=== PATIENT | female | born 1945 | race Caucasian/White ===

== ENCOUNTER → 2016-07-06 | Outpatient (CLI) | payer BC ==
[~2016-07-06] MED LIST: ASPI-435 PO; ATOR10TA82 PO; CALC600T37 PO; LEVO25TA5 PO; NRV/5 PO; TRAV0.00 OP
--- NOTE | 2016-07-06 16:44 | MAMMOGRAPHY REPORT ---
BILATERAL DIGITAL SCREENING MAMMOGRAM TOMOSYNTHESIS WITH CAD: 07/06/2016 CLINICAL HISTORY: Routine screening. Patient has no complaints. TECHNIQUE: Breast tomosynthesis in addition to standard 2D mammography was performed. Current study was also evaluated with a Computer Aided Detection (CAD) system. COMPARISON: Comparison is made to exams dated: 07/16/2015 mammogram, 07/16/2015 ultrasound, 07/06/2015 mammogram, 07/04/2014 mammogram, 07/03/2013 mammogram, and 07/02/2012 mammogram - [facility]. BREAST COMPOSITION: There are scattered areas of fibroglandular density in both breasts. FINDINGS: No suspicious masses, calcifications, or areas of architectural distortion are noted in e ither breast. There has been no significant interval change compared to prior exams. IMPRESSION: ACR BI-RADS CATEGORY 1: NEGATIVE There is no mammographic evidence of malignancy. A 1 year screening mammogram is recommended. The p atient will receive written notification of the results. Approximately 10% of breast cancers are not detected with mammography. A negative mammographic repor t should not delay biopsy if a clinically suggestive mass is present. Jonelle Hernandez M.D. ah/:07/06/2016 15:52:31 Relationship Counselor: Monica HENAO(R)(M), [facility] letter sent: Normal 1/2 BI-RADS Code: ACR BI-RADS Category 1: Negative
== END | disposition home or self-care (01) ==
LOC: C.MAMM 11:11
PROVIDERS: ATTEND Family Medicine
DX: Z12.31 Encounter for screening mammogram for malignant neoplasm of breast (principal)

== ENCOUNTER → 2017-01-24 | Day surgery (SDC) | payer BC ==
[2016-12-29 08:17] VITALS: Ht 162.6 cm; Wt 93.2 kg
[~2017-01-24] VITALS: Ht 162.6 cm; Wt 93.2 kg
[~2017-01-24] MED LIST changes: +500ML BSS 0.3ML EPI 1:1000PF IRRIG ONE; +ACETAMINOPHEN 325 MG TAB PO PRN; +AMVISC PLUS 0.8ML SYRINGE INT OCU ONE; +ATROPINE SULFATE 0.1 MG/ML 5ML SYR IV PRN; +BSS FLUSH ONE; +EpHEDrine SULFATE INJ 50 MG/ML AMP IV PRN; +EpINEphrine INJ 1MG/ML AMP 1 MG/ML AMP ONE; +LACTATED RINGER'S 1000ML 500 ML IV SCH; +LIDOCAINE 3.5% OPH GEL PER APPLICATION CHARGE ONE; +LIDOCAINE HCL 1% MPF 2 ML VIAL ONE; +MIDAZOLAM HCL 1 MG/ML 2ML VIAL ONE; +OCUCOAT 1 ML SOLN IO ONE; +POVIDONE-IODINE OP SOLN 30 ML BTL ONE; +PROPARACAINE 0.5% OP SOLN PER DROP CHARGE OPR SCH; +TOBRAMYCIN/DEXAMETHASONE OPH OINT PER APPLN CHARGE ONE
[2017-01-24] MEDS: PHENYLEPHRINE HCL 2.5% OP SOLN PER DROP CHARGE OPR SCH ×2 (06:44→06:49)
[2017-01-24] MEDS: TROPICAMIDE 1% OP SOLN PER DROP CHARGE OPR SCH ×2 (06:45→06:50)
[2017-01-24] MEDS: CYCLOPENTOLATE HCL 1% OP SOLN PER DROP CHARGE OPR SCH ×2 (06:46→06:51)
[2017-01-24] MEDS: KETOROLAC 0.5% OP SOLN PER DROP CHARGE OPR SCH ×2 (06:47→06:52)
[2017-01-24] MEDS: GATIFLOXACIN OP SOLN PER DROP CHARGE OPR SCH ×2 (06:48→06:53)
--- NOTE | 2017-01-24 07:38 | History & Physical Bridge - SC ---
H&P Re-Evaluation Bridge Note: I have examined the patient, reviewed the History & Physical and in the interval since the performance of the History & Physical I have noted the following changes of clinical significance: No changes noted
--- NOTE | 2017-01-24 07:59 | Discharge Instructions-SurgCtr ---
Discharge Instructions Date of Service Jan 24, 2017. Visit Reason for Visit: Cataract Right Eye Discharge Discharge Diagnosis / Problem: cataract Discharge Goals Goal(s): Improve function Medications Stopped Medications Name(s): Only took two medications this morning. Activity Recommendations Activity Limitations: per Instructions/Follow-up section Anesthesia . Post Anesthesia Instructions: If you have had General Anesthesia or IV Sedation: * Do not drive today. * Resume driving when surgeon permits. * Do not make important decisions or sign legal documents today. * Call surgeon for: 1. Temperature elevations greater than 101 degrees F. 2. Uncontrollable pain. 3. Excessive bleeding. 4. Persistent nausea and vomiting. 5. Medication intolerance (nausea, vomiting or rash). * For nausea and vomiting use only clear liquids such as: tea, soda, bouillon until nausea subsides, then gradually increase diet as tolerated. * If you have any concerns or questions, call your surgeon's office. If physician is unavailable and it is an emergency, call 911 or go to the nearest emergency room. . Diet Recommendations Home Diet: resume previous diet Procedures Procedures Performed: Right Eye Cataract Phacoemulsification With Intraocular Lens Implant Pending Studies Studies pending at discharge: no Medical Emergencies . Who to Call and When: Medical Emergencies: If at any time you feel your situation is an emergency, please call 911 immediately. . Non-Emergent Contact Non-Emergency issues call your: Social Research Assistant . . "Provider Documentation" section prepared by Estuardo Doe. .
[2017-01-24 08:00] VITALS: TEMP 36.8
--- NOTE | 2017-01-24 08:00 | [facility] Operative Report ---
Operative Report Date of Service Jan 24, 2017. Operative Report 1. PREOPERATIVE DIAGNOSIS: Cataract of the right eye. 2. POSTOPERATIVE DIAGNOSIS: Same. 3. PROCEDURE: Phacoemulsification with intraocular lens implantation of the right eye. SURGEON: Dr. Estuardo Doe. ANESTHESIA: Topical Lidocaine gel, 1% Non- Preserved intracameral Lidocaine, and monitored intravenous sedation. INDICATIONS FOR THE PROCEDURE: The patient is a 71 - year-old female with a history of cataract of the right eye causing significant visual impairment. The details of the proposed procedure were explained to the patient who asked appropriate questions and following discussion of all risks, benefits and alternatives agreed to have the procedure done. 4. OPERATION AND FINDINGS: DESCRIPTION OF PROCEDURE: After informed consent was obtained, the patient was brought to the Operating Room at the [facility]. The patient was placed in a supine position and then the right eye was prepped and draped in the usual sterile fashion for intraocular surgery. A drop of topical Lidocaine gel was placed in the operative eye. A wire lid speculum was then placed in the fornices. A corneal paracentesis was then created temporally. The Non-Preserved Lidocaine was then instilled into the anterior chamber. The anterior chamber was then pressurized with viscoelastic. A 2.0 mm clear corneal incision was then created temporally. A cystotome was inserted into the anterior chamber and used to create a tear in the anterior lens capsule. This capsular tear was then used to create a small flap and the flap was dragged in a counterclockwise direction in order to create a continuous curvilinear capsulorrhexis. Hydrodissection was accomplished with balanced salt solution. Phacoemulsification of the lens nucleus was then performed in a standard [id number] technique. The phaco time was 18 seconds with an average power of 9 %. The remaining cortical material was removed using irrigation aspiration. The capsular bag was then filled with viscoelastic. A [employer]ch [employer] Lomb MI60L +11.0 diopters lens was then loaded into the injector and injected into the capsular bag. The remaining viscoelastic was removed with the irrigation aspiration handpiece. The wound was hydrated and then checked and found to be watertight. The intraocular pressure was checked and found to be adequate. The wire lid speculum was removed and the patient's face was cleaned and dried. TobraDex ointment was placed in the inferior fornix. The patient was discharged to the Recovery Room having tolerated the procedure well. There were no complications. The patient will be seen tomorrow in the office for follow-up. I attest to the content of the Intraoperative Record and any orders documented therein. Any exceptions are noted below.
[2017-01-24 08:20] VITALS: BP 150/89; PULSE 76; O2SAT 96
--- NOTE | 2017-01-24 08:28 | Anesthesiology Progress Note ---
Anesthesia Post Op Note Date & Time Jan 24, 2017 at 08:27 Vital Signs Pain Intensity: 0 Vital Signs Past 12 Hours Date Time Temp Pulse Resp B/P (MAP) Pulse Ox O2 Delivery O2 Flow Rate FiO2 01/24/17 08:00 36.8 77 16 165/96 (119) 95 Room Air 01/24/17 06:33 36.6 75 16 144/85 (104) 97 Room Air Notes Mental Status: alert / awake / arousable, participated in evaluation Nausea / Vomiting: adequately controlled Pain: adequately controlled Airway Patency, RR, SpO2: stable & adequate BP & HR: stable & adequate Hydration State: stable & adequate Anesthetic Complications: no major complications apparent
== END | disposition home or self-care (01) ==
LOC: X.SURG 06:20
PROVIDERS: ATTEND Ophthalmology
DX: H26.9 Unspecified cataract (principal); I10 Essential (primary) hypertension; E78.5 Hyperlipidemia, unspecified; E03.9 Hypothyroidism, unspecified; Z79.82 Long term (current) use of aspirin; Z79.899 Other long term (current) drug therapy

== ENCOUNTER → 2017-02-21 | Day surgery (SDC) | payer BC ==
[2017-01-31 10:43] VITALS: Ht 162.6 cm; Wt 93.2 kg
[~2017-02-21] VITALS: Ht 162.6 cm; Wt 93.2 kg
[~2017-02-21] MED LIST changes: +FENTANYL CITRATE INJ 50 MCG/1 ML 2 ML VIAL ONE; -OCUCOAT 1 ML SOLN IO ONE; +ONDANSETRON INJ 2 MG/ML 2 ML VIAL IV PRN; +PROPARACAINE 0.5% OP SOLN PER DROP CHARGE OPL SCH; -PROPARACAINE 0.5% OP SOLN PER DROP CHARGE OPR SCH
[2017-02-21] MEDS: PHENYLEPHRINE HCL 2.5% OP SOLN PER DROP CHARGE OPL SCH ×2 (10:21→10:26)
[2017-02-21] MEDS: TROPICAMIDE 1% OP SOLN PER DROP CHARGE OPL SCH ×2 (10:22→10:27)
[2017-02-21] MEDS: CYCLOPENTOLATE HCL 1% OP SOLN PER DROP CHARGE OPL SCH ×2 (10:23→10:28)
[2017-02-21] MEDS: KETOROLAC 0.5% OP SOLN PER DROP CHARGE OPL SCH ×2 (10:24→10:29)
[2017-02-21] MEDS: GATIFLOXACIN OP SOLN PER DROP CHARGE OPL SCH ×2 (10:25→10:35)
--- NOTE | 2017-02-21 11:52 | Discharge Instructions-SurgCtr ---
Discharge Instructions Date of Service Feb 21, 2017. Visit Reason for Visit: Cataract Left Eye Discharge Discharge Diagnosis / Problem: cataract Discharge Goals Goal(s): Improve function Activity Recommendations Activity Limitations: per Instructions/Follow-up section Anesthesia . Post Anesthesia Instructions: If you have had General Anesthesia or IV Sedation: * Do not drive today. * Resume driving when surgeon permits. * Do not make important decisions or sign legal documents today. * Call surgeon for: 1. Temperature elevations greater than 101 degrees F. 2. Uncontrollable pain. 3. Excessive bleeding. 4. Persistent nausea and vomiting. 5. Medication intolerance (nausea, vomiting or rash). * For nausea and vomiting use only clear liquids such as: tea, soda, bouillon until nausea subsides, then gradually increase diet as tolerated. * If you have any concerns or questions, call your surgeon's office. If physician is unavailable and it is an emergency, call 911 or go to the nearest emergency room. . Diet Recommendations Home Diet: resume previous diet Procedures Procedures Performed: Left Cataract Phacoemulsification With Intraocular Lens Implant Pending Studies Studies pending at discharge: no Medical Emergencies . Who to Call and When: Medical Emergencies: If at any time you feel your situation is an emergency, please call 911 immediately. . Non-Emergent Contact Non-Emergency issues call your: Mobile Tester . . "Provider Documentation" section prepared by Estuardo Doe. .
--- NOTE | 2017-02-21 11:52 | [facility] Operative Report ---
Operative Report Date of Service Feb 21, 2017. Operative Report 1. PREOPERATIVE DIAGNOSIS: Cataract of the left eye. 2. POSTOPERATIVE DIAGNOSIS: Same. 3. PROCEDURE: Phacoemulsification with intraocular lens implantation of the left eye. SURGEON: Dr. Estuardo Doe. ANESTHESIA: Topical Lidocaine gel, 1% Non- Preserved intracameral Lidocaine, and monitored intravenous sedation. INDICATIONS FOR THE PROCEDURE: The patient is a 71 - year-old female with a history of cataract of the left eye causing significant visual impairment. The details of the proposed procedure were explained to the patient who asked appropriate questions and following discussion of all risks, benefits and alternatives agreed to have the procedure done. 4. OPERATION AND FINDINGS: DESCRIPTION OF PROCEDURE: After informed consent was obtained, the patient was brought to the Operating Room at the [facility]. The patient was placed in a supine position and then the left eye was prepped and draped in the usual sterile fashion for intraocular surgery. A drop of topical Lidocaine gel was placed in the operative eye. A wire lid speculum was then placed in the fornices. A corneal paracentesis was then created temporally. The Non-Preserved Lidocaine was then instilled into the anterior chamber. The anterior chamber was then pressurized with viscoelastic. A 2.0 mm clear corneal incision was then created temporally. A cystotome was inserted into the anterior chamber and used to create a tear in the anterior lens capsule. This capsular tear was then used to create a small flap and the flap was dragged in a counterclockwise direction in order to create a continuous curvilinear capsulorrhexis. Hydrodissection was accomplished with balanced salt solution. Phacoemulsification of the lens nucleus was then performed in a standard [id number]-[id number]-[id number] technique. The phaco time was 19 seconds with an average power of 12 %. The remaining cortical material was removed using irrigation aspiration. The capsular bag was then filled with viscoelastic. A Bausch & Lomb MI60L +14.5 diopters lens was then loaded into the injector and injected into the capsular bag. The remaining viscoelastic was removed with the irrigation aspiration handpiece. The wound was hydrated and then checked and found to be watertight. The intraocular pressure was checked and found to be adequate. The wire lid speculum was removed and the patient's face was cleaned and dried. TobraDex ointment was placed in the inferior fornix. The patient was discharged to the Recovery Room having tolerated the procedure well. There were no complications. The patient will be seen tomorrow in the office for follow-up. I attest to the content of the Intraoperative Record and any orders documented therein. Any exceptions are noted below.
[2017-02-21 11:54] VITALS: TEMP 36.5
[2017-02-21 12:11] VITALS: BP 131/82; PULSE 71; O2SAT 95
--- NOTE | 2017-02-21 12:17 | Anesthesiology Progress Note ---
Anesthesia Post Op Note Date & Time Feb 21, 2017 at 12:17 Vital Signs Pain Intensity: 0 Vital Signs Past 12 Hours Date Time Temp Pulse Resp B/P (MAP) Pulse Ox O2 Delivery O2 Flow Rate FiO2 02/21/17 12:11 71 20 131/82 (98) 95 Room Air 02/21/17 11:54 36.5 70 18 127/80 (96) 95 Room Air 02/21/17 10:18 36.6 68 16 166/87 (113) 94 Room Air Notes Mental Status: alert / awake / arousable, participated in evaluation Nausea / Vomiting: adequately controlled Pain: adequately controlled Airway Patency, RR, SpO2: stable & adequate BP & HR: stable & adequate Hydration State: stable & adequate Anesthetic Complications: no major complications apparent
== END | disposition home or self-care (01) ==
LOC: X.SURG 09:47
PROVIDERS: ATTEND Ophthalmology
DX: H26.9 Unspecified cataract (principal); E03.9 Hypothyroidism, unspecified; I10 Essential (primary) hypertension; E78.00 Pure hypercholesterolemia, unspecified; Z98.51 Tubal ligation status; Z98.41 Cataract extraction status, right eye; Z79.82 Long term (current) use of aspirin; Z88.0 Allergy status to penicillin

== ENCOUNTER → 2017-07-07 | Outpatient (CLI) | payer BC ==
[~2017-07-07] MED LIST changes: -500ML BSS 0.3ML EPI 1:1000PF IRRIG ONE; -ACETAMINOPHEN 325 MG TAB PO PRN; -AMVISC PLUS 0.8ML SYRINGE INT OCU ONE; -ATROPINE SULFATE 0.1 MG/ML 5ML SYR IV PRN; -BSS FLUSH ONE; -EpHEDrine SULFATE INJ 50 MG/ML AMP IV PRN; -EpINEphrine INJ 1MG/ML AMP 1 MG/ML AMP ONE; -FENTANYL CITRATE INJ 50 MCG/1 ML 2 ML VIAL ONE; -LACTATED RINGER'S 1000ML 500 ML IV SCH; -LIDOCAINE 3.5% OPH GEL PER APPLICATION CHARGE ONE; -LIDOCAINE HCL 1% MPF 2 ML VIAL ONE; -MIDAZOLAM HCL 1 MG/ML 2ML VIAL ONE; -ONDANSETRON INJ 2 MG/ML 2 ML VIAL IV PRN; -POVIDONE-IODINE OP SOLN 30 ML BTL ONE; -PROPARACAINE 0.5% OP SOLN PER DROP CHARGE OPL SCH; -TOBRAMYCIN/DEXAMETHASONE OPH OINT PER APPLN CHARGE ONE
--- NOTE | 2017-07-07 15:14 | MAMMOGRAPHY REPORT ---
BILATERAL DIGITAL SCREENING MAMMOGRAM TOMOSYNTHESIS WITH CAD: 07/07/2017 CLINICAL HISTORY: Routine screening. Patient has no complaints. TECHNIQUE: Breast tomosynthesis in addition to standard 2D mammography was performed. Current study was also evaluated with a Computer Aided Detection (CAD) system. COMPARISON: Comparison is made to exams dated: 07/06/2016 mammogram, 07/16/2015 mammogram, 07/16/2015 u ltrasound, 07/06/2015 mammogram, 07/04/2014 mammogram, and 07/03/2013 mammogram - [facility]. BREAST COMPOSITION: There are scattered areas of fibroglandular density in both breasts. FINDINGS: No suspicious masses, calcifications, or areas of architectural distortion are noted in ei ther breast. There has been no significant interval change compared to prior exams. IMPRESSION: ACR BI-RADS CATEGORY 1: NEGATIVE There is no mammographic evidence of malignancy. A 1 year screening mammogram is recommended. The pa tient will receive written notification of the results. Approximately 10% of breast cancers are not detected with mammography. A negative mammographic report should not delay biopsy if a clinically suggestive mass is present. Jonelle Hernandez M.D. /:07/07/2017 13:35:59 Gun Stocker: Claudia HENAO(Samantha)([place]), [facility] letter sent: Normal 1/2 BI-RADS Code: ACR BI-RADS Category 1: Negative
== END | disposition home or self-care (01) ==
LOC: C.MAMM 11:07
PROVIDERS: ATTEND Family Medicine
DX: Z12.31 Encounter for screening mammogram for malignant neoplasm of breast (principal)

== ENCOUNTER 2020-10-26 08:48 | Inpatient (IN) ==
[2020-10-26] MEDS ORDERED: ACETAMINOPHEN 325 MG TAB PO STA (09:18)
[2020-10-26] MEDS ORDERED: SODIUM CHLORIDE 0.9% 1000ML 1,000 ML IV SCH (09:30)
[2020-10-26 09:43] LABS: Basophils # (auto) 0.02 K/uL (0-0.2); Basophils % (auto) 0.2 %; Eosinophils # (auto) 0.06 K/uL (0-0.5); Eosinophils % (auto) 0.5 %; Hematocrit (blood only) 42.8 % (37-47); Hemoglobin 13.8 g/dL (12.0-16.0); Immature Granulocytes # (auto) 0.04 K/uL (0.00-0.02); Immature Granulocytes % (auto) 0.3 %; Lymphocytes # (auto) 0.36 K/uL (1.2-3.4); Lymphocytes % (auto) 2.7 %; Mean Corpuscular Hemoglobin 27.8 pg (25-34); Mean Corpuscular Hgb Conc 32.2 g/dL (32-36); Mean Corpuscular Volume 86.1 fL (80-100); Mean Platelet Volume 9.2 fL (7.4-10.4); Monocytes # (auto) 0.42 K/uL (0.11-0.59); Monocytes % (auto) 3.2 %; Neutrophils # (auto) 12.33 K/uL (1.4-6.5); Neutrophils % (auto) 93.1 %; Platelet Count 187 K/uL (130-400); RDW Coefficient of Variation 13.5 % (11.5-14.5); RDW Standard Deviation 42.5 fL (36.4-46.3); Red Blood Count 4.97 M/uL (4.2-5.4); White Blood Count 13.23 K/uL (4.8-10.8)
--- NOTE | 2020-10-26 09:57 | XRay Report ---
SINGLE VIEW CHEST CLINICAL HISTORY: Sepsis. FINDINGS: An AP, portable, upright chest radiograph is compared to study dated 12/28/2017 and correlat ed with chest CT dated 04/01/2020. The cardiomediastinal silhouette is unremarkable. Suture material p rojects over the right apex. Interstitial and groundglass opacities are again seen in the mid to lowe r lungs bilaterally. This is similar appearance to 12/28/2017 examination as well as the 04/01/2020 CT. No large pleural effusion or pneumothorax is seen. The skeletal structures are osteopenic. The bony thorax is grossly intact. Calcific tendinopathy is noted in the right shoulder. IMPRESSION: Interstitial airspace opacities in the mid to lower lungs are similar in appearance to pr ior examinations, and likely represent chronic lung disease. There is no definite evidence of superim posed airspace consolidation. Clinical correlation will be required. ACT 112: Negative or not required by law. Electronically signed by: Hayden Swan M.D. 10/26/2020 9:56 AM
[2020-10-26 10:02] LABS: Alanine Aminotransferase 262 U/L (12-78); Albumin Level 3.7 gm/dl (3.4-5.0); Aspartate Aminotransferase 457 U/L (15-37); BUN Creatinine Ratio 16.2 (10-20); Blood Urea Nitrogen 13 mg/dl (7-18); Calcium 8.9 mg/dl (8.5-10.1); Carbon Dioxide 24 mmol/L (21-32); Chloride 106 mmol/L (98-107); Creatinine Clr Calc Pharmacy 62.9 ml/min; Est GFR (African American) 81.1 ml/min; Glucose 162 mg/dl (70-99); Magnesium 1.8 mg/dl (1.8-2.4); Potassium 3.7 mmol/L (3.5-5.1); Sodium 136 mmol/L (136-145)
[2020-10-26] MEDS ORDERED: ERTAPENEM SODIUM 10 ML IV STA (10:11)
[2020-10-26 10:13] LABS: Albumin Globulin Ratio 0.9 (0.9-2); Alkaline Phosphatase 154 U/L (45-117); Bilirubin,Total 2.1 mg/dl (0.2-1); Total Protein 7.7 gm/dl (6.4-8.2); Troponin I < 0.015 ng/ml (0-0.045)
--- NOTE | 2020-10-26 10:24 | Emergency Department Note ---
History of Present Illness General Chief complaint: Abdominal Pain Stated complaint: AB PAIN Time Seen by Provider: 10/26/20 09:04 Source: patient and EMS Mode of arrival: ambulatory Limitations: no limitations History of Present Illness Provider complaint: Abdominal pain Maximum Pain Intensity: 3 75 yo F Hx ILD on 2LNC at night, JAZLYN, HTN, HLD, hypothyroidism presents to the ER for chills, abdominal/back pain, vomiting intermittent since Monday evening. Does not endorse SOB, chest pain, diarrhea, bloody stools, sore throat, nasal congestion, loss of taste or smell. Does not endorse sick contacts. Endorses a history of "gallbladder issues" in the past. This AM when her back pain started back up she came to the ER. Of note she wears 2LNC at night for her ILD, but does not typically wear O2 during the daytime. No prolonged periods of sitting or lying down. Home Medications Medication Instructions Recorded Confirmed Type amlodipine 5 mg tablet 5 mg PO QAM 12/19/17 10/26/20 History atorvastatin 10 mg tablet (Lipitor) 10 mg PO QPM 12/19/17 10/26/20 History calcium carbonate 600 mg calcium 600 mg PO BID 12/19/17 10/26/20 History (1,500 mg) tablet (Calcium) levothyroxine 25 mcg capsule 25 mcg PO QAM 12/19/17 10/26/20 History travoprost 0.004 % eye drops 1 drp OPHTHALMIC (EYE) HS 12/19/17 10/26/20 History (Travatan Z) citalopram 10 mg tablet (Celexa) 10 mg PO DAILY #30 tab 12/17/18 10/26/20 Rx Flutter Valve #1 ea 04/03/20 10/26/20 Rx mycophenolate mofetil 500 mg tablet 500 mg PO BID tab 04/03/20 10/26/20 History melatonin 3 mg capsule 3 mg PO DAILY PRN cap 05/14/20 10/26/20 History aspirin 81 mg tablet,delayed 81 mg PO QAM 10/26/20 10/26/20 History release (Aspirin Low Dose) Allergies Allergy/AdvReac Type Severity Reaction Status Date / Time Penicillins Allergy Intermediate FACIAL Verified 10/26/20 08:56 SWELLING povidone-iodine AdvReac Mild SWELLING Verified 10/26/20 08:56 BURNING EYE WITH INJECTION AROUND EYE Past Med/Surg History Medical History Antisynthetase syndrome Difficulty falling asleep at night until cadmium plater hours GERD (gastroesophageal reflux disease) Glaucoma Hyperlipidemia Hypertension Hypothyroidism Interstitial lung disease Left lower lobe pulmonary nodule Nocturnal hypoxia Obstructive sleep apnea syndrome Obstructive sleep apnea syndrome On home oxygen therapy 2L/MIN NC HS SOB (shortness of breath) on exertion Surgical History History of bilateral tubal ligation History of breast biopsy RIGHT-BENIGN History of cataract surgery R/L Social History Smoking Status: Never smoker Second Hand Exposure: No; Do You Dip or Chew Tobacco: No; Tobacco Cessation Education Requested by Patient: No Hx Alcohol Use: No Hx Substance Use: No Preferred Language: Yakut Communication Ability: Effective Visual Impairment: No Limitations Sampler Ovens Required: No Beliefs That Will Affect Care: None Current Living Situation: Spouse Other Information That Helps Us Care for You: No Feels Safe at Home: Yes Safety Concerns: Feels Safe At This Time Assistive Devices: None Review of Systems All systems reviewed & are unremarkable except as noted in HPI & below Constitutional: + chills and + malaise; no fever Ear, Nose, Mouth, Throat: no nasal congestion and no sore throat Respiratory: no cough and no dyspnea Cardiovascular: no chest pain, no palpitations and no edema Gastrointestinal: + abdominal pain (epigastric referred to back), + nausea and + vomiting; no constipation and no diarrhea/loose stools Genitourinary (Female): no dysuria and no hematuria Physical Exam Vital Signs Vital Signs - 24 hr 10/26/20 08:55 10/26/20 08:57 10/26/20 09:32 Temperature 38.3 C H Temperature Source Oral Pulse Rate 114 H 118 H 120 H Pulse Rate [Finger] Pulse Rate from SpO2 Sensor 114 H 118 H Pulse Rhythm Regular Pulse Strength Normal Respiratory Rate 32 H 22 37 H Respiratory Effort / Characteristics Non-Labored Spontaneous Respiratory Depth Normal Respiratory Pattern Regular Blood Pressure 216/95 H 216/95 H 174/72 H Blood Pressure [Left Arm] Blood Pressure Mean 135 135 106 Blood Pressure Mean [Left Arm] Blood Pressure Position Sitting Pulse Oximetry 98 87 L 98 Oxygen Delivery Method Nasal Cannula Room Air Nasal Cannula Oxygen Flow Rate 2 2 Sepsis Recent Fever Within 48 Hours Yes Sepsis New/Unexplained Change in Mental Status No Sepsis Action Taken by Nursing Physician Notified 10/26/20 10:00 10/26/20 11:00 10/26/20 11:30 Temperature Temperature Source Pulse Rate 115 H 101 H 98 H Pulse Rate [Finger] Pulse Rate from SpO2 Sensor 114 H 101 H 95 H Pulse Rhythm Pulse Strength Respiratory Rate 33 H 17 29 H Respiratory Effort / Characteristics Respiratory Depth Respiratory Pattern Blood Pressure 152/83 H 156/71 H 172/80 H Blood Pressure [Left Arm] Blood Pressure Mean 106 99 110 Blood Pressure Mean [Left Arm] Blood Pressure Position Pulse Oximetry 92 97 98 Oxygen Delivery Method Nasal Cannula Nasal Cannula Nasal Cannula Oxygen Flow Rate 2 2 2 Sepsis Recent Fever Within 48 Hours Sepsis New/Unexplained Change in Mental Status Sepsis Action Taken by Nursing 10/26/20 11:43 10/26/20 12:00 10/26/20 12:01 Temperature 37.3 C Temperature Source Oral Pulse Rate 98 H Pulse Rate [Finger] 92 H Pulse Rate from SpO2 Sensor 96 H Pulse Rhythm Pulse Strength Respiratory Rate 22 22 Respiratory Effort / Characteristics Respiratory Depth Respiratory Pattern Blood Pressure 137/96 Blood Pressure [Left Arm] 172/80 H Blood Pressure Mean 109 Blood Pressure Mean [Left Arm] 110 Blood Pressure Position Pulse Oximetry 98 97 Oxygen Delivery Method Room Air Nasal Cannula Oxygen Flow Rate 2 Sepsis Recent Fever Within 48 Hours Sepsis New/Unexplained Change in Mental Status Sepsis Action Taken by Nursing 10/26/20 12:30 Temperature Temperature Source Pulse Rate 89 Pulse Rate [Finger] Pulse Rate from SpO2 Sensor 88 Pulse Rhythm Pulse Strength Respiratory Rate 18 Respiratory Effort / Characteristics Respiratory Depth Respiratory Pattern Blood Pressure 169/81 H Blood Pressure [Left Arm] Blood Pressure Mean 110 Blood Pressure Mean [Left Arm] Blood Pressure Position Pulse Oximetry 95 Oxygen Delivery Method Oxygen Flow Rate Sepsis Recent Fever Within 48 Hours Sepsis New/Unexplained Change in Mental Status Sepsis Action Taken by Nursing see below Constitutional WD/WN, vitals as above Eyes PERRL, conjunctivae normal, anicteric sclerae ENMT external ear and nose normal, oropharynx normal Neck normal visual inspection Respiratory normal respiratory effort, lungs clear to auscultation Cardiovascular Rate/Rhythm: regular rhythm and + tachycardic Heart Sounds: + murmur (systolic over RUSB) Vessels: no JVD Extremities: no edema Gastrointestinal (Abdomen) normal bowel sounds, soft, nontender, no hepatosplenomegaly Musculoskeletal no cyanosis or clubbing, extremities motor strength 5/5 Skin no rashes, warm and dry Psychiatric A+Ox3, euthymic affect Course Administered Medications Amlodipine Besylate (Amlodipine Besylate 5 Mg Tab) 5 mg PO QAM [facility] Stop: 11/26/20 08:59 Last Admin: 10/29/20 09:02 Dose: 5 mg Documented by: [id number] Admin: 10/28/20 12:54 Dose: 5 mg Documented by: [id number] Admin: 10/27/20 09:00 Dose: 5 mg Documented by: [id number] Aspirin (Aspirin 81 Mg Ectab) [facility] [place]: 11/26/20 08:59 Last Admin: 10/29/20 08:30 Dose: 81 mg Documented by: [id number] Admin: 10/28/20 13:27 Dose: Not Given Documented by: [id number] Admin: 10/27/20 09:07 Dose: Not Given Documented by: [id number] Atorvastatin Calcium (Atorvastatin 10 Mg Tab) 10 mg PO QPM [facility] Stop: 11/25/20 20:59 Last Admin: 10/28/20 21:49 Dose: 10 mg Documented by: [id number] Admin: 10/27/20 20:37 Dose: 10 mg Documented by: [id number] Admin: 10/26/20 21:19 Dose: 10 mg Documented by: [id number] Calcium Carbonate (Calcium Carbonate 1250mg Tab) 1,250 mg PO BIDM [facility] Stop: 11/25/20 16:59 Last Admin: 10/29/20 09:02 Dose: 1,250 mg Documented by: [id number] Admin: 10/28/20 17:47 Dose: 1,250 mg Documented by: [id number] Admin: 10/28/20 12:53 Dose: 1,250 mg Documented by: [id number] Admin: 10/27/20 17:04 Dose: 1,250 mg Documented by: [id number] Admin: 10/27/20 09:05 Dose: Not Given Documented by: [id number] Admin: 10/26/20 17:26 Dose: Not Given Documented by: [id number] Citalopram Hydrobromide (Citalopram 20 Mg Tab) 10 mg PO DAILY [facility] Stop: 11/26/20 08:59 Last Admin: 10/29/20 09:02 Dose: 10 mg Documented by: [id number] Admin: 10/28/20 12:54 Dose: 10 mg Documented by: [id number] Admin: 10/27/20 09:07 Dose: Not Given Documented by: [id number] Enoxaparin Sodium (Enoxaparin Inj 40 Mg/0.4 Ml Syr) 40 mg SQ QAM [facility] Stop: 11/28/20 08:59 Last Admin: 10/29/20 09:02 Dose: 40 mg Documented by: [id number] Ertapenem 1,000 mg/ Sodium (Chloride) 60 mls @ 100 mls/hr IV Q24H [facility] Stop: 11/05/20 09:59 Last Infusion: 10/29/20 10:14 Dose: 0 mls/hr Documented by: [id number] Admin: 10/29/20 09:38 Dose: 100 mls/hr Documented by: [id number] Infusion: 10/28/20 14:06 Dose: 0 mls/hr Documented by: [id number] Admin: 10/28/20 12:59 Dose: 100 mls/hr Documented by: [id number] Infusion: 10/27/20 13:01 Dose: 0 mls/hr Documented by: [id number] Admin: 10/27/20 09:58 Dose: 100 mls/hr Documented by: [id number] Lactated Ringer's (Lr) 1,000 mls @ 80 mls/hr IV .[id number] [facility] Stop: 11/27/20 13:11 Last Admin: 10/29/20 03:35 Dose: 80 mls/hr Documented by: [id number] Infusion: 10/29/20 02:49 Dose: 80 mls/hr Documented by: [id number] Admin: 10/28/20 14:19 Dose: 80 mls/hr Documented by: [id number] Levothyroxine Sodium (Levothyroxine Sodium 25 Mcg Tablet) 25 mcg PO DAILYBB [facility] Stop: 11/26/20 06:29 Last Admin: 10/29/20 06:29 Dose: 25 mcg Documented by: [id number] Admin: 10/28/20 05:39 Dose: Not Given Documented by: [id number] Admin: 10/27/20 06:19 Dose: 25 mcg Documented by: [id number] Melatonin (Melatonin 3 Mg Tab) 3 mg PO HSZ PRN PRN Reason: Sleep Stop: 11/25/20 14:57 Last Admin: 10/28/20 21:49 Dose: 3 mg Documented by: [id number] Admin: 10/27/20 20:41 Dose: 3 mg Documented by: [id number] Admin: 10/27/20 00:28 Dose: 3 mg Documented by: [id number] Mycophenolate Mofetil (Mycophenolate Mofetil 250 Mg Cap) 500 mg PO BID [facility] Stop: 11/27/20 20:59 Last Admin: 10/29/20 08:30 Dose: 500 mg Documented by: [id number] Admin: 10/28/20 22:48 Dose: 500 mg Documented by: [id number] Travoprost (Travoprost Z 0.004% Oph Soln 2.5 Ml Btl) 1 drops OP HS [facility] Stop: 11/25/20 20:59 Last Admin: 10/28/20 21:43 Dose: 1 drops Documented by: [id number] Admin: 10/27/20 20:37 Dose: 1 drops Documented by: [id number] Admin: 10/26/20 21:18 Dose: 1 drops Documented by: [id number] Discontinued Medications Acetaminophen (Acetaminophen 325 Mg Tab) 650 mg PO NOW STA Stop: 10/26/20 09:19 Last Admin: 10/26/20 10:07 Dose: 650 mg Documented by: [id number] Bacitracin (Bacitracin Oint 15 Gm Tube) Confirm Administered Dose 45 appln .ROU TE .STK-MED ONE Stop: 10/28/20 08:57 Last Admin: 10/28/20 10:54 Dose: 1 appln Documented by: [id number] Bupivacaine HCl (Bupivacaine 0.5 % 5 Mg/1 Ml Mpf 30ml Vial) Confirm Administered Dose 30 ml .ROUTE .STK-MED ONE Stop: 10/28/20 08:57 Last Admin: 10/28/20 10:55 Dose: 20 ml Documented by: [id number] Ciprofloxacin (Ciprofloxacin 400mg / 200ml D5w) Confirm Administered Dose 400 mg IV .STK-MED ONE Stop: 10/28/20 08:41 Last Admin: 10/28/20 09:24 Dose: Not Given Documented by: [id number] Heparin Sodium (Porcine) (Heparin Sod 5,000 Unit/0.5 Ml Vial) 5,000 units SQ Q 12 [facility] Stop: 11/25/20 20:59 Last Admin: 10/27/20 09:07 Dose: Not Given Documented by: [id number] Admin: 10/26/20 21:19 Dose: 5,000 units Documented by: [id number] Sodium Chloride (Nss 1000ml) 1,000 mls @ 999 mls/hr IV .Q1H1M [facility] Stop: 10/26/20 10:30 Last Infusion: 10/26/20 12:00 Dose: 0 mls/hr Documented by: [id number] Admin: 10/26/20 10:00 Dose: 999 mls/hr Documented by: [id number] Ertapenem (Invanz) 10 mls @ 2 mls/min IV NOW STA Stop: 10/26/20 10:15 Last Admin: 10/26/20 11:15 Dose: 2 mls/min Documented by: [id number] Potassium Chloride/Sodium Chloride (Normal Saline W/20 Meq Kcl) 20 meq in 1,000 mls @ 125 mls/hr IV .Q8H [facility] Stop: 11/25/20 13:14 Last Admin: 10/28/20 13:19 Dose: Not Given Documented by: [id number] Infusion: 10/28/20 08:25 Dose: 0 mls/hr Documented by: [id number] Admin: 10/28/20 00:10 Dose: 125 mls/hr Documented by: [id number] Infusion: 10/28/20 00:10 Dose: 125 mls/hr Documented by: [id number] Admin: 10/27/20 16:29 Dose: 125 mls/hr Documented by: [id number] Infusion: 10/27/20 16:29 Dose: 0 mls/hr Documented by: [id number] Infusion: 10/27/20 12:59 Dose: 125 mls/hr Documented by: [id number] Admin: 10/27/20 05:30 Dose: 125 mls/hr Documented by: [id number] Infusion: 10/27/20 05:18 Dose: 125 mls/hr Documented by: [id number] Admin: 10/26/20 21:18 Dose: 125 mls/hr Documented by: [id number] Infusion: 10/26/20 21:18 Dose: 125 mls/hr Documented by: [id number] Admin: 10/26/20 16:53 Dose: 125 mls/hr Documented by: [id number] Lorazepam (Ativan) 0.25 mg in 0.5 mls @ 0.5 mls/min IV NOW STA Stop: 10/26/20 14:58 Last Admin: 10/26/20 15:22 Dose: 0.5 mls/min Documented by: [id number] Ciprofloxacin (Cipro / D5w) 400 mg in 200 mls @ 100 mls/hr IV PREOP [facility]; Protocol Stop: 10/30/20 05:59 Last Infusion: 10/28/20 13:13 Dose: 0 mls/hr Documented by: [id number] Admin: 10/28/20 09:18 Dose: 100 mls/hr Documented by: [id number] Indomethacin (Indomethacin 50 Mg Supp) 100 mg TX TODAY@1100 [facility] Stop: 10/27/20 15:00 Last Admin: 10/27/20 11:37 Dose: 100 mg Documented by: [id number] Ioversol (Optiray 320 125ml) 120 ml IV ONCE ONE Stop: 10/26/20 10:28 Last Admin: 10/26/20 10:28 Dose: 120 ml Documented by: [id number] Lidocaine HCl (Lidocaine 1% Local 20 Ml Vial) Confirm Administered Dose 20 ml .ROUTE .STK-MED ONE Stop: 10/28/20 08:57 Last Admin: 10/28/20 10:54 Dose: 20 ml Documented by: [id number] Medical Decision Making Differential Diagnosis Appendicitis, diverticulitis, UTI, obstruction, mesenteric ischemia, aortic pathology, inflammatory bowel disease, renal colic, PUD, pancreatitis, biliary pathology, hernia, volvulus, constipation, as well as other pathologies. Medical Records Attestation: I reviewed the patient's medical records. Home Medications Current Medication List: was personally reviewed by me Laboratory Data Attestation: I reviewed the patient's lab results. Result diagrams: 10/29/20 07:06 10/29/20 07:06 Lab Results 10/26/20 10/26/20 10/26/20 Range/Units 09:31 09:31 09:31 WBC 13.23 H (4.8-10.8) K/uL RBC 4.97 (4.2-5.4) M/uL Hgb 13.8 (12.0-16.0) g/dL Hct 42.8 (37-47) % MCV 86.1 (80-100) fL MCH 27.8 (25-34) pg MCHC 32.2 (32-36) g/dL RDW Std Deviation 42.5 (36.4-46.3) fL RDW Coeff of Julio 13.5 (11.5-14.5) % Plt Count 187 (130-400) K/uL MPV 9.2 (7.4-10.4) fL Immature Gran % (Auto) 0.3 % Neut % (Auto) 93.1 % Lymph % (Auto) 2.7 % Barton % (Auto) 3.2 % Eos % (Auto) 0.5 % Baso % (Auto) 0.2 % Neut # (Auto) 12.33 H (1.4-6.5) K/uL Lymph # (Auto) 0.36 L (1.2-3.4) K/uL Barton # (Auto) 0.42 (0.11-0.59) K/uL Eos # (Auto) 0.06 (0-0.5) K/uL Baso # (Auto) 0.02 (0-0.2) K/uL Immature Gran # (Auto) 0.04 H (0.00-0.02) K/uL PT Cancelled INR Cancelled APTT Cancelled PTT Ratio Cancelled Sodium 136 (136-145) mmol/L Potassium 3.7 (3.5-5.1) mmol/L Chloride 106 (98-107) mmol/L Carbon Dioxide 24 (21-32) mmol/L Anion Gap 6.0 (3-11) BUN 13 (7-18) mg/dl Creatinine 0.83 (0.6-1.2) mg/dl Est Cr Clr Drug Dosing 62.9 ml/min Est GFR ( Amer) 81.1 ml/min Est GFR (Non-Af Amer) 70.0 ml/min BUN/Creatinine Ratio 16.2 (10-20) Glucose 162 H (70-99) mg/dl Lactate (0.4-2.0) mmol/L Calcium 8.9 (8.5-10.1) mg/dl Magnesium 1.8 (1.8-2.4) mg/dl Total Bilirubin 2.1 H (0.2-1) mg/dl AST 457 H (15-37) U/L ALT 262 H (12-78) U/L Alkaline Phosphatase 154 H (45-117) U/L Troponin I < 0.015 (0-0.045) ng/ml Total Protein 7.7 (6.4-8.2) gm/dl Albumin 3.7 (3.4-5.0) gm/dl Globulin 4.0 (2.5-4.0) gm/dl Albumin/Globulin Ratio 0.9 (0.9-2) Procalcitonin (0-0.5) ng/ml Specimen Hemolysis COVID-19 Eval Order SARS-CoV-2 (PCR) (Negative) 10/26/20 10/26/20 10/26/20 Range/Units 09:31 09:31 10:09 WBC (4.8-10.8) K/uL RBC (4.2-5.4) M/uL Hgb (12.0-16.0) g/dL Hct (37-47) % MCV (80-100) fL MCH (25-34) pg MCHC (32-36) g/dL RDW Std Deviation (36.4-46.3) fL RDW Coeff of Julio (11.5-14.5) % Plt Count (130-400) K/uL MPV (7.4-10.4) fL Immature Gran % (Auto) % Neut % (Auto) % Lymph % (Auto) % Barton % (Auto) % Eos % (Auto) % Baso % (Auto) % Neut # (Auto) (1.4-6.5) K/uL Lymph # (Auto) (1.2-3.4) K/uL Barton # (Auto) (0.11-0.59) K/uL Eos # (Auto) (0-0.5) K/uL Baso # (Auto) (0-0.2) K/uL Immature Gran # (Auto) (0.00-0.02) K/uL PT INR APTT PTT Ratio Sodium (136-145) mmol/L Potassium (3.5-5.1) mmol/L Chloride (98-107) mmol/L Carbon Dioxide (21-32) mmol/L Anion Gap (3-11) BUN (7-18) mg/dl Creatinine (0.6-1.2) mg/dl Est Cr Clr Drug Dosing ml/min Est GFR ( Amer) ml/min Est GFR (Non-Af Amer) ml/min BUN/Creatinine Ratio (10-20) Glucose (70-99) mg/dl Lactate 1.3 (0.4-2.0) mmol/L Calcium (8.5-10.1) mg/dl Magnesium (1.8-2.4) mg/dl Total Bilirubin (0.2-1) mg/dl AST (15-37) U/L ALT (12-78) U/L Alkaline Phosphatase (45-117) U/L Troponin I (0-0.045) ng/ml Total Protein (6.4-8.2) gm/dl Albumin (3.4-5.0) gm/dl Globulin (2.5-4.0) gm/dl Albumin/Globulin Ratio (0.9-2) Procalcitonin 0.49 (0-0.5) ng/ml Specimen Hemolysis COVID-19 Eval Order Covid19 at [facility] SARS-CoV-2 (PCR) (Negative) 10/26/20 10/26/20 Range/Units 10:09 10:13 WBC (4.8-10.8) K/uL RBC (4.2-5.4) M/uL Hgb (12.0-16.0) g/dL Hct (37-47) % MCV (80-100) fL MCH (25-34) pg MCHC (32-36) g/dL RDW Std Deviation (36.4-46.3) fL RDW Coeff of Julio (11.5-14.5) % Plt Count (130-400) K/uL MPV (7.4-10.4) fL Immature Gran % (Auto) % Neut % (Auto) % Lymph % (Auto) % Barton % (Auto) % Eos % (Auto) % Baso % (Auto) % Neut # (Auto) (1.4-6.5) K/uL Lymph # (Auto) (1.2-3.4) K/uL Barton # (Auto) (0.11-0.59) K/uL Eos # (Auto) (0-0.5) K/uL Baso # (Auto) (0-0.2) K/uL Immature Gran # (Auto) (0.00-0.02) K/uL PT 9.8 INR 1.0 APTT 22.5 PTT Ratio 0.9 Sodium (136-145) mmol/L Potassium (3.5-5.1) mmol/L Chloride (98-107) mmol/L Carbon Dioxide (21-32) mmol/L Anion Gap (3-11) BUN (7-18) mg/dl Creatinine (0.6-1.2) mg/dl Est Cr Clr Drug Dosing ml/min Est GFR ( Amer) ml/min Est GFR (Non-Af Amer) ml/min BUN/Creatinine Ratio (10-20) Glucose (70-99) mg/dl Lactate (0.4-2.0) mmol/L Calcium (8.5-10.1) mg/dl Magnesium (1.8-2.4) mg/dl Total Bilirubin (0.2-1) mg/dl AST (15-37) U/L ALT (12-78) U/L Alkaline Phosphatase (45-117) U/L Troponin I (0-0.045) ng/ml Total Protein (6.4-8.2) gm/dl Albumin (3.4-5.0) gm/dl Globulin (2.5-4.0) gm/dl Albumin/Globulin Ratio (0.9-2) Procalcitonin (0-0.5) ng/ml Specimen Hemolysis COVID-19 Eval Order SARS-CoV-2 (PCR) NEGATIVE (Negative) Imaging Data Radiologist's Impression: Abdomen/Pelvis CT 10/26/20 09:17 CT ANGIOGRAM OF THE CHEST; CT SCAN OF THE ABDOMEN AND PELVIS WITH IV CONTRAST CLINICAL HISTORY: Atypical chest pain. Sepsis. Generalized abdominal pain. COMPARISON STUDY: Chest CT scans dated 04/01/2020 and 09/08/2017. Chest x-ray dated 10/26/2020. TECHNIQUE: Following the IV administration of 120 of Optiray 320, CT angiogram of the chest is performed from the upper abdomen to the thoracic inlet utilizing the pulmonary embolus protocol. Images are reviewed in the axial, sagittal, coronal planes. 3-D MIPS images are created and assessed. Subsequently, CT scan of the abdomen and pelvis was performed from the lung bases to the proximal femora. Images are reviewed in the axial, sagittal, and coronal planes. IV contrast was administered without complication. A dose lowering technique was utilized adhering to the principles of ALARA. CT DOSE: 1330.34 mGy.cm FINDINGS: CHEST: Thyroid: Imaged portions of the thyroid gland are normal in size and attenuation. Thoracic aorta: There is mild atherosclerotic calcification of the thoracic aorta, which is normal in caliber and demonstrates standard 3-vessel arch anatomy. No dissection is seen. Pulmonary vasculature: The pulmonary trunk is normal in caliber. There are no filling defects identified in the main, lobar, or segmental pulmonary arteries to indicate pulmonary embolus. Heart: The heart is normal in size and without pericardial effusion. There are coronary artery calcifications. Lungs and pleural spaces: Postoperative change is seen in the right upper and right middle lobes. There is no airspace consolidation typical for pneumonia or pleural effusion. Groundglass opacities with subpleural reticulation and foci of architectural distortion are again seen throughout both lungs. Mild traction bronchiectasis is seen in the lower lobes, this is consistent with chronic lung disease. The trachea and central airways are clear. Scattered foci of air mickey ing are seen throughout both lungs. Mediastinum: A mildly enlarged precarinal node measures 14 mm in short axis. Magy: Prominent hilar nodes measure up to 10 mm in short axis. Axillae: There is no axillary lymphadenopathy. Bony thorax: The skeletal structures are osteopenic. No lytic or blastic lesions are identified. ABDOMEN AND PELVIS: Liver: The contrast-enhanced liver is normal in size, contour, and attenuation. There is no intrahepatic or ductal dilatation. The hepatic veins and portal veins are patent. Gallbladder: There are several calcified gallstones which measure up to 2.1 cm. The gallbladder is distended. The gallbladder wall is thickened and edematous with mucosal hyperemia, and there is mild pericholecystic stranding. Findings are typical for acute cholecystitis. Spleen: Normal in size and attenuation. Pancreas: Unremarkable. Adrenal glands: A 12 mm right adrenal adenoma is unchanged. The left adrenal gland is normal as imaged. Kidneys: The contrast enhanced kidneys are normal in size and without hydronephrosis. Numerous renal sinus cysts are seen bilaterally. Scattered subcentimeter cortical hypodensities likely represent cysts but are too small for definitive characterization. The kidneys enhance symmetrically. Abdominal vasculature: The abdominal aorta is normal in course and caliber noting moderate atherosclerotic calcification. Stomach and bowel: There is a small hiatal hernia there is no bowel obstruction. A duodenal diverticulum is incidentally noted. The appendix is well-visualized and normal. Peritoneum: There is no intraperitoneal free air or abdominal ascites. Lymphadenopathy: None. Pelvic viscera: The bladder is normal as imaged. The endometrium appears thickened for age measuring up to 11 mm. No adnexal lesion is seen. Skeletal structures: The skeletal structures are osteopenic. There is mild lumbosacral spondylosis. Sclerotic change is noted in the sacroiliac joints and pubic symphysis. No lytic or blastic lesions are seen. Soft tissues: A 1.8 cm sebaceous cyst is noted in the left lower back on image #160. IMPRESSION: 1. Cholelithiasis with evidence of acute cholecystitis. Surgical consultation is advised. 2. There is no evidence of pulmonary embolus in the main, lobar, or segmental pulmonary arteries. 3. There is no airspace consolidation typical for pneumonia or pleural effusion. 4. Chronic parenchymal and postoperative changes as above suggesting chronic interstitial/inflammatory lung disease. This is similar in appearance to prior studies. 5. Mildly enlarged mediastinal and hilar nodes are nonspecific and likely related to chronic lung disease. 6. The endometrium appears thickened for age. This is not well assessed by CT, and nonemergent/outpatient gynecology follow-up and pelvic ultrasound are recommended for further evaluation. 7. Additional findings as above. ACT 112: Positive. There are findings on this exam that require communication between the performing entity and the patient following Patient Test Result Information Act ([place] Act 112) guidelines. Electronically signed by: Hayden Swan M.D. 10/26/2020 10:51 AM Chest CTA 10/26/20 09:17 CT ANGIOGRAM OF THE CHEST; CT SCAN OF THE ABDOMEN AND PELVIS WITH IV CONTRAST CLINICAL HISTORY: Atypical chest pain. Sepsis. Generalized abdominal pain. COMPARISON STUDY: Chest CT scans dated 04/01/2020 and 09/08/2017. Chest x-ray dated 10/26/2020. TECHNIQUE: Following the IV administration of 120 of Optiray 320, CT angiogram of the chest is performed from the upper abdomen to the thoracic inlet utilizing the pulmonary embolus protocol. Images are reviewed in the axial, sagittal, coronal planes. 3-D MIPS images are created and assessed. Subsequently, CT scan of the abdomen and pelvis was performed from the lung bases to the proximal femora. Images are reviewed in the axial, sagittal, and coronal planes. IV contrast was administered without complication. A dose lowering technique was utilized adhering to the principles of ALARA. CT DOSE: 1330.34 mGy.cm FINDINGS: CHEST: Thyroid: Imaged portions of the thyroid gland are normal in size and attenuation. Thoracic aorta: There is mild atherosclerotic calcification of the thoracic aorta, which is normal in caliber and demonstrates standard 3-vessel arch anatomy. No dissection is seen. Pulmonary vasculature: The pulmonary trunk is normal in caliber. There are no filling defects identified in the main, lobar, or segmental pulmonary arteries to indicate pulmonary embolus. Heart: The heart is normal in size and without pericardial effusion. There are coronary artery calcifications. Lungs and pleural spaces: Postoperative change is seen in the right upper and right middle lobes. There is no airspace consolidation typical for pneumonia or pleural effusion. Groundglass opacities with subpleural reticulation and foci of architectural distortion are again seen throughout both lungs. Mild traction bronchiectasis is seen in the lower lobes, this is consistent with chronic lung disease. The trachea and central airways are clear. Scattered foci of air trapping are seen throughout both lungs. Mediastinum: A mildly enlarged precarinal node measures 14 mm in short axis. Magy: Prominent hilar nodes measure up to 10 mm in short axis. Axillae: There is no axillary lymphadenopathy. Bony thorax: The skeletal structures are osteopenic. No lytic or blastic lesions are identified. ABDOMEN AND PELVIS: Liver: The contrast-enhanced liver is normal in size, contour, and attenuation. There is no intrahepatic or ductal dilatation. The hepatic veins and portal veins are patent. Gallbladder: There are several calcified gallstones which measure up to 2.1 cm. The gallbladder is distended. The gallbladder wall is thickened and edematous with mucosal hyperemia, and there is mild pericholecystic stranding. Findings are typical for acute cholecystitis. Spleen: Normal in size and attenuation. Pancreas: Unremarkable. Adrenal glands: A 12 mm right adrenal adenoma is unchanged. The left adrenal gland is normal as imaged. Kidneys: The contrast enhanced kidneys are normal in size and without hydronephrosis. Numerous renal sinus cysts are seen bilaterally. Scattered subcentimeter cortical hypodensities likely represent cysts but are too small for definitive characterization. The kidneys enhance symmetrically. Abdominal vasculature: The abdominal aorta is normal in course and caliber noting moderate atherosclerotic calcification. Stomach and bowel: There is a small hiatal hernia there is no bowel obstruction. A duodenal diverticulum is incidentally noted. The appendix is well-visualized and normal. Peritoneum: There is no intraperitoneal free air or abdominal ascites. Lymphadenopathy: None. Pelvic viscera: The bladder is normal as imaged. The endometrium appears thickened for age measuring up to 11 mm. No adnexal lesion is seen. Skeletal structures: The skeletal structures are osteopenic. There is mild lumbosacral spondylosis. Sclerotic change is noted in the sacroiliac joints and pubic symphysis. No lytic or blastic lesions are seen. Soft tissues: A 1.8 cm sebaceous cyst is noted in the left lower back on image #160. IMPRESSION: 1. Cholelithiasis with evidence of acute cholecystitis. Surgical consultation is advised. 2. There is no evidence of pulmonary embolus in the main, lobar, or segmental pulmonary arteries. 3. There is no airspace consolidation typical for pneumonia or pleural effusion. 4. Chronic parenchymal and postoperative changes as above suggesting chronic interstitial/inflammatory lung disease. This is similar in appearance to prior studies. 5. Mildly enlarged mediastinal and hilar nodes are nonspecific and likely related to chronic lung disease. 6. The endometrium appears thickened for age. This is not well assessed by CT, and nonemergent/outpatient gynecology follow-up and pelvic ultrasound are recommended for further evaluation. 7. Additional findings as above. ACT 112: Positive. There are findings on this exam that require communication between the performing entity and the patient following Patient Test Result Inf ormation Act ([place] Act 112) guidelines. Electronically signed by: Hayden Swan M.D. 10/26/2020 10:51 AM Chest X-Ray 10/26/20 09:17 SINGLE VIEW CHEST CLINICAL HISTORY: Sepsis. FINDINGS: An AP, portable, upright chest radiograph is compared to study dated 12/28/2017 and correlated with chest CT dated 04/01/2020. The cardiomediastinal silhouette is unremarkable. Suture material projects over the right apex. Interstitial and groundglass opacities are again seen in the mid to lower lungs bilaterally. This is similar appearance to 12/28/2017 examination as well as the 04/01/2020 CT. No large pleural effusion or pneumothorax is seen. The skeletal structures are osteopenic. The bony thorax is grossly intact. Calcific tendinopathy is noted in the right shoulder. IMPRESSION: Interstitial airspace opacities in the mid to lower lungs are similar in appearance to prior examinations, and likely represent chronic lung disease. There is no definite evidence of superimposed airspace consolidation. Clinical correlation will be required. ACT 112: Negative or not required by law. Electronically signed by: Hayden Swan M.D. 10/26/2020 9:56 AM ECG Data Attestation: I personally reviewed and interpreted this ECG as follows: Indication: + tachycardia Rate (beats per minute): 116 Rhythm: + sinus tachycardia ECG Intervals/blocks: + Normal QRS and + Normal QT-c ECG [place]: + Normal ECG ST segments: + Normal ST segments ECG Findings: + Other (Left atrial enlargement); no PACs or no PVCs MDM Narrative This patient was evaluated and appeared to be in no significant distress. IV access was obtained and laboratory work was drawn. An order for cardiac monitoring was placed and the patient is noted to be at 118 bpm. The patient was hydrated with normal saline solution, given p.o. Tylenol. Given her fever and tachycardia, the patient was covered with IV Invanz as the etiology of her symptoms was unclear initially. CT imaging of the chest and abdomen was performed and reveals an acute cholecystitis. This would be consistent with the patient's laboratory work, patient's WBC and LFTs are elevated. An MRCP was ordered and the hospitalist service as well as general surgery was consulted. Patient and were informed of the findings and plan. She will be evaluated for admission and further management. Impression & Plan Acute cholecystitis, Elevated liver function tests Discharge Plan Visit Data Patient Disposition: Admitted As Inpatient Discharge Instructions Interventions: ED Discharge Assessment Last Done: 10/26/20 14:23 Resident Activity Tracking Resident Involvement: Resident Care Provided Care Provided: Adult ED
[2020-10-26] MEDS ORDERED: OPTIRAY 320 125ml IV ONE (10:27)
[2020-10-26 10:33] LABS: Partial Thromboplastin Ratio 0.9; Partial Thromboplastin Time 22.5 Seconds (21.0-31.0); Prothrombin Time 9.8 Seconds (9.0-12.0)
--- NOTE | 2020-10-26 10:53 | CT Scan Report ---
CT ANGIOGRAM OF THE CHEST; CT SCAN OF THE ABDOMEN AND PELVIS WITH IV CONTRAST CLINICAL HISTORY: Atypical chest pain. Sepsis. Generalized abdominal pain. COMPARISON STUDY: Chest CT scans dated 04/01/2020 and 09/08/2017. Chest x-ray dated 10/26/2020. TECHNIQUE: Following the IV administration of 120 of Optiray 320, CT angiogram of the chest is perfor med from the upper abdomen to the thoracic inlet utilizing the pulmonary embolus protocol. Images are reviewed in the axial, sagittal, coronal planes. 3-D MIPS images are created and assessed. Subsequen tly, CT scan of the abdomen and pelvis was performed from the lung bases to the proximal femora. Imag es are reviewed in the axial, sagittal, and coronal planes. IV contrast was administered without comp lication. A dose lowering technique was utilized adhering to the principles of ALARA. CT DOSE: 1330.34 mGy.cm FINDINGS: CHEST: Thyroid: Imaged portions of the thyroid gland are normal in size and attenuation. Thoracic aorta: There is mild atherosclerotic calcification of the thoracic aorta, which is normal in caliber and demonstrates standard 3-vessel arch anatomy. No dissection is seen. Pulmonary vasculature: The pulmonary trunk is normal in caliber. There are no filling defects identif ied in the main, lobar, or segmental pulmonary arteries to indicate pulmonary embolus. Heart: The heart is normal in size and without pericardial effusion. There are coronary artery calcif ications. Lungs and pleural spaces: Postoperative change is seen in the right upper and right middle lobes. The re is no airspace consolidation typical for pneumonia or pleural effusion. Groundglass opacities with subpleural reticulation and foci of architectural distortion are again seen throughout both lungs. M ild traction bronchiectasis is seen in the lower lobes, this is consistent with chronic lung disease. The trachea and central airways are clear. Scattered foci of air trapping are seen throughout both l ungs. Mediastinum: A mildly enlarged precarinal node measures 14 mm in short axis. Magy: Prominent hilar nodes measure up to 10 mm in short axis. Axillae: There is no axillary lymphadenopathy. Bony thorax: The skeletal structures are osteopenic. No lytic or blastic lesions are identified. ABDOMEN AND PELVIS: Liver: The contrast-enhanced liver is normal in size, contour, and attenuation. There is no intrahepa tic or ductal dilatation. The hepatic veins and portal veins are patent. Gallbladder: There are several calcified gallstones which measure up to 2.1 cm. The gallbladder is di stended. The gallbladder wall is thickened and edematous with mucosal hyperemia, and there is mild pe richolecystic stranding. Findings are typical for acute cholecystitis. Spleen: Normal in size and attenuation. Pancreas: Unremarkable. Adrenal glands: A 12 mm right adrenal adenoma is unchanged. The left adrenal gland is normal as image d. Kidneys: The contrast enhanced kidneys are normal in size and without hydronephrosis. Numerous renal sinus cysts are seen bilaterally. Scattered subcentimeter cortical hypodensities likely represent cys ts but are too small for definitive characterization. The kidneys enhance symmetrically. Abdominal vasculature: The abdominal aorta is normal in course and caliber noting moderate atheroscle rotic calcification. Stomach and bowel: There is a small hiatal hernia there is no bowel obstruction. A duodenal diverticu lum is incidentally noted. The appendix is well-visualized and normal. Peritoneum: There is no intraperitoneal free air or abdominal ascites. Lymphadenopathy: None. Pelvic viscera: The bladder is normal as imaged. The endometrium appears thickened for age measuring up to 11 mm. No adnexal lesion is seen. Skeletal structures: The skeletal structures are osteopenic. There is mild lumbosacral spondylosis. S clerotic change is noted in the sacroiliac joints and pubic symphysis. No lytic or blastic lesions ar e seen. Soft tissues: A 1.8 cm sebaceous cyst is noted in the left lower back on image #160. IMPRESSION: 1. Cholelithiasis with evidence of acute cholecystitis. Surgical consultation is advised. 2. There is no evidence of pulmonary embolus in the main, lobar, or segmental pulmonary arteries. 3. There is no airspace consolidation typical for pneumonia or pleural effusion. 4. Chronic parenchymal and postoperative changes as above suggesting chronic interstitial/inflammator y lung disease. This is similar in appearance to prior studies. 5. Mildly enlarged mediastinal and hilar nodes are nonspecific and likely related to chronic lung dis ease. 6. The endometrium appears thickened for age. This is not well assessed by CT, and nonemergent/outpat ient gynecology follow-up and pelvic ultrasound are recommended for further evaluation. 7. Additional findings as above. ACT 112: Positive. There are findings on this exam that require communication between the performing entity and the patient following Patient Test Result Information Act ([place] Act 112) guidelines. Electronically signed by: Hayden Swan M.D. 10/26/2020 10:51 AM
[2020-10-26] MEDS ORDERED: HYDROmorphone INJ 0.5 MG/0.5 ML SYR IV PRN (13:30)
--- NOTE | 2020-10-26 13:30 | History & Physical Report ---
Date of Service October 26, 2020 Assessment & Plan (1) Acute calculous cholecystitis: Plan: Sepsis secondary to acute calculus cholecystitis with possible choledocholithiasis Presented with abdominal pain, nausea vomiting and fever Noted to have tachycardia, fever of more than 38 C and white count elevated at 13.23 Lactate was not elevated Blood cultures have been taken and she was started with Intravenous ertapenem and received intravenous fluid Has been feeling a lot better MRCP has been ordered GI and surgery services have been consulted We will keep n.p.o. for now Abnormal liver function test Obstructive feature Secondary to possible choledocholithiasis (2) Abdominal pain: Plan: Due to acute cholecystitis (3) Interstitial lung disease: Plan: Uses 2 L of oxygen at nighttime Noted to be minimally hypoxic and requiring 2 L oxygen now No evidence of pneumonia and or worsening of the ILD (4) Obstructive sleep apnea syndrome: Plan: Uses oxygen at nighttime (5) Left lower lobe pulmonary nodule: Plan: Is been followed up in the pulmonary clinic (6) Hypertension: Plan: Patient remains stable (7) Hyperlipidemia: Plan: Continue the medicine if she has been taking (8) Hypothyroidism: Plan: Continue supplement (9) Glaucoma: Plan: Continue current medications DVT prophylaxis Subcu heparin CODE STATUS Full History of Present Illness Chief Complaint: Abdominal pain with nausea vomiting since Monday evening Primary Care Provider: Alan Borrero MD She is a 75-year-old female with significant past medical history of interstitial lung disease with obstructive sleep apnea on 2 L of oxygen at night, hypertension, hyperlipidemia, hypothyroidism and glaucoma apparently has been complaining of upper abdominal pain with nausea and vomiting since Monday evening. The pain is associated with fever and chills. She denies any chest pain and/or shortness of breath, any diarrhea associated with it. She also complains to have loss of appetite for the last few days but denies any history of bloating of the abdomen after food. She was noted to have cholelithiasis with acute cholecystitis and possible choledocholithiasis in the emergency room and was admitted to the hospital for continuation of care. Allergies Allergy/AdvReac Type Severity Reaction Status Date / Time Penicillins Allergy Intermediate FACIAL Verified 10/26/20 08:56 SWELLING povidone-iodine AdvReac Mild SWELLING Verified 10/26/20 08:56 BURNING EYE WITH INJECTION AROUND EYE Home Medications Medication Instructions Recorded Confirmed Type amlodipine 5 mg tablet 5 mg PO QAM 12/19/17 10/26/20 History atorvastatin 10 mg tablet (Lipitor) 10 mg PO QPM 12/19/17 10/26/20 History calcium carbonate 600 mg calcium 600 mg PO BID 12/19/17 10/26/20 History (1,500 mg) tablet (Calcium) levothyroxine 25 mcg capsule 25 mcg PO QAM 12/19/17 10/26/20 History travoprost 0.004 % eye drops 1 drp OPHTHALMIC (EYE) HS 12/19/17 10/26/20 History (Travatan Z) citalopram 10 mg tablet (Celexa) 10 mg PO DAILY #30 tab 12/17/18 10/26/20 Rx Flutter Valve #1 ea 04/03/20 10/26/20 Rx mycophenolate mofetil 500 mg tablet 500 mg PO QID tab 04/03/20 10/26/20 History melatonin 3 mg capsule 3 mg PO DAILY PRN cap 05/14/20 10/26/20 History aspirin 81 mg tablet,delayed 81 mg PO QAM 10/26/20 10/26/20 History release (Aspirin Low Dose) Past Med/Surg History Medical History (Updated 10/26/20 @ 13:25 by Mauro Deshpande MD) Antisynthetase syndrome 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 GERD (gastroesophageal reflux disease) Glaucoma Hyperlipidemia Hypertension Hypothyroidism Interstitial lung disease Left lower lobe pulmonary nodule Nocturnal hypoxia Obstructive sleep apnea syndrome Obstructive sleep apnea syndrome On home oxygen therapy 2L/MIN NC HS SOB (shortness of breath) on exertion Surgical History History of bilateral tubal ligation History of breast biopsy RIGHT-BENIGN History of cataract surgery R/L Social History Smoking Status: Never smoker Second Hand Exposure: No (IN THE PAST); Hx Alcohol Use: No Hx Substance Use: No Preferred Language: Tajik Communication Ability: Effective Visual Impairment: No Limitations Reed Dipper Required: No Beliefs That Will Affect Care: None Current Living Situation: Spouse Feels Safe at Home: Yes Assistive Devices: Glasses and Walker Review of Systems Review of Systems: All systems reviewed & are unremarkable except as noted in HPI & below Physical Exam Physical Exam: Lying in bed without any acute discomfort Constitutional: well developed, well nourished and + obese; not ill appearing Eyes: PERRL, conjunctivae normal, anicteric sclerae ENMT: external ear and nose normal, oropharynx normal Neck: trachea midline, no thyromegaly Respiratory: no respiratory distress and no cough Auscultation: + dimini shed lung sounds and + crackles (Minimal bibasilar crackles) Cardiovascular: Rate/Rhythm: regular rate, regular rhythm and + tachycardic Heart Sounds: normal S1 and normal S2; no murmur Extremities: no edema Gastrointestinal (Abdomen): Inspection/Auscultation: normal bowel sounds; abdomen not distended Percussion/Palpation: abdomen soft; abdomen nontender (Negative James sign) and no hepatosplenomegaly Musculoskeletal: No acute arthritis in any joint Neurologic: Alert, awake and oriented x3. No focal sensory or motor deficit appreciated Lymphatic: no cervical or axillary lymphadenopathy Results & Data Results & Data ([facility]) Vital Signs (Past 12 Hours) Vital Signs Temp Pulse Pulse Resp BP BP Pulse Ox 10/26/20 12:01 98 H 22 137/96 97 10/26/20 12:00 37.3 C 10/26/20 11:43 92 H 22 172/80 H 98 10/26/20 11:30 98 H 29 H 172/80 H 98 10/26/20 11:00 101 H 17 156/71 H 97 10/26/20 10:00 115 H 33 H 152/83 H 92 10/26/20 09:32 120 H 37 H 174/72 H 98 10/26/20 08:57 38.3 C H 118 H 22 216/95 H 87 L 10/26/20 08:55 114 H 32 H 216/95 H 98 Laboratory Results Short CBC 10/26/20 Range/Units 09:31 WBC 13.23 H (4.8-10.8) K/uL Hgb 13.8 (12.0-16.0) g/dL Hct 42.8 (37-47) % Plt Count 187 (130-400) K/uL BMP 10/26/20 09:31 Sodium 136 Potassium 3.7 Chloride 106 Carbon Dioxide 24 BUN 13 Creatinine 0.83 Glucose 162 H Calcium 8.9 Cardiac Enzymes 10/26/20 Range/Units 09:31 Troponin I < 0.015 (0-0.045) ng/ml Liver Function 10/26/20 Range/Units 09:31 Total Bilirubin 2.1 H (0.2-1) mg/dl AST 457 H (15-37) U/L ALT 262 H (12-78) U/L Alkaline Phosphatase 154 H (45-117) U/L Albumin 3.7 (3.4-5.0) gm/dl Diagnostic Findings CT abdomen and pelvis IMPRESSION: 1. Cholelithiasis with evidence of acute cholecystitis. Surgical consultation is advised. 2. There is no evidence of pulmonary embolus in the main, lobar, or segmental pulmonary arteries. 3. There is no airspace consolidation typical for pneumonia or pleural effusion. 4. Chronic parenchymal and postoperative changes as above suggesting chronic interstitial/inflammatory lung disease. This is similar in appearance to prior studies. 5. Mildly enlarged mediastinal and hilar nodes are nonspecific and likely re lated to chronic lung disease. 6. The endometrium appears thickened for age. This is not well assessed by CT, and nonemergent/outpatient gynecology follow-up and pelvic ultrasound are recommended for further evaluation. 7. Additional findings as above. CTA-negative for pulmonary embolism Medications Administered Current Inpatient Medications Heparin Sodium (Porcine) (Heparin Sod 5,000 Unit/0.5 Ml Vial) 5,000 units SQ Q12 [facility] Stop: 11/25/20 20:59 Potassium Chloride/Sodium Chloride (Normal Saline W/20 Meq Kcl) 20 meq in 1,000 mls @ 125 mls/hr IV .Q8H [facility] Stop: 11/25/20 13:14 Ertapenem 1,000 mg/ Sodium (Chloride) 60 mls @ 100 mls/hr IV Q24H [facility] Stop: 11/05/20 13:14 Code Status & VTE Plan VTE Prophylaxis Plan VTE Prophylaxis will be ordered: Yes
[2020-10-26] MEDS ORDERED: ONDANSETRON INJ 2 MG/ML 2 ML VIAL IV PRN (13:31)
--- NOTE | 2020-10-26 13:50 | Surgery Consultation ---
Date of Consultation October 26, 2020 Assessment & Plan (1) Acute calculous cholecystitis: pt is a 75 year-old female who presents to Er with 3 days history abdominal pain with nausea and vomiting, IMP: acute cholecystitis with cholelithiasis, cholangitis, CBD stone? plan, I agree with that hospitalist will admit pt to hospital with their treatment plan, NPO, IV fluid, Iv antibiotic, control pain, repeat labs in morning, MRCP, consult GI, may need ERCP, plan to do laparoscopic cholecys tectomy on 10/28/2020, pt and her family members agree with the plan, I answered all questions, D/W ER attending. will F/U, Present on Admission?: Yes History of Present Illness Reason for Consultation: acute cholecystitis Requesting Physician: Andria Justin History of Present Illness History of Present Illness Chief Complaint: Abdominal pain with nausea vomiting since Monday evening Primary Care Provider: Alan Borrero MD She is a 75-year-old female with significant past medical history of interstitial lung disease with obstructive sleep apnea on 2 L of oxygen at night, hypertension, hyperlipidemia, hypothyroidism and glaucoma apparently has been complaining of upper abdominal pain with nausea and vomiting since Monday evening. The pain is associated with fever and chills. She denies any chest pain and/or shortness of breath, any diarrhea associated with it. She also complains to have loss of appetite for the last few days but denies any history of bloating of the abdomen after food. She was noted to have cholelithiasis with acute cholecystitis and possible choledocholithiasis in the emergency room and was admitted to the hospital for continuation of care. I ( Vernno Del Castillo mD ) got a call for consult acute cholecystitis, I reviewed pt's H/P, labs, CT scan with pt and her and daughter, Allergies Allergy/AdvReac Type Severity Reaction Status Date / Time Penicillins Allergy Intermediate FACIAL Verified 10/26/20 08:56 SWELLING povidone-iodine AdvReac Mild SWELLING Verified 10/26/20 08:56 BURNING EYE WITH INJECTION AROUND EYE Home Medications Medication Instructions Recorded Confirmed Type amlodipine 5 mg tablet 5 mg PO QAM 12/19/17 10/26/20 History atorvastatin 10 mg tablet (Lipitor) 10 mg PO QPM 12/19/17 10/26/20 History calcium carbonate 600 mg calcium 600 mg PO BID 12/19/17 10/26/20 History (1,500 mg) tablet (Calcium) levothyroxine 25 mcg capsule 25 mcg PO QAM 12/19/17 10/26/20 History travoprost 0.004 % eye drops 1 drp OPHTHALMIC (EYE) HS 12/19/17 10/26/20 History (Travatan Z) citalopram 10 mg tablet (Celexa) 10 mg PO DAILY #30 tab 12/17/18 10/26/20 Rx Flutter Valve #1 ea 04/03/20 10/26/20 Rx mycophenolate mofetil 500 mg tablet 500 mg PO QID tab 04/03/20 10/26/20 History melatonin 3 mg capsule 3 mg PO DAILY PRN cap 05/14/20 10/26/20 History aspirin 81 mg tablet,delayed 81 mg PO QAM 10/26/20 10/26/20 History release (Aspirin Low Dose) Past Med/Surg History Medical History (Updated 10/26/20 @ 13:25 by Mauro Deshpande MD) Antisynthetase syndrome Difficulty falling asleep at night until upscale security officer hours GERD (gastroesophageal reflux disease) Glaucoma Hyperlipidemia Hypertension Hypothyroidism Interstitial lung disease Left lower lobe pulmonary nodule Nocturnal hypoxia Obstructive sleep apnea syndrome Obstructive sleep apnea syndrome On home oxygen therapy 2L/MIN NC HS SOB (shortness of breath) on exertion Surgical History History of bilateral tubal ligation History of breast biopsy RIGHT-BENIGN History of cataract surgery R/L Social History Smoking Status: Never smoker Second Hand Exposure: No (IN THE PAST); Hx Alcohol Use: No Hx Substance Use: No Preferred Language: Algerian Communication Ability: Effective Visual Impairment: No Limitations Tile Mason Required: No Beliefs That Will Affect Care: None Current Living Situation: Spouse Feels Safe at Home: Yes Assistive Devices: Glasses and Walker Review of Systems Review of Systems: All systems reviewed & are unremarkable except as noted in HPI & below Allergies Allergy/AdvReac Type Severity Reaction Status Date / Time Penicillins Allergy Intermediate FACIAL Verified 10/26/20 08:56 SWELLING povidone-iodine AdvReac Mild SWELLING Verified 10/26/20 08:56 BURNING EYE WITH INJECTION AROUND EYE Home Medications Medication Instructions Recorded Confirmed Type amlodipine 5 mg tablet 5 mg PO QAM 12/19/17 10/26/20 History atorvastatin 10 mg tablet (Lipitor) 10 mg PO QPM 12/19/17 10/26/20 History calcium carbonate 600 mg calcium 600 mg PO BID 12/19/17 10/26/20 History (1,500 mg) tablet (Calcium) levothyroxine 25 mcg capsule 25 mcg PO QAM 12/19/17 10/26/20 History travoprost 0.004 % eye drops 1 drp OPHTHALMIC (EYE) HS 12/19/17 10/26/20 History (Travatan Z) citalopram 10 mg tablet (Celexa) 10 mg PO DAILY #30 tab 12/17/18 10/26/20 Rx Flutter Valve #1 ea 04/03/20 10/26/20 Rx mycophenolate mofetil 500 mg tablet 500 mg PO QID tab 04/03/20 10/26/20 History melatonin 3 mg capsule 3 mg PO DAILY PRN cap 05/14/20 10/26/20 History aspirin 81 mg tablet,delayed 81 mg PO QAM 10/26/20 10/26/20 History release (Aspirin Low Dose) Patient History Medical History (Updated 10/26/20 @ 13:25 by Mauro Deshpande MD) Antisynthetase syndrome Difficulty falling asleep at night until upscale security officer hours GERD (gastroesophageal reflux disease) Glaucoma Hyperlipidemia Hypertension Hypothyroidism Interstitial lung disease Left lower lobe pulmonary nodule Nocturnal hypoxia Obstructive sleep apnea syndrome Obstructive sleep apnea syndrome On home oxygen therapy 2L/MIN NC HS SOB (shortness of breath) on exertion Surgical History History of bilateral tubal ligation History of breast biopsy RIGHT-BENIGN History of cataract surgery R/L Social History Smoking Status: Never smoker Second Hand Exposure: No (IN THE PAST); Hx Alcohol Use: No Hx Substance Use: No Preferred Language: Algerian Communication Ability: Effective Visual Impairment: No Limitations Tile Mason Required: No Beliefs That Will Affect Care: None Current Living Situation: Spouse Feels Safe at Home: Yes Assistive Devices: Glasses and Walker Physical Exam Constitutional: WD/WN, vitals as above Eyes: PERRL, conjunctivae normal, anicteric sclerae Neck: trachea midline, no thyromegaly Respiratory: normal respiratory effort, lungs clear to auscultation Cardiovascular: RRR, no murmur, no edema Gastrointestinal (Abdomen): normal bowel sounds, soft, nontender, no hepatosp lenomegaly soft, NT, ND, BS +, Musculoskeletal: no cyanosis or clubbing, extremities motor strength 5/5 Neurologic: patellar DTR's 2+ bilat, sensation intact Psychiatric: A+Ox3, euthymic affect Results & Data ([facility]) Vital Signs (Past 12 Hours) Vital Signs Temp Pulse Pulse Resp BP BP Pulse Ox 10/26/20 12:01 98 H 22 137/96 97 10/26/20 12:00 37.3 C 10/26/20 11:43 92 H 22 172/80 H 98 10/26/20 11:30 98 H 29 H 172/80 H 98 10/26/20 11:00 101 H 17 156/71 H 97 10/26/20 10:00 115 H 33 H 152/83 H 92 10/26/20 09:32 120 H 37 H 174/72 H 98 10/26/20 08:57 38.3 C H 118 H 22 216/95 H 87 L 10/26/20 08:55 114 H 32 H 216/95 H 98 Laboratory Results Abnormal lab results 10/26/20 10/26/20 Range/Units 09:31 09:31 WBC 13.23 H (4.8-10.8) K/uL Neut # (Auto) 12.33 H (1.4-6.5) K/uL Lymph # (Auto) 0.36 L (1.2-3.4) K/uL Immature Gran # (Auto) 0.04 H (0.00-0.02) K/uL Glucose 162 H (70-99) mg/dl Total Bilirubin 2.1 H (0.2-1) mg/dl AST 457 H (15-37) U/L ALT 262 H (12-78) U/L Alkaline Phosphatase 154 H (45-117) U/L Diagnostic Findings CT ANGIOGRAM OF THE CHEST; CT SCAN OF THE ABDOMEN AND PELVIS WITH IV CONTRAST CLINICAL HISTORY: Atypical chest pain. Sepsis. Generalized abdominal pain. COMPARISON STUDY: Chest CT scans dated 04/01/2020 and 09/08/2017. Chest x-ray dated 10/26/2020. TECHNIQUE: Following the IV administration of 120 of Optiray 320, CT angiogram of the chest is performed from the upper abdomen to the thoracic inlet utilizing the pulmonary embolus protocol. Images are reviewed in the axial, sagittal, coronal planes. 3-D MIPS images are created and assessed. Subsequently, CT scan of the abdomen and pelvis was performed from the lung bases to the proximal femora. Images are reviewed in the axial, sagittal, and coronal planes. IV contrast was administered without complication. A dose lowering technique was utilized adhering to the principles of ALARA. CT DOSE: 1330.34 mGy.cm FINDINGS: CHEST: Thyroid: Imaged portions of the thyroid gland are normal in size and attenuation. Thoracic aorta: There is mild atherosclerotic calcification of the thoracic aorta, which is normal in caliber and demonstrates standard 3-vessel arch anatomy. No dissection is seen. Pulmonary vasculature: The pulmonary trunk is normal in caliber. There are no filling defects identified in the main, lobar, or segmental pulmonary arteries to indicate pulmonary embolus. Heart: The heart is normal in size and without pericardial effusion. There are coronary artery calcifications. Lungs and pleural spaces: Postoperative change is seen in the right upper and right middle lobes. There is no airspace consolidation typical for pneumonia or pleural effusion. Groundglass opacities with subpleural reticulation and foci of architectural distortion are again seen throughout both lungs. Mild traction bronchiectasis is seen in the lower lobes, this is consistent with chronic lung disease. The trachea and central airways are clear. Scattered foci of air trapping are seen throughout both lungs. Mediastinum: A mildly enlarged precarinal node measures 14 mm in short axis. Magy: Prominent hilar nodes measure up to 10 mm in short axis. Axillae: There is no axillary lymphadenopathy. Bony thorax: The skeletal structures are osteopenic. No lytic or blastic lesions are identified. ABDOMEN AND PELVIS: Liver: The contrast-enhanced liver is normal in size, contour, and attenuation. There is no intrahepatic or ductal dilatation. The hepatic veins and portal veins are patent. Gallbladder: There are several calcified gallstones which measure up to 2.1 cm. The gallbladder is distended. The gallbladder wall is thickened and edematous with mucosal hyperemia, and there is mild pericholecystic stranding. Findings are typical for acute cholecystitis. Spleen: Normal in size and attenuation. Pancreas: Unremarkable. Adrenal glands: A 12 mm right adrenal adenoma is unchanged. The left adrenal gland is normal as imaged. Kidneys: The contrast enhanced kidneys are normal in size and without hydronephrosis. Numerous renal sinus cysts are seen bilaterally. Scattered subcentimeter cortical hypodensities likely represent cysts but are too small for definitive characterization. The kidneys enhance symmetrically. Abdominal vasculature: The abdominal aorta is normal in course and caliber noting moderate atherosclerotic calcification. Stomach and bowel: There is a small hiatal hernia there is no bowel obstruction. A duodenal diverticulum is incidentally noted. The appendix is well-visualized and normal. Peritoneum: There is no intraperitoneal free air or abdominal ascites. Lymphadenopathy: None. Pelvic viscera: The bladder is normal as imaged. The endometrium appears thickened for age measuring up to 11 mm. No adnexal lesion is seen. Skeletal structures: The skeletal structures are osteopenic. There is mild lumbosacral spondylosis. Sclerotic change is noted in the sacroiliac joints and pubic symphysis. No lytic or blastic lesions are seen. Soft tissues: A 1.8 cm sebaceous cyst is noted in the left lower back on image #160. IMPRESSION: 1. Cholelithiasis with evidence of acute cholecystitis. Surgical consultation is advised. 2. There is no evidence of pulmonary embolus in the main, lobar, or segmental pulmonary arteries. 3. There is no airspace consolidation typical for pneumonia or pleural effusion. 4. Chronic parenchymal and postoperative changes as above suggesting chronic interstitial/inflammatory lung disease. This is similar in appearance to prior studies. 5. Mildly enlarged mediastinal and hilar nodes are nonspecific and likely related to chronic lung disease. 6. The endometrium appears thickened for age. This is not well assessed by CT, and nonemergent/outpatient gynecology follow-up and pelvic ultrasound are recommended for further evaluation. 7. Additional findings as above.
[2020-10-26] MEDS ORDERED: LORazepam 0.25 MG/0.5 ML VIAL IV STA (14:57)
[2020-10-26] MEDS: NSS + 20MEQ KCL 20 MEQ/1,000 ML BAG IV SCH ×2 (16:53→21:18)
--- NOTE | 2020-10-26 17:11 | Magnetic Resonance Report ---
MRCP CLINICAL HISTORY: Elevated hepatic transaminases. Cholecystitis. COMPARISON STUDY: Abdominal CT performed the same day 10/26/2020. TECHNIQUE: Abdominal MRCP is performed utilizing various T2-weighted sequences in the axial and coron al planes. 3-D reformats were created and assessed. IV contrast was not administered for this examina tion. The Examination is modestly degraded by motion artifact. FINDINGS: The gallbladder is distended and contains gallstones. A large stone in the region of the gallbladder neck measures up to 2 cm. The gallbladder wall is thickened and edematous, and there is mild perichol ecystic stranding. Findings are consistent with acute cholecystitis. There is no intra or extrahepati c biliary ductal dilatation. The common bile duct measures up to 4 mm in diameter. No intraluminal fi lling defects identified to suggest choledocholithiasis. The pancreatic duct is normal in caliber. The unenhanced pancreas, spleen, adrenal glands, and liver are grossly normal. The kidneys demonstrat e mild cortical atrophy. Cortical and renal sinus cysts are seen bilaterally. The abdominal aorta is normal in caliber. There is no bowel obstruction. No abdominal ascites is seen. There is no pleural e ffusion. The bony structures are intact as imaged. A sebaceous cyst is incidentally noted in the left lower back. There is a small hiatal hernia. IMPRESSION: 1. Cholelithiasis and acute cholecystitis. 2. Otherwise normal MRCP. There is no evidence of choledocholithiasis. Electronically signed by: Hayden Swan M.D. 10/26/2020 5:10 PM
[2020-10-26] MEDS: CALCIUM CARBONATE 1250MG TAB PO SCH (17:26)
[2020-10-26] MEDS: TRAVOPROST Z 0.004% OPH SOLN 2.5 ML BTL OP SCH (21:18)
[2020-10-26] MEDS: HEPARIN SOD 5,000 UNIT/0.5 ML VIAL SQ SCH (21:19)
[2020-10-26] MEDS: ATORVASTATIN 10 MG TAB PO SCH (21:19)
[2020-10-27] MEDS: MELATONIN 3 MG TAB PO PRN ×2 (00:28→20:41)
[2020-10-27] MEDS: NSS + 20MEQ KCL 20 MEQ/1,000 ML BAG IV SCH ×2 (05:30→16:29)
[2020-10-27] MEDS: LEVOTHYROXINE SODIUM 25 MCG TABLET PO SCH (06:19)
[2020-10-27 07:31] LABS: Appearance Urine Clear (Clear); Bacteria Urine Automated Negative (Negative); Bilirubin Urine Negative (Negative); Blood Urine Negative (Negative); Cast Urine Automated 0 /lpf (0-5); Color Urine Yellow; Epithelial Cell Urine Auto 20-30 /lpf (0-5); Glucose Urine UA Negative (Negative); Ketones Urine 1+ (Negative); Leukocyte Esterase Urine Trace (Negative); Nitrite Urine Negative (Negative); Protein Urine Negative (Negative); RBC Urine Automated 0-4 /hpf (0-4); Specific Gravity Urine 1.014 (1.000-1.030); Urobilinogen Urine Negative (Negative)
[2020-10-27 07:52] LABS: Basophils # (auto) 0.03 K/uL (0-0.2); Basophils % (auto) 0.3 %; Eosinophils # (auto) 0.19 K/uL (0-0.5); Eosinophils % (auto) 1.7 %; Hematocrit (blood only) 35.7 % (37-47); Hemoglobin 11.2 g/dL (12.0-16.0); Immature Granulocytes # (auto) 0.02 K/uL (0.00-0.02); Immature Granulocytes % (auto) 0.2 %; Lymphocytes # (auto) 1.17 K/uL (1.2-3.4); Lymphocytes % (auto) 10.3 %; Mean Corpuscular Hemoglobin 27.5 pg (25-34); Mean Corpuscular Hgb Conc 31.4 g/dL (32-36); Mean Corpuscular Volume 87.5 fL (80-100); Monocytes # (auto) 0.99 K/uL (0.11-0.59); Monocytes % (auto) 8.7 %; Neutrophils # (auto) 8.96 K/uL (1.4-6.5); Neutrophils % (auto) 78.8 %; Platelet Count 235 K/uL (130-400); RDW Coefficient of Variation 13.7 % (11.5-14.5); RDW Standard Deviation 43.9 fL (36.4-46.3); Red Blood Count 4.08 M/uL (4.2-5.4); White Blood Count 11.36 K/uL (4.8-10.8)
--- NOTE | 2020-10-27 08:09 | Electrocardiogram Report ---
Test Reason : Blood Pressure : / mmHG Vent. Rate : 116 BPM Atrial Rate : 116 BPM P-R Int : 162 ms QRS Dur : 078 ms QT Int : 300 ms P-R-T Axes : 049 029 049 degrees QTc Int : 417 ms Sinus tachycardia Left atrial enlargement Borderline ECG When compared with ECG of 14-DEC-2017 11:52, No significant change was found Confirmed by Onur Perez ([id number]) on 10/27/2020 8:09:35 AM Referred By: REFERRED SELF Confirmed By:Onur Perez
[2020-10-27 08:24] LABS: Albumin Level 2.6 gm/dl (3.4-5.0); BUN Creatinine Ratio 15.3 (10-20); Calcium 8.1 mg/dl (8.5-10.1); Creatinine Clr Calc Pharmacy 89.9 ml/min; Est GFR (African American) 104.2 ml/min; Est GFR (Non-African American) 89.9 ml/min; Potassium 3.7 mmol/L (3.5-5.1)
[2020-10-27 08:38] LABS: Albumin Globulin Ratio 0.8 (0.9-2); Bilirubin,Total 0.7 mg/dl (0.2-1); Globulin 3.4 gm/dl (2.5-4.0)
[2020-10-27] MEDS: amLODIPine BESYLATE 5 MG TAB PO SCH (09:00)
[2020-10-27] MEDS: CALCIUM CARBONATE 1250MG TAB PO SCH ×2 (09:05→17:04)
[2020-10-27] MEDS: CITALOPRAM 20 MG TAB PO SCH (09:07)
[2020-10-27] MEDS: HEPARIN SOD 5,000 UNIT/0.5 ML VIAL SQ SCH (09:07)
[2020-10-27] MEDS: ASPIRIN 81 MG ECTAB PO SCH (09:07)
--- NOTE | 2020-10-27 09:52 | Gastrointestinal Consultation ---
Date of Consultation October 27, 2020 Assessment & Plan (1) Choledocholithiasis: Her clinical presentation of biliary colic with elevated white count, elevated LFTs, chills nausea and vomiting with cholelithiasis and cholecystitis on imaging is very suggestive of choledocholithiasis with possible cholangitis. Agree with antibiotic coverage with ertapenem. Please keep n.p.o. Hold this morning's subcutaneous heparin dose, and this morning's low-dose aspirin. ERCP today by Dr. Hansen. This procedure was described in detail including risks of infection perforation or bleeding. Patient would like to go forward with the procedure. Appreciate surgical opinion and plan for cholecystectomy to follow (plan for tomorrow). We will continue to follow patient Supervising Physician Co-Signing Physician Notes I saw and evaluated the patient. She presented with several days of intermittent abdominal discomfort worsening on Monday evening. She did have significant elevation of her labs and a leukocytosis at the initial portion of her presentation suggestive of cholangitis. ERCP has been requested by the surgical service as part of preoperative evaluation. The patient does admit that she has persistent discomfort today therefore we will proceed with ERCP. We have discussed the risks of the procedure to include bleeding, infection, perforation, pancreatitis and need for repeat studies. Physical examination Right upper quadrant tender to palpation No peritoneal signs Impression: Patient with cholelithiasis seen on imaging and labs suggestive of choledocholithiasis. ERCP planned for today for further treatment in preparation for cholecystectomy later during her hospitalization. I did consent the patient for endoscopic ultrasound should there be difficulty with the ERCP this morning. Plan ERCP today perioperative Indocin to be given History of Present Illness Reason for Consultation: Cholecystitis with choledocolithiasis Attending Physician: Mauro Deshpande MD History of Present Illness Ms. Aidee Montilla is a 75-year-old female patient of Dr. Borrero with a history of interstitial lung disease, hypertension, hyperlipidemia, COPD on 2 L O2 at night who presented to the emergency department yesterday after she had experienced upper abdomen pain nausea and vomiting on Monday night which persisted a few hours. Then on Monday she felt much better however late on Monday she began again with chills and at that time mild abdominal pain. On arrival, total bilirubin was elevated to 2.1 (today 0.7), AST 457 (139), ALT 262 (149), alkaline phosphatase 154 (103). Imaging is suggestive of acute cholecystitis with cholelithiasis. Today she is pain-free" feels much better on ertapenem. White count was initially mildly elevated at 13 and today is 11. Allergies Allergy/AdvReac Type Severity Reaction Status Date / Time Penicillins Allergy Intermediate FACIAL Verified 10/26/20 08:56 SWELLING povidone-iodine AdvReac Mild SWELLING Verified 10/26/20 08:56 BURNING EYE WITH INJECTION AROUND EYE Home Medications Medication Instructions Recorded Confirmed Type amlodipine 5 mg tablet 5 mg PO QAM 12/19/17 10/26/20 History atorvastatin 10 mg tablet (Lipitor) 10 mg PO QPM 12/19/17 10/26/20 History calcium carbonate 600 mg calcium 600 mg PO BID 12/19/17 10/26/20 History (1,500 mg) tablet (Calcium) levothyroxine 25 mcg capsule 25 mcg PO QAM 12/19/17 10/26/20 History travoprost 0.004 % eye drops 1 drp OPHTHALMIC (EYE) HS 12/19/17 10/26/20 History (Travatan Z) citalopram 10 mg tablet (Celexa) 10 mg PO DAILY #30 tab 12/17/18 10/26/20 Rx Flutter Valve #1 ea 04/03/20 10/26/20 Rx mycophenolate mofetil 500 mg tablet 500 mg PO BID tab 04/03/20 10/26/20 History melatonin 3 mg capsule 3 mg PO DAILY PRN cap 05/14/20 10/26/20 History aspirin 81 mg tablet,delayed 81 mg PO QAM 10/26/20 10/26/20 History release (Aspirin Low Dose) Patient History Medical History Antisynthetase syndrome 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 GERD (gastroesophageal reflux disease) Glaucoma Hyperlipidemia Hypertension Hypothyroidism Interstitial lung disease Left lower lobe pulmonary nodule Nocturnal hypoxia Obstructive sleep apnea syndrome Obstructive sleep apnea syndrome On home oxygen therapy 2L/MIN NC HS SOB (shortness of breath) on exertion Surgical History History of bilateral tubal ligation History of breast biopsy RIGHT-BENIGN History of cataract surgery R/L Social History Smoking Status: Never smoker Second Hand Exposure: No; Do You Dip or Chew Tobacco: No; Tobacco Cessation Education Requested by Patient: No Hx Alcohol Use: No Hx Substance Use: No Preferred Language: Setswana Communication Ability: Effective Visual Impairment: No Limitations Hammer Repairer Required: No Beliefs That Will Affect Care: None Current Living Situation: Spouse Other Information That Helps Us Care for You: No Feels Safe at Home: Yes Safety Concerns: Feels Safe At This Time Assistive Devices: Glasses and Oxygen - at Night Review of Systems Constitutional: + fever, + chills and + body aches Eyes: no problem reported Ear, Nose, Mouth, Throat: no problem reported Respiratory: + cough (Mild, chronic, no recent worsening) and + dyspnea on exertion (Mild, chronic, no recent worsening) Cardiovascular: no chest pain, no syncope and no edema Gastrointestinal: as per Subjective / HPI Genitourinary: no problem reported Musculoskeletal: no problem reported Integumentary: no rash, no pruritus and no yellowing of the skin Neurologic: no falls, no numbness, no confusion and no memory loss Psychiatric: no problem reported Endocrine: no problem reported Hematologic / Lymphatic: no easy bleeding, no easy bruising and no lymphadenopathy Physical Exam Constitutional: WD/WN, vitals as above Eyes: PERRL, conjunctivae normal, anicteric sclerae ENMT: external ear and nose normal, oropharynx normal Neck: trachea midline, no thyromegaly Respiratory: normal respiratory effort, lungs clear to auscultation Cardiovascular: Rate/Rhythm: regular rate and regular rhythm Heart Sounds: + murmur (2/6 systolic, patient reports has had this for many years and that echo did) Gastrointestinal (Abdomen): normal bowel sounds, soft, nontender, no hepatosplenomegaly Musculoskeletal: no cyanosis or clubbing, extremities motor strength 5/5 Skin: no rashes, warm and dry Neurologic: PERRL, EOMI, accommodation nl, no face palsy, no dysarthria Psychiatric: A+Ox3, euthymic affect Lymphatic: no cervical or axillary lymphadenopathy Results & Data ([facility]) Vital Signs (Past 12 Hours) Vital Signs Temp Pulse Pulse Resp BP Pulse Ox 10/27/20 07:33 83 10/27/20 07:31 83 10/27/20 07:01 36.9 C 76 18 135/61 91 10/27/20 03:03 37.1 C 78 18 132/80 97 10/26/20 23:59 84 10/26/20 23:09 37.4 C 82 18 143/78 H 93 Laboratory Results WBC 11.3, Hb 11.2, HCT 35.7, platelets 235, NA 142, K3.7, CL 112, CO2 24, BUN 9, CR 0.61, glucose 95. See HPI for LFTs. COVID PCR (-) Diagnostic Findings CTAP w IV contrast 10/26/20: 1. Cholelithiasis with evidence of acute cholecystitis. Surgical consultation is advised. 2. There is no evidence of pulmonary embolus in the main, lobar, or segmental pulmonary arteries. 3. There is no airspace consolidation typical for pneumonia or pleural effusion. 4. Chronic parenchymal and postoperative changes as above suggesting chronic interstitial/inflammatory lung disease. This is similar in appearance to prior studies. 5. Mildly enlarged mediastinal and hilar nodes are nonspecific and likely related to chronic lung disease. 6. The endometrium appears thickened for age. This is not well assessed by CT, and nonemergent/outpatient gynecology follow-up and pelvic ultrasound are recommended for further evaluation. 7. Additional findings as above. MRCP 10/26/20: 1. Cholelithiasis and acute cholecystitis. 2. Otherwise normal MRCP. There is no evidence of choledocholithiasis. Medications Administered Receiving ertapenem IV daily
[2020-10-27] MEDS: ERTAPENEM SODIUM 1,000 MG in SODIUM CHLORIDE 0.9% 50 ML IV SCH (09:58)
[2020-10-27] MEDS ORDERED: ePHEDrine sulfate 50 MG/ML AMP IV PRN (10:21)
[2020-10-27] MEDS ORDERED: HYDROmorphone INJ 1 MG/ML SYRINGE IV PRN (10:21)
[2020-10-27] MEDS ORDERED: ONDANSETRON INJ 2 MG/ML 2 ML VIAL IV PRN (10:21)
[2020-10-27] MEDS ORDERED: ATROPINE SULFATE 0.1 MG/ML 10ML SYR IV PRN (10:21)
[2020-10-27] MEDS ORDERED: fentaNYL citrate 100 MCG/2 ML VIAL IV PRN (10:21)
--- NOTE | 2020-10-27 10:28 | Anesthesiology Consultation ---
Date of Service October 27, 2020 Assessment & Plan (1) Encounter for pre-operative examination: Chart Review Chart Review: Acceptable Risk for Surgery and Patient NOT seen in Pre Admission Testing covid neg 10/26/20 Consults Requested none History Surgery Operation Date: 10/27/20 08:20 Proposed Procedures p Endoscopic Retrograde Cholangiopancreatogram - Lazarus Hansen DO Operation Date: 10/28/20 09:30 Proposed Procedures p Laparoscopic Cholecystectomy - Vernon Del Castillo MD Height/Weight Height: 5 ft 4 in Weight: 91.2 kg Allergies Allergy/AdvReac Type Severity Reaction Status Date / Time Penicillins Allergy Intermediate FACIAL Verified 10/26/20 08:56 SWELLING povidone-iodine AdvReac Mild SWELLING Verified 10/26/20 08:56 BURNING EYE WITH INJECTION AROUND EYE Medications Home Medications Medication Instructions Recorded Confirmed Last Taken amlodipine 5 mg tablet 5 mg PO QAM 12/19/17 10/26/20 12/22/17 06:00 atorvastatin 10 mg tablet (Lipitor) 10 mg PO QPM 12/19/17 10/26/20 12/21/17 19:00 calcium carbonate 600 mg calcium 600 mg PO BID 12/19/17 10/26/20 12/21/17 08:00 (1,500 mg) tablet (Calcium) levothyroxine 25 mcg capsule 25 mcg PO QAM 12/19/17 10/26/20 12/22/17 02:00 travoprost 0.004 % eye drops 1 drp OPHTHALMIC (EYE) HS 12/19/17 10/26/20 12/21/17 23:55 (Travatan Z) citalopram 10 mg tablet (Celexa) 10 mg PO DAILY #30 tab 12/17/18 10/26/20 Unknown Flutter Valve #1 ea 04/03/20 10/26/20 Unknown mycophenolate mofetil 500 mg tablet 500 mg PO BID tab 04/03/20 10/26/20 Unknown melatonin 3 mg capsule 3 mg PO DAILY PRN cap 05/14/20 10/26/20 Unknown aspirin 81 mg tablet,delayed 81 mg PO QAM 10/26/20 10/26/20 Unknown release (Aspirin Low Dose) Active Medications Generic Name Dose Route Start Last Admin Trade Name Freq PRN Reason Stop Dose Admin Amlodipine Besylate 5 mg 10/27/20 09:00 10/27/20 09:00 Amlodipine Besylate 5 Mg Tab PO 11/26/20 08:59 5 mg QAM ROCHELLE Administration Aspirin 81 mg 10/27/20 09:00 10/27/20 09:07 Aspirin 81 Mg Ectab PO 11/26/20 08:59 Not Given QAM ROCHELLE Atorvastatin Calcium 10 mg 10/26/20 21:00 10/26/20 21:19 Atorvastatin 10 Mg Tab PO 11/25/20 20:59 10 mg QPM ROCHELLE Administration Calcium Carbonate 1,250 mg 10/26/20 17:00 10/27/20 09:05 Calcium Carbonate 1250mg Tab PO 11/25/20 16:59 Not Given BIDM ROCHELLE Citalopram Hydrobromide 10 mg 10/27/20 09:00 10/27/20 09:07 Citalopram 20 Mg Tab PO 11/26/20 08:59 Not Given DAILY ROCHELLE Heparin Sodium (Porcine) 5,000 units 10/26/20 21:00 10/27/20 09:07 Heparin Sod 5,000 Unit/0.5 Ml Vial SQ 11/25/20 20:59 Not Given Q12 ROCHELLE Potassium Chloride/Sodium Chloride 20 meq in 1,000 mls @ 125 mls/hr 10/26/20 13:15 10/27/20 05:30 Normal Saline W/20 Meq Kcl IV 11/25/20 13:14 125 mls/hr .Q8H ROCHELLE Administration Ertapenem 1,000 mg/ Sodium 60 mls @ 100 mls/hr 10/27/20 10:00 10/27/20 09:58 Chloride IV 11/05/20 09:59 100 mls/hr Q24H ROCHELLE Administration Levothyroxine Sodium 25 mcg 10/27/20 06:30 10/27/20 06:19 Levothyroxine Sodium 25 Mcg Tablet PO 11/26/20 06:29 25 mcg DAILYBB ROCHELLE Administration Melatonin 3 mg 10/26/20 14:58 10/27/20 00:28 Melatonin 3 Mg Tab PO 11/25/20 14:57 3 mg HSZ PRN Administration Sleep Travoprost 1 drops 10/26/20 21:00 10/26/20 21:18 Travoprost Z 0.004% Oph Soln 2.5 Ml Btl OP 11/25/20 20:59 1 drops HS ROCHELLE Administration Past Medical History Medical History Antisynthetase syndrome Difficulty falling asleep at night until otm consultant hours GERD (gastroesophageal reflux disease) Glaucoma Hyperlipidemia Hypertension Hypothyroidism Interstitial lung disease Left lower lobe pulmonary nodule Nocturnal hypoxia Obstructive sleep apnea syndrome Obstructive sleep apnea syndrome On home oxygen therapy 2L/MIN NC HS SOB (shortness of breath) on exertion Past Surgical History Surgical History History of bilateral tubal ligation History of breast biopsy RIGHT-BENIGN History of cataract surgery R/L Right VATS with lung biopsy 2017. MAC 3. Grade 1 view. ETT placed without apparent difficulty. Social History Smoking Status: Never smoker Do You Dip or Chew Tobacco: No Hx Alcohol Use: No alcohol intake frequency: 0-2 drinks per day Hx Substance Use: No substance use type: does not use Physical Exam Vital Signs Last Vital Signs Temp 37 C 10/27/20 10:44 Pulse 86 10/27/20 10:44 Resp 18 10/27/20 10:44 BP 165/82 H 10/27/20 10:44 Pulse Ox 92 10/27/20 10:44 Testing Laboratory Results 10/27/20 07:36 10/27/20 07:36 PT 9.8 Seconds (9.0-12.0) 10/26/20 10:13 INR 1.0 (0.9-1.1) 10/26/20 10:13 APTT 22.5 Seconds (21.0-31.0) 10/26/20 10:13 Urine Color Yellow 10/27/20 06:00 Urine Appearance Clear (Clear) 10/27/20 06:00 Urine pH 6.0 (4.5-7.5) 10/27/20 06:00 Ur Specific [place] 1.014 (1.000-1.030) 10/27/20 06:00 Urine Protein Negative (Negative) 10/27/20 06:00 Urine Glucose (UA) Negative (Negative) 10/27/20 06:00 Urine Ketones 1+ (Negative) H 10/27/20 06:00 Urine Nitrite Negative (Negative) 10/27/20 06:00 Ur Leukocyte Esterase Trace (Negative) H 10/27/20 06:00 Urine WBC (Auto) 5-10 /hpf (0-5) H 10/27/20 06:00 Urine RBC (Auto) 0-4 /hpf (0-4) 10/27/20 06:00 U Hyaline Cast (Auto) 0 /lpf (0-5) 10/27/20 06:00 U Epithel Cells (Auto) 20-30 /lpf (0-5) H 10/27/20 06:00 Urine Bacteria (Auto) Negative (Negative) 10/27/20 06:00 10/26/20 09:31 Aerobic Blood Culture - Preliminary Blood Gram negative bacilli Anaerobic Blood Culture - Preliminary Gram negative bacilli 10/26/20 09:31 Aerobic Blood Culture - Preliminary Blood Gram negative bacilli Anaerobic Blood Culture - Preliminary Gram negative bacilli Electrocardiogram Date: 10/26/20 DICTATED BY: Onur Perez MD Test Reason : Blood Pressure : / mmHG Vent. Rate : 116 BPM Atrial Rate : 116 BPM P-R Int : 162 ms QRS Dur : 078 ms QT Int : 300 ms P-R-T Axes : 049 029 049 degrees QTc Int : 417 ms Sinus tachycardia Left atrial enlargement Borderline ECG When compared with ECG of 14-DEC-2017 11:52, No significant change was found Confirmed by Onur Perez ([id number]) on 10/27/2020 8:09:35 AM
--- NOTE | 2020-10-27 10:50 | History & Physical Bridge Note ---
Date of Service October 27, 2020 History & Physical Bridge Note I have examined the patient, reviewed the History & Physical and in the interval since the performance of the History & Physical I have noted the following changes of clinical significance: no changes noted. The patient presented with abdominal pain leukocytosis and significant elevation of her liver associated enzymes. Labs are significantly improved however the patient does note having persistent discomfort. Given the history we are planning to proceed with ERCP today for biliary decompression due to suspected choledocholithiasis and possible cholangitis. I discussed the risks of the procedures with the patient include bleeding, infection, perforation, pancreatitis and need for follow-up studies.
[2020-10-27] MEDS ORDERED: INDOMETHACIN 50 MG SUPP PR SCH (11:00)
[2020-10-27] MEDS ORDERED: PROPOFOL IV EMULSION 10 MG/ML 20 ML VIAL IV ONE (11:01)
[2020-10-27] MEDS ORDERED: SUCCINYLCHOLINE CHLORIDE 20 MG/ML 10 ML VIAL IV ONE (11:01)
[2020-10-27] MEDS ORDERED: LIDOCAINE 2% 2 ML VIAL/AMP(20MG/ML) INFIL ONE (11:01)
[2020-10-27] MEDS ORDERED: ONDANSETRON INJ 2 MG/ML 2 ML VIAL ONE (11:01)
[2020-10-27] MEDS ORDERED: fentaNYL citrate 100 MCG/2 ML VIAL ONE (11:02)
--- NOTE | 2020-10-27 11:44 | Post Operative Brief Note ---
Immediate Post Op Note v1 Date of Surgery October 27, 2020 Pre & Post Diagnosis Operation Date: 10/27/20 08:20 Pre-Op Diagnosis cholangitis Post-Op Diagnosis: cholangitis/choledocholithiasis I identified the patient and participated in the time-out.: Yes Procedure Operation Date: 10/27/20 08:20 Actual Procedures p Endoscopic Retrograde Cholangiopancreatogram(Not Applicable) - Lazarus Hansen DO Surgeon Lazarus Hansen DO Hemming And Tacking Machine Operator none Estimated Blood Loss 0 Findings Consistent with Post-Op Diagnosis
--- NOTE | 2020-10-27 11:45 | Communication Note ---
Date of Service: October 27, 2020 The patient underwent ERCP this morning. Findings were notable for evidence of mild cholangitis in addition to a retained common bile duct stone. We performed a biliary sphincterotomy, gallstone extraction and biliary stent placement Recommendations Continue with IV hydration Continue broad-spectrum antibiotic coverage for total of 10 days Cholecystectomy per general surgery Avoid nonsteroidals and anticoagulation for 5 days please May have clear liquids from our perspective today
--- NOTE | 2020-10-27 11:53 | GI REPORT ---
Patient Name: Aidee Montilla Procedure Date: 10/27/2020 11:20 AM Date of : 1945 Admit Type: Inpatient Age: 75 Gender: Female Attending MD: Lazarus Hansen DO Procedure: ERCP Providers: Lazarus Hansen DO Referring MD: Vernon Bess . Md Indications: Abdominal pain of suspected biliary origin, Suspected ascending cholangitis Medicines: General Anesthesia Complications: No immediate complications. Estimated blood loss: Minimal. Estimated Blood Loss: Estimated blood loss was minimal. Procedure: Pre-Anesthesia Assessment: - Prior to the procedure, a History and Physical was performed, and patient medications, allergies and sensitivities were reviewed. The patient's tolerance of previous anesthesia was reviewed. - The risks and benefits of the procedure and the sedation options and risks were discussed with the patient. All questions were answered and informed consent was obtained. - Patient identification and proposed procedure were verified prior to the procedure by the physician, the nurse and the patient care technician instructor. The procedure was verified in the procedure room. - Pre-procedure physical examination revealed no contraindications to sedation. - ASA Grade Assessment: III - A patient with severe systemic disease. - After reviewing the risks and benefits, the patient was deemed in satisfactory condition to undergo the procedure. - The anesthesia plan was to use general anesthesia. - Immediately prior to administration of medications, the patient was re-assessed for adequacy to receive sedatives. - The heart rate, respiratory rate, oxygen saturations, blood pressure, adequacy of pulmonary ventilation, and response to care were monitored throughout the procedure. - The physical status of the patient was re-assessed after the procedure. After obtaining informed consent, the scope was passed under direct vision. Throughout the procedure, the patient's blood pressure, pulse, and oxygen saturations were monitored continuously. The Loaner was introduced through the mouth, and advanced to the duodenum and used to inject contrast into the bile duct. The ERCP was accomplished without difficulty. The patient tolerated the procedure well. Findings: The stone rougher film was normal. The esophagus was successfully intubated under direct vision without detailed examination of the pharynx, larynx, and associated structures, and upper GI tract. The upper GI tract was grossly normal. The major papilla was congested. The bile duct was deeply cannulated with the short-nosed traction sphincterotome and guidewire during the first cannulation attempt (PD not cannulated or injected today). Contrast was injected. I personally interpreted the bile duct images. Contrast extended to the hepatic ducts. The biliary orifice was stenotic. This appeared benign. The lower third of the main bile duct contained filling defect(s) thought to be a stone. The gallbladder contained multiple filling defects thought to be stones. Biliary sphincterotomy was made with a Fusion OMNI sphincterotome using ERBE electrocautery. There was no post-sphincterotomy bleeding. To discover objects, the biliary tree was swept with an 11.5 mm balloon starting at the bifurcation. One stone was removed. No stones remained. A small amount of pus was swept from the duct consistent with the patient's suspected history of cholangitis. One 10 Fr by 7 cm biliary stent with a single external flap and a single internal flap was placed 7 cm into the common bile duct. Bile flowed through the stent. The stent was in good position. The endoscope was withdrawn from the patient. Indomethacin 100 mg was given via suppository to decrease the risk of post-ERCP pancreatitis (PEP). The total fluoroscopy exposure time was 29 seconds. Impression: - The major papilla appeared congested. - Biliary papillary stenosis, benign. - Choledocholithiasis and mild cholangitis was found. Complete removal was accomplished by biliary sphincterotomy and balloon extraction. - One biliary stent was placed into the common bile duct. - Indomethacin given to decrease risk of post-ERCP pancreatitis. Recommendation: - Avoid aspirin and nonsteroidal anti-inflammatory medicines for 1 week. - Clear liquid diet today. - Use broad spectrum antibiotics for 10 days. - Cholecystectomy per General surgery. - Repeat ERCP in 6 weeks to remove stent. Lazarus Hansen D.O. Lazarus Hansen DO 10/27/2020 11:52:42 AM This report has been signed electronically. Note Initiated On: 10/27/2020 11:20 AM Number of Addenda: 0 I attest to the content of the Intraoperative Record and orders documented therein, exceptions below {[id number]}
--- NOTE | 2020-10-27 12:41 | Anesthesiology Progress Note ---
Date of Service October 27, 2020 Anesthesia Post Procedure Vital Signs Vital Signs: Temp Pulse Pulse Pulse Resp BP BP 10/27/20 12:35 74 18 144/72 H 10/27/20 12:25 36.2 C L 78 20 140/64 10/27/20 12:15 87 20 151/67 H 10/27/20 12:05 88 18 154/77 H 10/27/20 11:57 36.0 C L 100 H 22 154/74 H 10/27/20 10:44 37 C 86 18 10/27/20 07:33 83 10/27/20 07:31 83 10/27/20 07:01 36.9 C 76 18 10/27/20 03:03 37.1 C 78 18 10/26/20 23:59 84 10/26/20 23:09 37.4 C 82 18 10/26/20 19:45 37.4 C 90 18 10/26/20 18:02 99 H 10/26/20 15:39 37.4 C 100 H 20 154/73 H 10/26/20 14:00 18 155/85 H BP Pulse Ox 10/27/20 12:35 96 10/27/20 12:25 98 10/27/20 12:15 97 10/27/20 12:05 98 10/27/20 11:57 97 10/27/20 10:44 165/82 H 92 10/27/20 07:33 10/27/20 07:31 10/27/20 07:01 135/61 91 10/27/20 03:03 132/80 97 10/26/20 23:59 10/26/20 23:09 143/78 H 93 10/26/20 19:45 112/68 92 10/26/20 18:02 10/26/20 15:39 94 10/26/20 14:00 99 Transfer of Care Handoff Completed per policy Notes Mental Status: alert / awake / arousable and participated in evaluation Patient Amnestic to Procedure: Yes Nausea / Vomiting: adequately controlled Pain: adequately controlled Airway Patency, RR, SpO2: stable & adequate BP & HR: stable & adequate Hydration State: stable & adequate Anesthetic Complications: no major complications apparent and Pt Satisfied with anesthetic care
--- NOTE | 2020-10-27 14:26 | Fluoroscopy Report ---
INTRAOPERATIVE RADIOGRAPHS CLINICAL HISTORY: ERCP. Duct exploration. Fluoroscopy time: 29 seconds. FINDINGS: 9 spot fluoroscopic views of the right upper quadrant are correlated with abdominal CT and MRCP dated 10/26/2020. A wire is placed within the common bile duct. There is no significant intra or e xtrahepatic biliary ductal dilatation seen following contrast administration. There are no clear fill ing defects within the common duct to indicate choledocholithiasis. A sweep of the common duct is per formed. On the final image a common bile duct stent is in place. IMPRESSION: Intraoperative ERCP images as above. See operative report for detailed findings. Electronically signed by: Hayden Swan M.D. 10/27/2020 2:25 PM
[2020-10-27] MEDS ORDERED: ALBUTEROL HFA 8 GM INHALER INH PRN (16:15)
--- NOTE | 2020-10-27 16:22 | Hospitalist Progress Note ---
Date of Service October 27, 2020 Assessment & Plan (1) Acute calculous cholecystitis: Plan: Sepsis secondary to acute calculus cholecystitis with possible choledocholithiasis Presented with abdominal pain, nausea vomiting and fever Noted to have tachycardia, fever of more than 38 C and white count elevated at 13.23 Lactate was not elevated Blood cultures have been taken and she was started with Intravenous ertapenem and received intravenous fluid Has been feeling a lot better MRCP has been ordered-did not show any choledocholithiasis Appreciate surgery input and recommendation for cholecystectomy tomorrow 10/28/2020 Abnormal liver function test Obstructive feature Secondary to possible choledocholithiasis Appreciate GI input and recommendation Status post ERCP-extraction of choledochal stones and dilation of the sphincter with a stent placement Has acute cholangitis We will continue current antibiotic-for 10 days in total Will need ERCP in 6 weeks to remove stent (2) Abdominal pain: Plan: Due to acute cholecystitis and cholangitis (3) Interstitial lung disease: Plan: Uses 2 L of oxygen at nighttime Noted to be minimally hypoxic and requiring 2 L oxygen now No evidence of pneumonia and or worsening of the ILD We will give albuterol MDI every 6 hourly as needed (4) Obstructive sleep apnea syndrome: Plan: Uses oxygen at nighttime (5) Left lower lobe pulmonary nodule: Plan: Is been followed up in the pulmonary clinic (6) Hypertension: Plan: Patient remains stable (7) Hyperlipidemia: Plan: Continue the medicine if she has been taking (8) Hypothyroidism: Plan: Continue supplement (9) Glaucoma: Plan: Continue current medications DVT prophylaxis Subcu heparin CODE STATUS Full Admission and Anticipated Discharge Date Admission Date: October 26, 2020 Subjective 10/27/2020 The patient was seen and examined in medical telemetry unit She has been remained stable without any pain and/or fever and chills She will be going for ERCP today and laparoscopic cholecystectomy tomorrow Review of Systems Review of Systems: All systems reviewed and are unremarkable except as noted b elow Gastrointestinal: Minimal abdominal pain over right upper quadrant. James sign negative Physical Exam Physical Exam: Lying in bed without any acute discomfort Constitutional: well developed, well nourished and + obese; not ill appearing Eyes: PERRL, conjunctivae normal, anicteric sclerae ENMT: external ear and nose normal, oropharynx normal Neck: trachea midline, no thyromegaly Respiratory: no respiratory distress and no cough Auscultation: + diminished lung sounds and + crackles (Minimal bibasilar crackles) Cardiovascular: Rate/Rhythm: regular rate, regular rhythm and + tachycardic Heart Sounds: normal S1 and normal S2; no murmur Extremities: no edema Gastrointestinal (Abdomen): Inspection/Auscultation: normal bowel sounds; abdomen not distended Percussion/Palpation: abdomen soft; abdomen nontender (Negative James sign) and no hepatosplenomegaly Musculoskeletal: No acute arthritis in any joint Neurologic: Alert, awake and oriented x3 Lymphatic: no cervical or axillary lymphadenopathy Results & Data Results & Data ([facility]) Vital Signs (Past 12 Hours) Vital Signs Temp Pulse Pulse Pulse Resp BP BP 10/27/20 15:53 36.6 C 84 18 159/80 H 10/27/20 15:34 76 10/27/20 15:20 36.6 C 76 18 148/77 H 10/27/20 14:34 36.9 C 78 18 148/73 H 10/27/20 13:50 36.9 C 76 18 144/78 H 10/27/20 13:33 36.6 C 78 18 144/83 H 10/27/20 13:05 37.0 C 80 20 125/79 10/27/20 12:50 37.0 C 79 20 129/78 10/27/20 12:35 74 18 144/72 H 10/27/20 12:25 36.2 C L 78 20 140/64 10/27/20 12:15 87 20 151/67 H 10/27/20 12:05 88 18 154/77 H 10/27/20 11:57 36.0 C L 100 H 22 154/74 H 10/27/20 10:44 37 C 86 18 165/82 H 10/27/20 07:33 83 10/27/20 07:31 83 10/27/20 07:01 36.9 C 76 18 135/61 Pulse Ox 10/27/20 15:53 90 10/27/20 15:34 10/27/20 15:20 95 10/27/20 14:34 97 10/27/20 13:50 97 10/27/20 13:33 95 10/27/20 13:05 97 10/27/20 12:50 79 L 10/27/20 12:35 96 10/27/20 12:25 98 10/27/20 12:15 97 10/27/20 12:05 98 10/27/20 11:57 97 10/27/20 10:44 92 10/27/20 07:33 10/27/20 07:31 10/27/20 07:01 91 Laboratory Results Short CBC 10/27/20 Range/Units 07:36 WBC 11.36 H (4.8-10.8) K/uL Hgb 11.2 L (12.0-16.0) g/dL Hct 35.7 L (37-47) % Plt Count 235 (130-400) K/uL BMP 10/27/20 07:36 Sodium 142 Potassium 3.7 Chloride 112 H Carbon Dioxide 24 BUN 9 Creatinine 0.61 Glucose 95 Calcium 8.1 L Liver Function 10/27/20 Range/Units 07:36 Total Bilirubin 0.7 D (0.2-1) mg/dl AST 139 H (15-37) U/L ALT 149 H (12-78) U/L Alkaline Phosphatase 103 (45-117) U/L Albumin 2.6 L (3.4-5.0) gm/dl Urine 10/27/20 Range/Units 06:00 Urine Color Yellow Urine Appearance Clear (Clear) Urine pH 6.0 (4.5-7.5) Ur Specific [place] 1.014 (1.000-1.030) Urine Protein Negative (Negative) Urine Glucose (UA) Negative (Negative) Medications Administered Current Inpatient Medications Albuterol (Albuterol Hfa 8 Gm Inhaler) 2 puffs INH Q6H PRN PRN Reason: Shortness Of Breath Stop: 11/26/20 16:14 Amlodipine Besylate (Amlodipine Besylate 5 Mg Tab) [facility] [place] Stop: 11/26/20 08:59 Last Admin: 10/27/20 09:00 Dose: 5 mg Documented by: Aspirin (Aspirin 81 Mg Ectab) 81 mg PO QAM [facility] Stop: 11/26/20 08:59 Last Admin: 10/27/20 09:07 Dose: Not Given Documented by: Atorvastatin Calcium (Atorvastatin 10 Mg Tab) 10 mg PO QPM [facility] Stop: 11/25/20 20:59 Last Admin: 10/26/20 21:19 Dose: 10 mg Documented by: Calcium Carbonate (Calcium Carbonate 1250mg Tab) 1,250 mg PO BIDM ROCHELLE Stop: 11/25/20 16:59 Last Admin: 10/27/20 09:05 Dose: Not Given Documented by: Citalopram Hydrobromide (Citalopram 20 Mg Tab) 10 mg PO DAILY ROCHELLE Stop: 11/26/20 08:59 Last Admin: 10/27/20 09:07 Dose: Not Given Documented by: Heparin Sodium (Porcine) (Heparin Sod 5,000 Unit/0.5 Ml Vial) 5,000 units SQ Q12 ROCHELLE Stop: 11/25/20 20:59 Last Admin: 10/27/20 09:07 Dose: Not Given Documented by: Hydromorphone HCl (Hydromorphone Inj 0.5 Mg/0.5 Ml Syr) 0.5 mg IV Q4H PRN PRN Reason: Pain Stop: 11/09/20 13:29 Potassium Chloride/Sodium Chloride (Normal Saline W/20 Meq Kcl) 20 meq in 1,000 mls @ 125 mls/hr IV .Q8H ROCHELLE Stop: 11/25/20 13:14 Last Infusion: 10/27/20 12:59 Dose: 125 mls/hr Documented by: Ertapenem 1,000 mg/ Sodium (Chloride) 60 mls @ 100 mls/hr IV Q24H ROCHELLE Stop: 11/05/20 09:59 Last Infusion: 10/27/20 13:01 Dose: Infused Documented by: Levothyroxine Sodium (Levothyroxine Sodium 25 Mcg Tablet) 25 mcg PO DAILYBB ROCHELLE Stop: 11/26/20 06:29 Last Admin: 10/27/20 06:19 Dose: 25 mcg Documented by: Melatonin (Melatonin 3 Mg Tab) 3 mg PO HSZ PRN PRN Reason: Sleep Stop: 11/25/20 14:57 Last Admin: 10/27/20 00:28 Dose: 3 mg Documented by: Ondansetron HCl (Ondansetron Inj 2 Mg/Ml 2 Ml Vial) 4 mg IV Q6H PRN PRN Reason: Nausea And Vomiting Stop: 11/25/20 13:44 Travoprost (Travoprost Z 0.004% Oph Soln 2.5 Ml Btl) 1 drops OP HS ROCHELLE Stop: 11/25/20 20:59 Last Admin: 10/26/20 21:18 Dose: 1 drops Documented by:
--- NOTE | 2020-10-27 16:25 | Surgery Progress Note ---
Date of Service October 27, 2020 Assessment & Plan (1) Acute calculous cholecystitis: Plan: POD # 0 s/p ERCP with biliary sphincterotomy and bile duct stent placement for choledocholithiasis and mild cholangitis -afebrile - t.bili wnl, lfts improving - minimal pain Plan: Given evidence of acute cholecystitis , Dr. Del Castillo discussed laparoscopic cholecystectomy with patient and she wishes to proceed with procedure tomorrow. Patient informed of procedure and informed consent obtained NPO after midnight Dr. Del Castillo has seen patient and obtained consent form. Admission and Anticipated Discharge Date Admission Date: October 26, 2020 Subjective feeling great, had ERCP procedure today Physical Exam Constitutional: WD/WN, vitals as above no acute distress and not ill appearing Respiratory: normal respiratory effort; no respiratory distress, no labored breathing, no retractions and does not use accessory muscles Oxygen via nasal cannula at 2 L Skin: no rashes, warm and dry Psychiatric: A+Ox3, euthymic affect Results & Data ([facility]) Vital Signs (Past 12 Hours) Vital Signs Temp Pulse Pulse Pulse Resp BP BP 10/27/20 15:53 36.6 C 84 18 159/80 H 10/27/20 15:34 76 10/27/20 15:20 36.6 C 76 18 148/77 H 10/27/20 14:34 36.9 C 78 18 148/73 H 10/27/20 13:50 36.9 C 76 18 144/78 H 10/27/20 13:33 36.6 C 78 18 144/83 H 10/27/20 13:05 37.0 C 80 20 125/79 10/27/20 12:50 37.0 C 79 20 129/78 10/27/20 12:35 74 18 144/72 H 10/27/20 12:25 36.2 C L 78 20 140/64 10/27/20 12:15 87 20 151/67 H 10/27/20 12:05 88 18 154/77 H 10/27/20 11:57 36.0 C L 100 H 22 154/74 H 10/27/20 10:44 37 C 86 18 165/82 H 10/27/20 07:33 83 10/27/20 07:31 83 10/27/20 07:01 36.9 C 76 18 135/61 Pulse Ox 10/27/20 15:53 90 10/27/20 15:34 10/27/20 15:20 95 10/27/20 14:34 97 10/27/20 13:50 97 10/27/20 13:33 95 10/27/20 13:05 97 10/27/20 12:50 79 L 10/27/20 12:35 96 10/27/20 12:25 98 10/27/20 12:15 97 10/27/20 12:05 98 10/27/20 11:57 97 10/27/20 10:44 92 10/27/20 07:33 10/27/20 07:31 10/27/20 07:01 91 Laboratory Results 10/27/20 10/27/20 10/27/20 Range/Units 07:36 07:36 06:00 WBC 11.36 H (4.8-10.8) K/uL RBC 4.08 L (4.2-5.4) M/uL Hgb 11.2 L (12.0-16.0) g/dL Hct 35.7 L (37-47) % MCV 87.5 (80-100) fL MCH 27.5 (25-34) pg MCHC 31.4 L (32-36) g/dL RDW Std Deviation 43.9 (36.4-46.3) fL RDW Coeff of Julio 13.7 (11.5-14.5) % Plt Count 235 (130-400) K/uL MPV 9.0 (7.4-10.4) fL Immature Gran % (Auto) 0.2 % Neut % (Auto) 78.8 % Lymph % (Auto) 10.3 % [place] % (Auto) 8.7 % Eos % (Auto) 1.7 % Baso % (Auto) 0.3 % Neut # (Auto) 8.96 H (1.4-6.5) K/uL Lymph # (Auto) 1.17 L (1.2-3.4) K/uL [place] # (Auto) 0.99 H (0.11-0.59) K/uL Eos # (Auto) 0.19 (0-0.5) K/uL Baso # (Auto) 0.03 (0-0.2) K/uL Immature Gran # (Auto) 0.02 (0.00-0.02) K/uL Sodium 142 (136-145) mmol/L Potassium 3.7 (3.5-5.1) mmol/L Chloride 112 H (98-107) mmol/L Carbon Dioxide 24 (21-32) mmol/L Anion Gap 7.0 (3-11) BUN 9 (7-18) mg/dl Creatinine 0.61 (0.6-1.2) mg/dl Est Cr Clr Drug Dosing 89.9 ml/min Est GFR ( Amer) 104.2 ml/min Est GFR (Non-Af Amer) 89.9 ml/min BUN/Creatinine Ratio 15.3 (10-20) Glucose 95 (70-99) mg/dl POC Glucose (70-99) mg/dl Calcium 8.1 L (8.5-10.1) mg/dl Total Bilirubin 0.7 D (0.2-1) mg/dl AST 139 H (15-37) U/L ALT 149 H (12-78) U/L Alkaline Phosphatase 103 (45-117) U/L Total Protein 6.0 L D (6.4-8.2) gm/dl Albumin 2.6 L (3.4-5.0) gm/dl Globulin 3.4 (2.5-4.0) gm/dl Albumin/Globulin Ratio 0.8 L (0.9-2) Urine Color Yellow Urine Appearance Clear (Clear) Urine pH 6.0 (4.5-7.5) Ur Specific [place] 1.014 (1.000-1.030) Urine Protein Negative (Negative) Urine Glucose (UA) Negative (Negative) Urine Ketones 1+ H (Negative) Urine Blood Negative (Negative) Urine Nitrite Negative (Negative) Urine Bilirubin Negative (Negative) Urine Urobilinogen Negative (Negative) Ur Leukocyte Esterase Trace H (Negative) Urine WBC (Auto) 5-10 H (0-5) /hpf Urine RBC (Auto) 0-4 (0-4) /hpf U Hyaline Cast (Auto) 0 (0-5) /lpf U Epithel Cells (Auto) 20-30 H (0-5) /lpf Urine Bacteria (Auto) Negative (Negative) 10/26/20 Range/Units 20:15 WBC (4.8-10.8) K/uL RBC (4.2-5.4) M/uL Hgb (12.0-16.0) g/dL Hct (37-47) % MCV (80-100) fL MCH (25-34) pg MCHC (32-36) g/dL RDW Std Deviation (36.4-46.3) fL RDW Coeff of Julio (11.5-14.5) % Plt Count (130-400) K/uL MPV (7.4-10.4) fL Immature Gran % (Auto) % Neut % (Auto) % Lymph % (Auto) % [place] % (Auto) % Eos % (Auto) % Baso % (Auto) % Neut # (Auto) (1.4-6.5) K/uL Lymph # (Auto) (1.2-3.4) K/uL [place] # (Auto) (0.11-0.59) K/uL Eos # (Auto) (0-0.5) K/uL Baso # (Auto) (0-0.2) K/uL Immature Gran # (Auto) (0.00-0.02) K/uL Sodium (136-145) mmol/L Potassium (3.5-5.1) mmol/L Chloride (98-107) mmol/L Carbon Dioxide (21-32) mmol/L Anion Gap (3-11) BUN (7-18) mg/dl Creatinine (0.6-1.2) mg/dl Est Cr Clr Drug Dosing ml/min Est GFR ( Amer) ml/min Est GFR (Non-Af Amer) ml/min BUN/Creatinine Ratio (10-20) Glucose (70-99) mg/dl POC Glucose 136 H (70-99) mg/dl Calcium (8.5-10.1) mg/dl Total Bilirubin (0.2-1) mg/dl AST (15-37) U/L ALT (12-78) U/L Alkaline Phosphatase (45-117) U/L Total Protein (6.4-8.2) gm/dl Albumin (3.4-5.0) gm/dl Globulin (2.5-4.0) gm/dl Albumin/Globulin Ratio (0.9-2) Urine Color Urine Appearance (Clear) Urine pH (4.5-7.5) Ur Specific [place] (1.000-1.030) Urine Protein (Negative) Urine Glucose (UA) (Negative) Urine Ketones (Negative) Urine Blood (Negative) Urine Nitrite (Negative) Urine Bilirubin (Negative) Urine Urobilinogen (Negative) Ur Leukocyte Esterase (Negative) Urine WBC (Auto) (0-5) /hpf Urine RBC (Auto) (0-4) /hpf U Hyaline Cast (Auto) (0-5) /lpf U Epithel Cells (Auto) (0-5) /lpf Urine Bacteria (Auto) (Negative)
[2020-10-27] MEDS: ATORVASTATIN 10 MG TAB PO SCH (20:37)
[2020-10-27] MEDS: TRAVOPROST Z 0.004% OPH SOLN 2.5 ML BTL OP SCH (20:37)
[2020-10-28] MEDS: NSS + 20MEQ KCL 20 MEQ/1,000 ML BAG IV SCH ×3 (00:10→13:19)
[2020-10-28] MEDS: LEVOTHYROXINE SODIUM 25 MCG TABLET PO SCH (05:39)
[2020-10-28 07:58] LABS: Basophils # (auto) 0.03 K/uL (0-0.2); Basophils % (auto) 0.3 %; Eosinophils # (auto) 0.28 K/uL (0-0.5); Eosinophils % (auto) 2.5 %; Hematocrit (blood only) 37.5 % (37-47); Hemoglobin 11.9 g/dL (12.0-16.0); Immature Granulocytes # (auto) 0.02 K/uL (0.00-0.02); Immature Granulocytes % (auto) 0.2 %; Lymphocytes # (auto) 0.92 K/uL (1.2-3.4); Lymphocytes % (auto) 8.2 %; Mean Corpuscular Hemoglobin 27.3 pg (25-34); Mean Corpuscular Hgb Conc 31.7 g/dL (32-36); Mean Platelet Volume 9.4 fL (7.4-10.4); Monocytes # (auto) 0.97 K/uL (0.11-0.59); Monocytes % (auto) 8.7 %; Neutrophils # (auto) 8.98 K/uL (1.4-6.5); Neutrophils % (auto) 80.1 %; Platelet Count 244 K/uL (130-400); RDW Coefficient of Variation 13.5 % (11.5-14.5); RDW Standard Deviation 42.2 fL (36.4-46.3); Red Blood Count 4.36 M/uL (4.2-5.4)
[2020-10-28] MEDS ORDERED: PROPOFOL IV EMULSION 10 MG/ML 20 ML VIAL IV ONE (08:19)
[2020-10-28] MEDS ORDERED: NEOSTIGMINE METHYLSULFATE 1 MG/ML 10ML VIAL ONE (08:19)
[2020-10-28] MEDS ORDERED: MIDAZOLAM HCL 1 MG/ML 2ML VIAL ONE (08:19)
[2020-10-28] MEDS ORDERED: GLYCOPYRROLATE 0.2 MG/ML VIAL ONE (08:19)
[2020-10-28] MEDS ORDERED: ONDANSETRON INJ 2 MG/ML 2 ML VIAL ONE ×2 (08:19→10:47)
[2020-10-28] MEDS ORDERED: LIDOCAINE 2% 2 ML VIAL/AMP(20MG/ML) INFIL ONE (08:19)
[2020-10-28] MEDS ORDERED: fentaNYL citrate 100 MCG/2 ML VIAL ONE (08:19)
[2020-10-28] MEDS ORDERED: DEXAMETHASONE SOD INJ 4 MG/ML VIAL ONE (08:19)
[2020-10-28 08:35] LABS: Albumin Level 2.8 gm/dl (3.4-5.0); BUN Creatinine Ratio 12.1 (10-20); Calcium 8.7 mg/dl (8.5-10.1); Creatinine Clr Calc Pharmacy 100.2 ml/min; Est GFR (African American) 107.8 ml/min; Est GFR (Non-African American) 93.1 ml/min; Potassium 4.1 mmol/L (3.5-5.1)
[2020-10-28 08:37] LABS: Albumin Globulin Ratio 0.8 (0.9-2); Bilirubin,Total 0.6 mg/dl (0.2-1); Globulin 3.5 gm/dl (2.5-4.0); Total Protein 6.3 gm/dl (6.4-8.2)
--- NOTE | 2020-10-28 08:39 | History & Physical Bridge Note ---
Date of Service October 28, 2020 History & Physical Bridge Note I have examined the patient, reviewed the History & Physical and in the interval since the performance of the History & Physical I have noted the following changes of clinical significance: no changes noted Supervising Physician Co-Signing Physician Notes I saw and evaluated the patient. She presented with several days of intermittent abdominal discomfort worsening on Monday evening. She did have significant elevation of her labs and a leukocytosis at the initial portion of her presentation suggestive of cholangitis. ERCP has been requested by the surgical service as part of preoperative evaluation. The patient does admit that she has persistent discomfort today therefore we will proceed with ERCP. We have discussed the risks of the procedure to include bleeding, infection, perforation, pancreatitis and need for repeat studies. Physical examination Right upper quadrant tender to palpation No peritoneal signs Impression: Patient with cholelithiasis seen on imaging and labs suggestive of choledocholithiasis. ERCP planned for today for further treatment in preparation for cholecystectomy later during her hospitalization. I did consent the patient for endoscopic ultrasound should there be difficulty with the ERCP this morning. Plan ERCP today perioperative Indocin to be given
[2020-10-28] MEDS ORDERED: CIPROFLOXACIN 400MG / 200ML D5W IV ONE (08:40)
[2020-10-28] MEDS ORDERED: ROCURONIUM BROMIDE 10 MG/ML 5 ML VIAL IV ONE (08:47)
[2020-10-28] MEDS ORDERED: LARYING-O-JET KIT (LTA) ONE (08:47)
--- NOTE | 2020-10-28 08:50 | Anesthesiology Consultation ---
Date of Service October 28, 2020 Assessment & Plan Chart Review Chart Review: Acceptable Risk for Surgery and Patient NOT seen in Pre Admission Testing Consults Requested none ASA ASA4 Proposed Anesthesia Anesthesia Type: General Risk / Benefits Reviewed With: PT / POA / Parent / Guardian, Accepts Plan and Informed Consent Obtained Additional Comments: covid test negative History Surgery Operation Date: 10/27/20 08:20 Proposed Procedures p Endoscopic Retrograde Cholangiopancreatogram - Lazarus Hansen DO Operation Date: 10/28/20 09:30 Proposed Procedures p Laparoscopic Cholecystectomy - [place] Del Castillo MD Height/Weight Height: 5 ft 4 in Weight: 92.1 kg Allergies Allergy/AdvReac Type Severity Reaction Status Date / Time Penicillins Allergy Intermediate FACIAL Verified 10/26/20 08:56 SWELLING povidone-iodine AdvReac Mild SWELLING Verified 10/26/20 08:56 BURNING EYE WITH INJECTION AROUND EYE Medications Home Medications Medication Instructions Recorded Confirmed Last Taken amlodipine 5 mg tablet 5 mg PO QAM 12/19/17 10/26/20 12/22/17 06:00 atorvastatin 10 mg tablet (Lipitor) 10 mg PO QPM 12/19/17 10/26/20 12/21/17 19:00 calcium carbonate 600 mg calcium 600 mg PO BID 12/19/17 10/26/20 12/21/17 08:00 (1,500 mg) tablet (Calcium) levothyroxine 25 mcg capsule 25 mcg PO QAM 12/19/17 10/26/20 12/22/17 02:00 travoprost 0.004 % eye drops 1 drp OPHTHALMIC (EYE) HS 12/19/17 10/26/20 12/21/17 23:55 (Travatan Z) citalopram 10 mg tablet (Celexa) 10 mg PO DAILY #30 tab 12/17/18 10/26/20 Unknown Flutter Valve #1 ea 04/03/20 10/26/20 Unknown mycophenolate mofetil 500 mg tablet 500 mg PO BID tab 04/03/20 10/26/20 Unknown melatonin 3 mg capsule 3 mg PO DAILY PRN cap 05/14/20 10/26/20 Unknown aspirin 81 mg tablet,delayed 81 mg PO QAM 10/26/20 10/26/20 Unknown release (Aspirin Low Dose) Active Medications Generic Name Dose Route Start Last Admin Trade Name Freq PRN Reason Stop Dose Admin Amlodipine Besylate 5 mg 10/27/20 09:00 10/27/20 09:00 Amlodipine Besylate 5 Mg Tab PO 11/26/20 08:59 5 mg QAM ROCHELLE Administration Aspirin 81 mg 10/27/20 09:00 10/27/20 09:07 Aspirin 81 Mg Ectab PO 11/26/20 08:59 Not Given QAM ROCHELLE Atorvastatin Calcium 10 mg 10/26/20 21:00 10/27/20 20:37 Atorvastatin 10 Mg Tab PO 11/25/20 20:59 10 mg QPM ROCHELLE Administration Calcium Carbonate 1,250 mg 10/26/20 17:00 10/27/20 17:04 Calcium Carbonate 1250mg Tab PO 11/25/20 16:59 1,250 mg BIDM ROCHELLE Administration Citalopram Hydrobromide 10 mg 10/27/20 09:00 10/27/20 09:07 Citalopram 20 Mg Tab PO 11/26/20 08:59 Not Given DAILY ROCHELLE Heparin Sodium (Porcine) 5,000 units 10/26/20 21:00 10/27/20 09:07 Heparin Sod 5,000 Unit/0.5 Ml Vial SQ 11/25/20 20:59 Not Given Q12 ROCHELLE Potassium Chloride/Sodium Chloride 20 meq in 1,000 mls @ 125 mls/hr 10/26/20 13:15 10/28/20 08:25 Normal Saline W/20 Meq Kcl IV 11/25/20 13:14 Infused .Q8H ROCHELLE Infusion Ertapenem 1,000 mg/ Sodium 60 mls @ 100 mls/hr 10/27/20 10:00 10/27/20 13:01 Chloride IV 11/05/20 09:59 Infused Q24H ROCHELLE Infusion Levothyroxine Sodium 25 mcg 10/27/20 06:30 10/28/20 05:39 Levothyroxine Sodium 25 Mcg Tablet PO 11/26/20 06:29 Not Given DAILYBB ROCHELLE Melatonin 3 mg 10/26/20 14:58 10/27/20 20:41 Melatonin 3 Mg Tab PO 11/25/20 14:57 3 mg HSZ PRN Administration Sleep Travoprost 1 drops 10/26/20 21:00 10/27/20 20:37 Travoprost Z 0.004% Oph Soln 2.5 Ml Btl OP 11/25/20 20:59 1 drops HS ROCHELLE Administration NPO Date Last Intake of Fluids: 10/27/20 Time Last Intake of Fluids: 23:00 Date Last Intake of Solids: 10/27/20 Time Last Intake of Solids: 17:00 Past Medical History Medical History Antisynthetase syndrome Difficulty falling asleep at night until management trainee marketing hours GERD (gastroesophageal reflux disease) Glaucoma Hyperlipidemia Hypertension Hypothyroidism Interstitial lung disease Left lower lobe pulmonary nodule Nocturnal hypoxia Obstructive sleep apnea syndrome Obstructive sleep apnea syndrome On home oxygen therapy 2L/MIN NC HS SOB (shortness of breath) on exertion Exercise / Class Metabolic Activity III < 4 Walking/Shop/Light housework Past Surgical History Surgical History History of bilateral tubal ligation History of breast biopsy RIGHT-BENIGN History of cataract surgery R/L Past Anesthesia History No Hx of Anesthesia Complications and No Family Hx of Anesthesia Complications History of PONV No Hx of PONV and No Hx of Motion Sickness Social History Smoking Status: Never smoker Do You Dip or Chew Tobacco: No Hx Alcohol Use: No alcohol intake frequency: 0-2 drinks per day Hx Substance Use: No substance use type: does not use Physical Exam Vital Signs Last Vital Signs Temp 38.1 C H 10/28/20 08:28 Pulse 103 H 10/28/20 08:28 Resp 18 10/28/20 08:28 BP 196/81 H 10/28/20 08:28 Pulse Ox 95 10/28/20 08:28 Constitutional + obese ENMT Mouth: no dentition abnormality Thyromental Distance: < 3.5 Finger Breadths Mallampati Class: II Neck normal visual inspection and trachea midline; neck extension not limited Respiratory normal respiratory effort Auscultation: + diminished lung sounds Cardiovascular Rate/Rhythm: regular rate, regular rhythm and + tachycardic Heart Sounds: no murmur Vessels: no carotid bruit Musculoskeletal Spine: normal cervical ROM Extremities: extremities normal to inspection Neurologic moves all extremities Motor/Sensory: no sensory deficit Psychiatric Orientation: alert and oriented x 3 Testing Laboratory Results 10/28/20 07:07 10/28/20 07:07 PT 9.8 Seconds (9.0-12.0) 10/26/20 10:13 INR 1.0 (0.9-1.1) 10/26/20 10:13 APTT 22.5 Seconds (21.0-31.0) 10/26/20 10:13 Urine Color Yellow 10/27/20 06:00 Urine Appearance Clear (Clear) 10/27/20 06:00 Urine pH 6.0 (4.5-7.5) 10/27/20 06:00 Ur Specific [place] 1.014 (1.000-1.030) 10/27/20 06:00 Urine Protein Negative (Negative) 10/27/20 06:00 Urine Glucose (UA) Negative (Negative) 10/27/20 06:00 Urine Ketones 1+ (Negative) H 10/27/20 06:00 Urine Nitrite Negative (Negative) 10/27/20 06:00 Ur Leukocyte Esterase Trace (Negative) H 10/27/20 06:00 Urine WBC (Auto) 5-10 /hpf (0-5) H 10/27/20 06:00 Urine RBC (Auto) 0-4 /hpf (0-4) 10/27/20 06:00 U Hyaline Cast (Auto) 0 /lpf (0-5) 10/27/20 06:00 U Epithel Cells (Auto) 20-30 /lpf (0-5) H 10/27/20 06:00 Urine Bacteria (Auto) Negative (Negative) 10/27/20 06:00 10/26/20 09:31 Aerobic Blood Culture - Final Blood Escherichia coli Anaerobic Blood Culture - Final Escherichia coli 10/26/20 09:31 Aerobic Blood Culture - Final Blood Escherichia coli Anaerobic Blood Culture - Final Escherichia coli
[2020-10-28] MEDS ORDERED: LIDOCAINE 1% LOCAL 20 ML VIAL ONE (08:56)
[2020-10-28] MEDS ORDERED: BUPIVACAINE 0.5 % 5 MG/1 ML MPF 30ML VIAL ONE (08:56)
[2020-10-28] MEDS ORDERED: BACITRACIN OINT 15 GM TUBE ONE (08:56)
--- NOTE | 2020-10-28 09:16 | History & Physical Bridge Note ---
Date of Service October 28, 2020 History & Physical Bridge Note I have examined the patient, reviewed the History & Physical and in the interval since the performance of the History & Physical I have noted the following changes of clinical significance: no changes noted
[2020-10-28] MEDS ORDERED: ALBUTEROL HFA INHALER 8.5 GM ONE (09:54)
[2020-10-28] MEDS ORDERED: SUGAMMADEX SODIUM 200 MG/2 ML VIAL IV ONE (09:55)
--- NOTE | 2020-10-28 10:55 | Post Operative Brief Note ---
Immediate Post Op Note v1 Date of Surgery October 28, 2020 Pre & Post Diagnosis Operation Date: 10/27/20 08:20 Pre-Op Diagnosis: CHOLECYSTITIS Post-Op Diagnosis: CHOLECYSTITIS, COMMON BILE DUCT STONE Operation Date: 10/28/20 09:30 Pre-Op Diagnosis: CHOLECYSTITIS, cholelithiasis Post-Op Diagnosis: CHOLECYSTITIS, cholelithiasis I identified the patient and participated in the time-out.: Yes Procedure Operation Date: 10/27/20 08:20 Actual Procedures p Endoscopic Retrograde Cholangiopancreatogram with stent, sphincterotomy, stone removal(Not Applicable) - Lazarus Hansen DO Operation Date: 10/28/20 09:30 Actual Procedures p Laparoscopic Cholecystectomy(Not Applicable) - [place] Del Castillo MD Surgeon [place] Del Castillo MD Gas Attendant JOSÉ Pastor Estimated Blood Loss 20 Findings Consistent with Post-Op Diagnosis acute cholecystitis with significant inflammation on gallbladder wall, Fluids 800ml Specimens gallbladder Anesthesia Type General Complications none Disposition Accompanied Patient To Recovery: Yes
--- NOTE | 2020-10-28 11:35 | Communication Note ---
Date of Service: October 28, 2020 Patient in the operating room with cholecystectomy during rounds today. It appears that her labs are improved from yesterday. Please call with any que stions or concerns Recomendation: complete a 10-day course of antibiotics Repeat ERCP in 6 weeks for stent removal Please call with any questions or concerns, GI to sign off.
[2020-10-28] MEDS ORDERED: HYDROmorphone INJ 1 MG/ML SYRINGE IV PRN (11:41)
[2020-10-28] MEDS ORDERED: PROMETHAZINE HCL 12.5 MG in SODIUM CHLORIDE 0.9% 50 ML IV PRN (11:41)
[2020-10-28] MEDS ORDERED: ePHEDrine sulfate 50 MG/ML AMP IV PRN (11:41)
[2020-10-28] MEDS ORDERED: NALOXONE HCL 0.4 MG/1 ML VIAL/CARP IV PRN (11:41)
[2020-10-28] MEDS ORDERED: ONDANSETRON INJ 2 MG/ML 2 ML VIAL IV PRN (11:41)
[2020-10-28] MEDS ORDERED: ATROPINE SULFATE 0.1 MG/ML 10ML SYR IV PRN (11:41)
[2020-10-28] MEDS ORDERED: LABETALOL HCL IV 5 MG/ML 20ML IV PRN (11:41)
[2020-10-28] MEDS ORDERED: FLUMAZENIL 0.1 MG/1 ML 10 ML VIAL IV PRN (11:41)
[2020-10-28] MEDS ORDERED: fentaNYL citrate 100 MCG/2 ML VIAL IV PRN (11:41)
--- NOTE | 2020-10-28 11:49 | Operative Report (OR) ---
DATE OF PROCEDURE: 10/28/2020 PREOPERATIVE DIAGNOSES: Acute cholecystitis, cholelithiasis. POSTOPERATIVE DIAGNOSES: Acute cholecystitis, cholelithiasis. OPERATION: Laparoscopic cholecystectomy. SURGEON: [place] Del Castillo MD. [employer] PRESCHOOL TEACHER: Nereida Muñiz PA-C. ANESTHESIA: General. ESTIMATED BLOOD LOSS: About 20 mL. FINDINGS: Acute cholecystitis with cholelithiasis with significant inflammation on the gallbladder w all. COMPLICATIONS: None. INDICATIONS FOR THE PROCEDURE: This is a 75-year-old female who was admitted to the hospital for acu te cholecystitis. The patient had an ERCP done yesterday and I recommended to do laparoscopic cholec ystectomy, possible open, possible cholangiogram. I did talk to the patient about the benefit, risk, alternate procedure. I indicated the risks may include, but not limited to, such as bleeding, infec tion, injury to other organs, incisional hernia, myocardial infarction, DVT, stroke, even . The patient understands. She signed informed consent and I answered all questions. DETAILS OF PROCEDURE: After we identified the patient and verified the procedure, we brought the pat ient to the OR, put the patient in the supine position on the OR table. The patient received SCD on bilateral legs to prevent DVT. Also, the patient received 400 mg of Cipro IV for prophylactic antibi otic. The patient received general anesthesia without difficulty. The abdomen was prepped and drape d in routine sterile fashion. After timeout, I injected the local anesthesia by using 1% lidocaine m ixed with 0.5% Marcaine just above the umbilicus. Then, I made a small incision just above the umbil icus, opened fascia and opened peritoneum. Under direct vision, put a Betsy trocar in, connected to CO2 to create pneumoperitoneum, flow rate at 6 liters per minute, pressure not more than 14 mmHg. Once we got a nice pneumoperitoneum, we put the camera in, looked around the abdomen. No more findin g on the liver; however, the gallbladder showed significant inflammation, gallbladder wall thickening , and edema. Once we confirmed the diagnosis, we put another two 5 mm trocars on the right upper barbara drant and one 11 trocar on the epigastric area. Once all trocars in, we put a grasper to hold the ba se of gallbladder, put in the direction to the diaphragm. Another grasper to hold the pouch of gallb ladder, put a lateral to explore the triangle of [place]. The cystic duct was identified and mobilized. I put two 10 mm metal clips on the proximal cystic jonathan t, one on the distal cystic duct. I then used a scissor for transection of cystic duct; rechecked, n o bile leak. The cystic artery was identified and mobilized. I put two 10 mm metal clips on the pro ximal cystic artery and one on the distal cystic artery, then used a scissor for transection of cysti c artery; rechecked, no active bleeding. Then, we used the Bovie to take down gallbladder from liver bed; rechecked, no bile leak and no active bleeding from the liver bed. Then, we removed gallbladde r through the catch bag. Then, we reinserted the Betsy trocar in, connected to CO2 to create pneumoperitoneum, again looked a round the abdomen, no active bleeding, no bile leak from the liver bed. Then, we removed all trocars under direct vision. No active bleeding from the trocar site. Pneumoperitoneum was released. Then I closed the umbilical incision fascial layer by using 0 Vicryl [id number] x2, closed subcutane ous layer by using 2-0 Vicryl interruptedly, closed skin by using 4-0 Vicryl continuous running, clos ed the epigastric incision 11 trocar fascial layer by using 0 Vicryl [id number] x2, closed subcu taneous layer by using 2-0 Vicryl interruptedly, closed skin by using 4-0 Vicryl interruptedly, close d another two 5 mm trocar site of skin only by using 4-0 Vicryl. Then, we put the dressing on. The patient tolerated the procedure well. All instrument, needle and sponge counts were correct x2 a t the end of the case. The patient was transferred to recovery room in stable condition. The specim en was sent to pathology. After the procedure, I did talk to the patient about the OR finding and th e procedure we did, patient understands. The lab assistant, Nereida, is necessary for this procedure. Her role is to hold the camera, retra ction and exposure. Job ID: [id number]
--- NOTE | 2020-10-28 11:58 | Anesthesiology Progress Note ---
Date of Service October 28, 2020 Anesthesia Post Procedure Vital Signs Vital Signs: Temp Pulse Pulse Pulse Resp BP BP 10/28/20 11:55 93 H 22 165/67 H 10/28/20 11:45 36.7 C 93 H 22 155/66 H 10/28/20 11:35 94 H 20 155/64 H 10/28/20 11:25 36.4 C L 98 H 20 156/68 H 10/28/20 08:28 38.1 C H 103 H 18 196/81 H 10/28/20 08:00 80 10/28/20 03:46 37.5 C 90 18 144/73 H 10/28/20 00:10 37.7 C H 10/27/20 23:59 79 10/27/20 23:20 37.2 C 90 20 145/66 H 10/27/20 19:42 37.2 C 85 18 154/81 H 10/27/20 16:20 36.6 C 72 18 132/77 10/27/20 15:53 36.6 C 84 18 159/80 H 10/27/20 15:34 76 10/27/20 15:20 36.6 C 76 18 148/77 H 10/27/20 14:34 36.9 C 78 18 148/73 H 10/27/20 13:50 36.9 C 76 18 144/78 H 10/27/20 13:33 36.6 C 78 18 144/83 H 10/27/20 13:05 37.0 C 80 20 125/79 10/27/20 12:50 37.0 C 79 20 129/78 10/27/20 12:35 74 18 144/72 H 10/27/20 12:25 36.2 C L 78 20 140/64 10/27/20 12:15 87 20 151/67 H 10/27/20 12:05 88 18 154/77 H Pulse Ox 10/28/20 11:55 94 10/28/20 11:45 92 10/28/20 11:35 96 10/28/20 11:25 96 10/28/20 08:28 95 10/28/20 08:00 10/28/20 03:46 94 10/28/20 00:10 10/27/20 23:59 10/27/20 23:20 91 10/27/20 19:42 97 10/27/20 16:20 98 10/27/20 15:53 90 10/27/20 15:34 10/27/20 15:20 95 10/27/20 14:34 97 10/27/20 13:50 97 10/27/20 13:33 95 10/27/20 13:05 97 10/27/20 12:50 79 L 10/27/20 12:35 96 10/27/20 12:25 98 10/27/20 12:15 97 10/27/20 12:05 98 Transfer of Care Handoff Completed per policy Notes Mental Status: alert / awake / arousable Patient Amnestic to Procedure: Yes Nausea / Vomiting: adequately controlled Pain: adequately controlled Airway Patency, RR, SpO2: stable & adequate BP & HR: stable & adequate Hydration State: stable & adequate Anesthetic Complications: no major complications apparent
[2020-10-28] MEDS: CALCIUM CARBONATE 1250MG TAB PO SCH ×2 (12:53→17:47)
[2020-10-28] MEDS: CITALOPRAM 20 MG TAB PO SCH (12:54)
[2020-10-28] MEDS: amLODIPine BESYLATE 5 MG TAB PO SCH (12:54)
[2020-10-28] MEDS: ERTAPENEM SODIUM 1,000 MG in SODIUM CHLORIDE 0.9% 50 ML IV SCH (12:59)
[2020-10-28] MEDS ORDERED: oxyCODONE/ACETAMINOPHEN 5mg/325mg TAB PO PRN (13:12)
[2020-10-28] MEDS ORDERED: NON-FORMULARY MEDICATION (Flutter Valve device) SCH (13:12)
[2020-10-28] MEDS: ASPIRIN 81 MG ECTAB PO SCH (13:27)
[2020-10-28] MEDS: LACTATED RINGER'S 1,000 ML IV SCH (14:19)
--- NOTE | 2020-10-28 18:06 | Hospitalist Progress Note ---
Date of Service October 28, 2020 Assessment & Plan (1) Acute calculous cholecystitis: Plan: Sepsis secondary to acute calculus cholecystitis with possible choledocholithiasis Presented with abdominal pain, nausea vomiting and fever Noted to have tachycardia, fever of more than 38 C and white count elevated at 13.23 Lactate was not elevated Blood cultures have been taken and she was started with Intravenous ertapenem and received intravenous fluid Has been feeling a lot better MRCP has been ordered-did not show any choledocholithiasis Appreciate surgery input and recommendation for cholecystectomy tomorrow 10/28/2020 Status post laparoscopic cholecystectomy Has been doing fine following the procedure and has been tolerating diet Likely discharge tomorrow Abnormal liver function test Obstructive feature Secondary to possible choledocholithiasis Appreciate GI input and recommendation Status post ERCP-extraction of choledochal stones and dilation of the sphincter with a stent placement Has acute cholangitis We will continue current antibiotic-for 10 days in total Will need ERCP in 6 weeks to remove stent (2) Abdominal pain: Plan: Due to acute cholecystitis and cholangitis (3) Interstitial lung disease: Plan: Uses 2 L of oxygen at nighttime Noted to be minimally hypoxic and requiring 2 L oxygen now No evidence of pneumonia and or worsening of the ILD We will give albuterol MDI every 6 hourly as needed (4) Obstructive sleep apnea syndrome: Plan: Uses oxygen at nighttime (5) Left lower lobe pulmonary nodule: Plan: Is been followed up in the pulmonary clinic (6) Hypertension: Plan: Patient remains stable (7) Hyperlipidemia: Plan: Continue the medicine if she has been taking (8) Hypothyroidism: Plan: Continue supplement (9) Glaucoma: Plan: Continue current medications DVT prophylaxis Subcu heparin CODE STATUS Full Admission and Anticipated Discharge Date Admission Date: October 26, 2020 Subjective 10/27/2020 The patient was seen and examined in medical telemetry unit She has been remained stable without any pain and/or fever and chills She will be going for ERCP today and laparoscopic cholecystectomy tomorrow 10/28/2020 The patient was seen and examined in medical telemetry unit She is a status post laparoscopic cholecystectomy Denies any significant pain and has been tolerating diet Likely discharge tomorrow Review of Systems Review of Systems: All systems reviewed and are unremarkable except as noted below Gastrointestinal: Minimal abdominal pain Physical Exam Physical Exam: Lying in bed without any acute discomfort Constitutional: well developed, well nourished and + obese; not ill appearing Eyes: PERRL, conjunctivae normal, anicteric sclerae ENMT: external ear and nose normal, oropharynx normal Neck: trachea midline, no thyromegaly Respiratory: no respiratory distress and no cough Auscultation: + diminished lung sounds and + crackles (Minimal bibasilar crackles) Cardiovascular: Rate/Rhythm: regular rate, regular rhythm and + tachycardic Heart Sounds: normal S1 and normal S2; no murmur Extremities: no edema Gastrointestinal (Abdomen): Inspection/Auscultation: normal bowel sounds; abdomen not distended Percussion/Palpation: abdomen soft; abdomen nontender (Negative James sign) and no hepatosplenomegaly Musculoskeletal: No acute arthritis in any joint Neurologic: Alert, awake and oriented x3. No focal sensory and motor deficit appreciated Lymphatic: no cervical or axillary lymphadenopathy Results & Data Results & Data ([facility]) Vital Signs (Past 12 Hours) Vital Signs Temp Pulse Pulse Pulse Resp BP BP 10/28/20 16:15 37.1 C 91 H 18 182/71 H 10/28/20 15:51 37.1 C 90 18 163/82 H 10/28/20 14:55 101 H 10/28/20 14:50 37.1 C 93 H 24 162/77 H 10/28/20 13:50 36.3 C L 95 H 24 164/70 H 10/28/20 13:20 37.0 C 90 20 167/71 H 10/28/20 13:14 93 H 10/28/20 12:50 37.1 C 91 H 20 160/71 H 10/28/20 12:35 37.3 C 88 22 156/74 H 10/28/20 12:20 37.3 C 92 H 24 145/76 H 10/28/20 12:05 36.7 C 91 H 18 151/62 H 10/28/20 11:55 93 H 22 165/67 H 10/28/20 11:45 36.7 C 93 H 22 155/66 H 10/28/20 11:35 94 H 20 155/64 H 10/28/20 11:25 36.4 C L 98 H 20 156/68 H 10/28/20 08:28 38.1 C H 103 H 18 196/81 H 10/28/20 08:00 80 Pulse Ox 10/28/20 16:15 93 10/28/20 15:51 93 10/28/20 14:55 10/28/20 14:50 92 10/28/20 13:50 90 10/28/20 13:20 93 10/28/20 13:14 10/28/20 12:50 93 10/28/20 12:35 90 10/28/20 12:20 91 10/28/20 12:05 95 10/28/20 11:55 94 10/28/20 11:45 92 10/28/20 11:35 96 10/28/20 11:25 96 10/28/20 08:28 95 10/28/20 08:00 Laboratory Results Short CBC 10/28/20 Range/Units 07:07 WBC 11.20 H (4.8-10.8) K/uL Hgb 11.9 L (12.0-16.0) g/dL Hct 37.5 (37-47) % Plt Count 244 (130-400) K/uL BMP 10/28/20 07:07 Sodium 143 Potassium 4.1 Chloride 113 H Carbon Dioxide 24 BUN 7 Creatinine 0.55 L Glucose 93 Calcium 8.7 Liver Function 10/28/20 Range/Units 07:07 Total Bilirubin 0.6 (0.2-1) mg/dl AST 60 H (15-37) U/L ALT 111 H (12-78) U/L Alkaline Phosphatase 114 (45-117) U/L Albumin 2.8 L (3.4-5.0) gm/dl Medications Administered Current Inpatient Medications Acetaminophen (Acetaminophen 1000 Mg/100 Ml Iv) 1,000 mg IV TID PRN PRN Reason: Pain or Fever Stop: 10/31/20 00:13 Albuterol (Albuterol Hfa 8 Gm Inhaler) 2 puffs INH Q6H PRN PRN Reason: Shortness Of Breath Stop: 11/26/20 16:14 Amlodipine Besylate (Amlodipine Besylate 5 Mg Tab) [facility] [place] Stop: 11/26/20 08:59 Last Admin: 10/28/20 12:54 Dose: 5 mg Documented by: Aspirin (Aspirin 81 Mg Ectab) 81 mg PO QAM [facility] Stop: 11/26/20 08:59 Last Admin: 10/28/20 13:27 Dose: Not Given Documented by: Atorvastatin Calcium (Atorvastatin 10 Mg Tab) 10 mg PO QPM [facility] Stop: 11/25/20 20:59 Last Admin: 10/27/20 20:37 Dose: 10 mg Documented by: Atropine Sulfate (Atropine Sulfate 0.1 Mg/Ml 10ml Syr) 0.5 mg IV Q1M PRN PRN Reason: PACU Use-HR<40 &/or Bradycardi Stop: 10/28/20 19:41 Calcium Carbonate (Calcium Carbonate 1250mg Tab) 1,250 mg PO BIDM [facility] Stop: 11/25/20 16:59 Last Admin: 10/28/20 17:47 Dose: 1,250 mg Documented by: Citalopram Hydrobromide (Citalopram 20 Mg Tab) 10 mg PO DAILY [facility] Stop: 11/26/20 08:59 Last Admin: 10/28/20 12:54 Dose: 10 mg Documented by: Enoxaparin Sodium (Enoxaparin Inj 40 Mg/0.4 Ml Syr) 40 mg SQ QAM [facility] Stop: 11/28/20 08:59 Ephedrine Sulfate (Ephedrine Sulfate 50 Mg/Ml Amp) 5 mg IV Q5M PRN PRN Reason: PACU Use Only-SBP<90 mmHg Stop: 10/28/20 19:41 Fentanyl Citrate (Fentanyl Citrate 100 Mcg/2 Ml Vial) 25 mcg IV Q5M PRN PRN Reason: PACU Use Only-Pain Stop: 10/28/20 19:41 Flumazenil (Flumazenil 0.1 Mg/1 Ml 10 Ml Vial) 0.2 mg IV Q2M PRN PRN Reason: PACU Use Only-Benzo Reversal Stop: 10/28/20 19:41 Hydromorphone HCl (Hydromorphone Inj 0.5 Mg/0.5 Ml Syr) 0.5 mg IV Q4H PRN PRN Reason: Pain Stop: 11/09/20 13:29 Hydromorphone HCl (Hydromorphone Inj 1 Mg/Ml Syringe) 0.25 mg IV Q5M PRN PRN Reason: PACU Use Only-Pain Stop: 10/28/20 19:41 Ertapenem 1,000 mg/ Sodium (Chloride) 60 mls @ 100 mls/hr IV Q24H [facility] Stop: 11/05/20 09:59 Last Infusion: 10/28/20 14:06 Dose: Infused Documented by: Promethazine HCl 12.5 mg/ (Sodium Chloride) 50.5 mls @ 204 mls/hr IV ONCE PRN PRN Reason: PACU Use Only-Nausea/Vomiting Stop: 10/28/20 19:41 Lactated Ringer's (Lr) 1,000 mls @ 80 mls/hr IV .[id number] [facility] Stop: 11/27/20 13:11 Last Admin: 10/28/20 14:19 Dose: 80 mls/hr Documented by: Labetalol HCl (Labetalol Hcl Iv 5 Mg/Ml 20ml) 5 mg IV Q5M PRN PRN Reason: PACU Use-SBP>160 or DBP>100 Stop: 10/28/20 19:41 Levothyroxine Sodium (Levothyroxine Sodium 25 Mcg Tablet) 25 mcg PO DAILYBB [facility] Stop: 11/26/20 06:29 Last Admin: 10/28/20 05:39 Dose: Not Given Documented by: Melatonin (Melatonin 3 Mg Tab) 3 mg PO HSZ PRN PRN Reason: Sleep Stop: 11/25/20 14:57 Last Admin: 10/27/20 20:41 Dose: 3 mg Documented by: Mycophenolate Mofetil (Mycophenolate Mofetil 250 Mg Cap) 500 mg PO BID [facility] Stop: 11/27/20 20:59 Naloxone HCl (Naloxone Hcl 0.4 Mg/1 Ml Vial/Carp) 0.2 mg IV Q2M PRN PRN Reason: PACU Use Only-Opiate Reversal Stop: 10/28/20 19:41 Ondansetron HCl (Ondansetron Inj 2 Mg/Ml 2 Ml Vial) 4 mg IV Q6H PRN PRN Reason: Nausea And Vomiting Stop: 11/25/20 13:44 Ondansetron HCl (Ondansetron Inj 2 Mg/Ml 2 Ml Vial) 4 mg IV ONCE PRN PRN Reason: PACU Use Only-Nausea/Vomiting Stop: 10/28/20 19:41 Oxycodone/Acetaminophen (Oxycodone/Acetaminophen 5mg/325mg Tab) 1 tab PO Q4H PRN PRN Reason: Pain Stop: 11/11/20 13:11 Travoprost (Travoprost Z 0.004% Oph Soln 2.5 Ml Btl) 1 drops OP HS [facility] Stop: 11/25/20 20:59 Last Admin: 10/27/20 20:37 Dose: 1 drops Documented by:
[2020-10-28] MEDS: TRAVOPROST Z 0.004% OPH SOLN 2.5 ML BTL OP SCH (21:43)
[2020-10-28] MEDS: MELATONIN 3 MG TAB PO PRN (21:49)
[2020-10-28] MEDS: ATORVASTATIN 10 MG TAB PO SCH (21:49)
[2020-10-28] MEDS: MYCOPHENOLATE MOFETIL 250 MG CAP PO SCH (22:48)
[2020-10-29] MEDS: LACTATED RINGER'S 1,000 ML IV SCH ×2 (03:35→15:37)
[2020-10-29] MEDS ORDERED: CIPROFLOXACIN / D5W 400 MG/200 ML BAG IV SCH (06:00)
[2020-10-29] MEDS: LEVOTHYROXINE SODIUM 25 MCG TABLET PO SCH (06:29)
[2020-10-29 07:29] LABS: Basophils # (auto) 0.02 K/uL (0-0.2); Basophils % (auto) 0.1 %; Eosinophils # (auto) 0.03 K/uL (0-0.5); Eosinophils % (auto) 0.2 %; Hematocrit (blood only) 36.2 % (37-47); Hemoglobin 11.9 g/dL (12.0-16.0); Immature Granulocytes # (auto) 0.03 K/uL (0.00-0.02); Immature Granulocytes % (auto) 0.2 %; Lymphocytes # (auto) 0.68 K/uL (1.2-3.4); Mean Corpuscular Hemoglobin 27.7 pg (25-34); Mean Corpuscular Hgb Conc 32.9 g/dL (32-36); Mean Corpuscular Volume 84.4 fL (80-100); Mean Platelet Volume 9.3 fL (7.4-10.4); Monocytes # (auto) 1.27 K/uL (0.11-0.59); Monocytes % (auto) 9.4 %; Neutrophils # (auto) 11.48 K/uL (1.4-6.5); Neutrophils % (auto) 85.1 %; Platelet Count 262 K/uL (130-400); RDW Coefficient of Variation 13.5 % (11.5-14.5); RDW Standard Deviation 40.6 fL (36.4-46.3); Red Blood Count 4.29 M/uL (4.2-5.4); White Blood Count 13.51 K/uL (4.8-10.8)
[2020-10-29 07:59] LABS: Albumin Level 2.8 gm/dl (3.4-5.0); BUN Creatinine Ratio 9.6 (10-20); Creatinine Clr Calc Pharmacy 90.3 ml/min; Est GFR (African American) 104.2 ml/min; Est GFR (Non-African American) 89.9 ml/min; Potassium 3.7 mmol/L (3.5-5.1)
[2020-10-29 08:02] LABS: Albumin Globulin Ratio 0.8 (0.9-2); Bilirubin,Total 0.4 mg/dl (0.2-1); Globulin 3.3 gm/dl (2.5-4.0); Total Protein 6.1 gm/dl (6.4-8.2)
[2020-10-29] MEDS: ASPIRIN 81 MG ECTAB PO SCH (08:30)
[2020-10-29] MEDS: MYCOPHENOLATE MOFETIL 250 MG CAP PO SCH ×2 (08:30→21:08)
[2020-10-29] MEDS: amLODIPine BESYLATE 5 MG TAB PO SCH (09:02)
[2020-10-29] MEDS: CITALOPRAM 20 MG TAB PO SCH (09:02)
[2020-10-29] MEDS: ENOXAPARIN INJ 40 MG/0.4 ML SYR SQ SCH (09:02)
[2020-10-29] MEDS: CALCIUM CARBONATE 1250MG TAB PO SCH ×2 (09:02→16:25)
[2020-10-29] MEDS: ERTAPENEM SODIUM 1,000 MG in SODIUM CHLORIDE 0.9% 50 ML IV SCH (09:38)
--- NOTE | 2020-10-29 13:06 | Surgery Progress Note ---
Date of Service October 29, 2020 Assessment & Plan (1) Acute calculous cholecystitis: Plan: POD # 1 s/p laparoscopic cholecystectomy POD # 2 s/p ERCP with biliary sphincterotomy and bile duct stent placement for choledocholithiasis and mild cholangitis -afebrile, vss - t.bili wnl, lfts improved to wnl - no postop pain - leukocytosis 13K today (likely postop elevation) Plan: Doing well from surgical standpoint can increase diet as tolerated Will need surgical follow-up in 2 weeks Discharge instructions from surgical standpoint reviewed Discussed with dr. wiseman who agrees with above. Admission and Anticipated Discharge Date Admission Date: October 26, 2020 Subjective feeling great, no abdominal or incisional pain tolerating clear liquids no nausea or vomiting urinating without difficulty no chest pain or shortness of breath, breathing at baseline Had loose incontinent stool this morning Physical Exam Constitutional: WD/WN, vitals as above + obese Respiratory: normal respiratory effort; no respiratory distress, no labored breathing and no retractions Gastrointestinal (Abdomen): Inspection/Auscultation: abdomen normal to inspection; abdomen not distended Percussion/Palpation: abdomen soft; abdomen nontender, no guarding and abdomen not rigid Skin: no rashes, warm and dry + incision (incisions covered with dry dressings) Psychiatric: A+Ox3, euthymic affect Results & Data ([facility]) Vital Signs (Past 12 Hours) Vital Signs Temp Pulse Resp BP Pulse Ox 10/29/20 11:46 37.1 C 91 H 20 175/75 H 91 10/29/20 07:14 36.9 C 84 18 163/72 H 94 10/29/20 03:11 36.6 C 76 18 158/53 H 92 Laboratory Results 10/29/20 10/29/20 Range/Units 07:06 07:06 WBC 13.51 H (4.8-10.8) K/uL RBC 4.29 (4.2-5.4) M/uL Hgb 11.9 L (12.0-16.0) g/dL Hct 36.2 L (37-47) % MCV 84.4 (80-100) fL MCH 27.7 (25-34) pg MCHC 32.9 (32-36) g/dL RDW Std Deviation 40.6 (36.4-46.3) fL RDW Coeff of Julio 13.5 (11.5-14.5) % Plt Count 262 (130-400) K/uL MPV 9.3 (7.4-10.4) fL Immature Gran % (Auto) 0.2 % Neut % (Auto) 85.1 % Lymph % (Auto) 5.0 % [place] % (Auto) 9.4 % Eos % (Auto) 0.2 % Baso % (Auto) 0.1 % Neut # (Auto) 11.48 H (1.4-6.5) K/uL Lymph # (Auto) 0.68 L (1.2-3.4) K/uL [place] # (Auto) 1.27 H (0.11-0.59) K/uL Eos # (Auto) 0.03 (0-0.5) K/uL Baso # (Auto) 0.02 (0-0.2) K/uL Immature Gran # (Auto) 0.03 H (0.00-0.02) K/uL Sodium 143 (136-145) mmol/L Potassium 3.7 (3.5-5.1) mmol/L Chloride 110 H (98-107) mmol/L Carbon Dioxide 27 (21-32) mmol/L Anion Gap 6.0 (3-11) BUN 6 L (7-18) mg/dl Creatinine 0.61 (0.6-1.2) mg/dl Est Cr Clr Drug Dosing 90.3 ml/min Est GFR ( Amer) 104.2 ml/min Est GFR (Non-Af Amer) 89.9 ml/min BUN/Creatinine Ratio 9.6 L (10-20) Glucose 133 H (70-99) mg/dl Calcium 9.0 (8.5-10.1) mg/dl Total Bilirubin 0.4 (0.2-1) mg/dl AST 37 (15-37) U/L ALT 82 H (12-78) U/L Alkaline Phosphatase 88 (45-117) U/L Total Protein 6.1 L (6.4-8.2) gm/dl Albumin 2.8 L (3.4-5.0) gm/dl Globulin 3.3 (2.5-4.0) gm/dl Albumin/Globulin Ratio 0.8 L (0.9-2)
[2020-10-29] MEDS ORDERED: CIPROFLOXACIN 500 MG TAB PO STA (14:39)
--- NOTE | 2020-10-29 16:18 | Hospitalist Progress Note ---
Date of Service October 29, 2020 Assessment & Plan (1) Acute calculous cholecystitis: Plan: Sepsis secondary to acute calculus cholecystitis with possible choledocholithiasis Presented with abdominal pain, nausea vomiting and fever Noted to have tachycardia, fever of more than 38 C and white count elevated at 13.23 on admission. Abnormal liver function test Acute Cholangitis s/p laparoscopic cholecystectomy day 2 Obstructive feature Secondary to possible choledocholithiasis Appreciate GI input and recommendation Status post ERCP-extraction of choledochal stones and dilation of the sphincter with a stent placement. Appreciate surgery input. Will need ERCP in 6 weeks to remove stent E. coli bacteremia. Discontinue ertapenem today and start patient on ciprofloxacin p.o. 500 mg twice daily. WBC noted, paitent remais afebrile. Appreciate surgery input; s/p laparoscopic cholecystectomy (2) Abdominal pain: Plan: Due to acute cholecystitis and cholangitis (3) Interstitial lung disease: Plan: Uses 2 L of oxygen at nighttime Noted to be minimally hypoxic and requiring 2 L oxygen now No evidence of pneumonia and or worsening of the ILD We will give albuterol MDI every 6 hourly as needed (4) Obstructive sleep apnea syndrome: Plan: Uses oxygen at nighttime (5) Left lower lobe pulmonary nodule: Plan: Is been followed up in the pulmonary clinic (6) Hypertension: Plan: Patient remains stable (7) Hyperlipidemia: Plan: Continue the medicine if she has been taking (8) Hypothyroidism: Plan: Continue supplement (9) Glaucoma: Plan: Continue current medications DVT prophylaxis Subcu heparin CODE STATUS Full Admission and Anticipated Discharge Date Admission Date: October 26, 2020 Subjective Patient is doing okay this morning. Remains afebrile. Noted to have further leukocytosis. Denies any nausea or vomiting. Have been tolerating diet. Reports abdominal pain is controlled. Rest of the review of system is negative Review of Systems Review of Systems: All systems reviewed & are unremarkable except as noted in HPI & below Physical Exam Physical Exam: General: A&Ox3 HENT: NCAT, MMM, EOMI Eyes: PERRLA Neck: Supple, normal range of motion CVS: normal rate and rhythm Resp: b/l good breath sounds Abdomen: Soft, incsion c/d/i Extremities: No c/c/e Neuro: face symmetric, strength grossly equal, no focal deficit Skin: warm and dry, no rashes/lesions/errythema MSK: normal ROM, no joint swelling/erythema Results & Data Results & Data ([facility]) Vital Signs (Past 12 Hours) Vital Signs Temp Pulse Resp BP Pulse Ox 10/29/20 15:23 37.0 C 95 H 20 175/79 H 91 10/29/20 11:46 37.1 C 91 H 20 175/75 H 91 10/29/20 07:14 36.9 C 84 18 163/72 H 94
[2020-10-29] MEDS: ACETAMINOPHEN 1000 MG/100 ML IV IV PRN (19:27)
[2020-10-29] MEDS: TRAVOPROST Z 0.004% OPH SOLN 2.5 ML BTL OP SCH (20:45)
[2020-10-29] MEDS: ATORVASTATIN 10 MG TAB PO SCH (20:45)
[2020-10-29] MEDS: MELATONIN 3 MG TAB PO PRN (21:07)
[2020-10-29] MEDS: CIPROFLOXACIN 500 MG TAB PO SCH (21:08)
[2020-10-30] MEDS: LACTATED RINGER'S 1,000 ML IV SCH (04:34)
[2020-10-30] MEDS: LEVOTHYROXINE SODIUM 25 MCG TABLET PO SCH (06:32)
[2020-10-30] MEDS: CIPROFLOXACIN 500 MG TAB PO SCH (09:00)
[2020-10-30] MEDS: ENOXAPARIN INJ 40 MG/0.4 ML SYR SQ SCH (09:00)
[2020-10-30] MEDS: ASPIRIN 81 MG ECTAB PO SCH (09:01)
[2020-10-30] MEDS: amLODIPine BESYLATE 5 MG TAB PO SCH (09:01)
[2020-10-30] MEDS: CITALOPRAM 20 MG TAB PO SCH (09:01)
[2020-10-30] MEDS: MYCOPHENOLATE MOFETIL 250 MG CAP PO SCH ×2 (09:01→21:15)
[2020-10-30] MEDS: CALCIUM CARBONATE 1250MG TAB PO SCH ×2 (09:01→17:15)
--- NOTE | 2020-10-30 09:13 | Surgery Progress Note ---
Date of Service October 30, 2020 Assessment & Plan (1) Acute calculous cholecystitis: Plan: POD # 2 s/p laparoscopic cholecystectomy POD # 3 s/p ERCP with biliary sphincterotomy and bile duct stent placement for choledocholithiasis and mild cholangitis - febrile yesterday afternoon, tmax 38.4 ,afebrile this morning - t.bili wnl, lfts improved to wnl (checked yesterday) - no postop pain - leukocytosis increasing 17K today (13K yesterday) - Blood cultures on 10/26/20 + 2/2 for E.coli Plan: Given elevation of leukocytosis up to 17K would recommend start IV antibiotics again. Blood cultures repeated per medicine team today. Doing well from surgical standpoint Continue heart healthy diet Monitor loose stools (after meals) may need cholestyramine, could also be secondary to antibiotics Discharge instructions from surgical standpoint reviewed previously, she will need surgical follow-up in 1-[address] Suero with [facility] surgery covering over the weekend. Dr. Del Castillo has seen patient, agrees with above. Admission and Anticipated Discharge Date Admission Date: October 26, 2020 Subjective feeling good no abdominal or incision pain no nausea or vomiting tolerating heart healthy diet fever yesterday afternoon, was planned to be discharged yesterday but kept overnight Physical Exam Constitutional: WD/WN, vitals as above no acute distress and not ill appearing Respiratory: normal respiratory effort Gastrointestinal (Abdomen): Inspection/Auscultation: abdomen normal to inspection; abdomen not distended Percussion/Palpation: abdomen soft; abdomen nontender, no guarding and abdomen not rigid Skin: no rashes, warm and dry + incision (covered with dry dressings, intact) Psychiatric: A+Ox3, euthymic affect Results & Data ([facility]) Vital Signs (Past 12 Hours) Vital Signs Temp Pulse Pulse Resp BP Pulse Ox 10/30/20 07:32 37.4 C 97 H 20 181/84 H 91 10/30/20 03:51 37.6 C H 90 20 167/73 H 90 10/29/20 23:59 93 H 10/29/20 23:18 37.3 C 89 20 154/82 H 92 Laboratory Results 10/30/20 Range/Units 08:28 WBC 17.00 H (4.8-10.8) K/uL RBC 4.84 (4.2-5.4) M/uL Hgb 13.5 (12.0-16.0) g/dL Hct 41.5 (37-47) % MCV 85.7 (80-100) fL MCH 27.9 (25-34) pg MCHC 32.5 (32-36) g/dL RDW Std Deviation 41.7 (36.4-46.3) fL RDW Coeff of Julio 13.4 (11.5-14.5) % Plt Count 318 (130-400) K/uL MPV 9.7 (7.4-10.4) fL Immature Gran % (Auto) 0.3 % Neut % (Auto) 82.9 % Lymph % (Auto) 7.1 % [place] % (Auto) 7.4 % Eos % (Auto) 2.1 % Baso % (Auto) 0.2 % Neut # (Auto) 14.09 H (1.4-6.5) K/uL Lymph # (Auto) 1.20 (1.2-3.4) K/uL [place] # (Auto) 1.26 H (0.11-0.59) K/uL Eos # (Auto) 0.36 (0-0.5) K/uL Baso # (Auto) 0.04 (0-0.2) K/uL Immature Gran # (Auto) 0.05 H (0.00-0.02) K/uL
[2020-10-30 09:29] LABS: Basophils # (auto) 0.04 K/uL (0-0.2); Basophils % (auto) 0.2 %; Eosinophils # (auto) 0.36 K/uL (0-0.5); Eosinophils % (auto) 2.1 %; Hematocrit (blood only) 41.5 % (37-47); Hemoglobin 13.5 g/dL (12.0-16.0); Immature Granulocytes # (auto) 0.05 K/uL (0.00-0.02); Immature Granulocytes % (auto) 0.3 %; Lymphocytes % (auto) 7.1 %; Mean Corpuscular Hemoglobin 27.9 pg (25-34); Mean Corpuscular Hgb Conc 32.5 g/dL (32-36); Mean Corpuscular Volume 85.7 fL (80-100); Mean Platelet Volume 9.7 fL (7.4-10.4); Monocytes # (auto) 1.26 K/uL (0.11-0.59); Monocytes % (auto) 7.4 %; Neutrophils # (auto) 14.09 K/uL (1.4-6.5); Neutrophils % (auto) 82.9 %; Platelet Count 318 K/uL (130-400); RDW Coefficient of Variation 13.4 % (11.5-14.5); RDW Standard Deviation 41.7 fL (36.4-46.3); Red Blood Count 4.84 M/uL (4.2-5.4)
[2020-10-30] MEDS: metroNIDAZOLE 500 MG/100 ML BAG IV SCH ×2 (11:33→19:37)
--- NOTE | 2020-10-30 13:23 | Hospitalist Progress Note ---
Date of Service October 30, 2020 Assessment & Plan (1) Acute calculous cholecystitis: Plan: Sepsis secondary to acute calculus cholecystitis with possible choledocholithiasis Presented with abdominal pain, nausea vomiting and fever Noted to have tachycardia, fever of more than 38 C and white count elevated at 13.23 on admission. Abnormal liver function test Acute Cholangitis s/p laparoscopic cholecystectomy day 2 Obstructive feature Secondary to possible choledocholithiasis Appreciate GI input and recommendation Status post ERCP-extraction of choledochal stones and dilation of the sphincter with a stent placement. Appreciate surgery input. Will need ERCP in 6 weeks to remove stent E. coli bacteremia. Discontinue ertapenem today and start patient on ciprofloxacin p.o. 500 mg twice daily. WBC noted, paitent remais afebrile. Appreciate surgery input; s/p laparoscopic cholecystectomy. Noted to have further leukocytosis today. Will repeat blood cultures and started Flagyl as well. (2) Abdominal pain: Plan: Due to acute cholecystitis and cholangitis (3) Interstitial lung disease: Plan: Uses 2 L of oxygen at nighttime Noted to be minimally hypoxic and requiring 2 L oxygen now No evidence of pneumonia and or worsening of the ILD We will give albuterol MDI every 6 hourly as needed (4) Obstructive sleep apnea syndrome: Plan: Uses oxygen at nighttime (5) Left lower lobe pulmonary nodule: Plan: Is been followed up in the pulmonary clinic (6) Hypertension: Plan: Patient remains stable (7) Hyperlipidemia: Plan: Continue the medicine if she has been taking (8) Hypothyroidism: Plan: Continue supplement (9) Glaucoma: Plan: Continue current medications DVT prophylaxis Subcu heparin CODE STATUS Full Admission and Anticipated Discharge Date Admission Date: October 26, 2020 Subjective Patient is doing okay this morning. She has been tolerating diet. T-max of 38.4 yesterday afternoon. Review of system is negative. Leukocytosis further worsened. Review of Systems Review of Systems: All systems reviewed & are unremarkable except as noted in HPI & below Physical Exam Physical Exam: General: A&Ox3 HENT: NCAT, MMM, EOMI Eyes: PERRLA Neck: Supple, normal range of motion CVS: normal rate and rhythm Resp: b/l good breath sounds Abdomen: Soft, incsion c/d/i Extremities: No c/c/e Neuro: face symmetric, strength grossly equal, no focal deficit Skin: warm and dry, no rashes/lesions/errythema MSK: normal ROM, no joint swelling/erythema Results & Data Results & Data ([facility]) Vital Signs (Past 12 Hours) Vital Signs Temp Pulse Pulse Resp BP Pulse Ox Pulse Ox 10/30/20 10:54 37.3 C 105 H 20 153/82 H 90 10/30/20 09:00 94 10/30/20 08:00 88 10/30/20 07:32 37.4 C 97 H 20 181/84 H 91 10/30/20 03:51 37.6 C H 90 20 167/73 H 90
[2020-10-30] MEDS: CIPROFLOXACIN / D5W 400 MG/200 ML BAG IV SCH (17:13)
[2020-10-30] MEDS: TRAVOPROST Z 0.004% OPH SOLN 2.5 ML BTL OP SCH (21:15)
[2020-10-30] MEDS: ATORVASTATIN 10 MG TAB PO SCH (21:15)
[2020-10-30] MEDS: MELATONIN 3 MG TAB PO PRN (21:17)
[2020-10-30] MEDS: ACETAMINOPHEN 1000 MG/100 ML IV IV PRN (23:23)
[2020-10-31] MEDS: metroNIDAZOLE 500 MG/100 ML BAG IV SCH ×3 (03:44→20:54)
[2020-10-31] MEDS: CIPROFLOXACIN / D5W 400 MG/200 ML BAG IV SCH ×2 (04:55→17:24)
[2020-10-31] MEDS: LEVOTHYROXINE SODIUM 25 MCG TABLET PO SCH (04:56)
--- NOTE | 2020-10-31 06:05 | Surgery Progress Note ---
Date of Service October 31, 2020 Assessment & Plan (1) Acute cholecystitis: Plan: Postoperative day #4 ERCP Postoperative day #3 laparoscopic cholecystectomy Continue analgesics as needed Continue antiemetics as needed Patient continues to have episodes of fever. Patient did have blood cultures on 10/26/2020 which grew pansensitive E. coli. Repeat blood cultures were sent on 10/30/2020 and are pending. Labs this morning are pending. Continue antibiotics in the form of Cipro and Flagyl Continue diet as tolerated Ambulate as tolerated Continue use of incentive spirometry Patient is doing well from surgical perspective. Once fevers resolved patient can be discharged home. Lovenox is in place for DVT prevention Admission and Anticipated Discharge Date Admission Date: October 26, 2020 Supervising Physician Co-Signing Physician Notes I personally saw and evaluated the patient with Camron Barrera PA-C and agree with the assessment and plan Still with low grade fevers, if continues to spike can check UA, CXR, but most likely from her E.coli bacteremia Ok to discharge once fevers have resolved Subjective Patient is resting comfortably in bed. This morning she says she has no abdominal pain. She denies any nausea or vomiting. Her bowels have been moving since her surgery. She denies any shakes or chills but has had fever on several occasion over the past 24 to 48 hours. She denies any dysuria and is voiding without difficulty. She denies any cough or shortness of breath. She denies any calf tenderness. Physical Exam Respiratory: normal respiratory effort; no respiratory distress and no labored breathing Auscultation: lungs clear to auscultation bilaterally Cardiovascular: Rate/Rhythm: regular rate and regular rhythm Gastrointestinal (Abdomen): Abdomen is soft, nontender, nondistended. Palpation did not cause pain. Incisions are clean, dry, intact. Musculoskeletal: No calf tenderness Results & Data ([facility]) Vital Signs (Past 12 Hours) Vital Signs Temp Pulse Pulse Pulse Resp BP Pulse Ox 10/31/20 03:02 37.1 C 80 19 166/90 H 93 10/31/20 00:16 37.5 C 98 H 91 10/30/20 23:13 38.0 C H 105 H 22 162/81 H 90 10/30/20 22:20 99 H 10/30/20 19:08 37.6 C H 102 H 18 158/83 H 91 PG Care Time/CCT Total # of Minutes Spent Total Time Spent with Patient: Total time spent is greater than 50% in coordination of care (as documented) at patient's floor/unit and/or counseling patient: Coding Level of Care Code None Diagnoses Acute cholecystitis K81.0
[2020-10-31 06:33] LABS: Basophils # (auto) 0.06 K/uL (0-0.2); Basophils % (auto) 0.4 %; Eosinophils # (auto) 0.55 K/uL (0-0.5); Eosinophils % (auto) 3.6 %; Hemoglobin 12.5 g/dL (12.0-16.0); Immature Granulocytes # (auto) 0.06 K/uL (0.00-0.02); Immature Granulocytes % (auto) 0.4 %; Lymphocytes # (auto) 1.43 K/uL (1.2-3.4); Lymphocytes % (auto) 9.3 %; Mean Corpuscular Hemoglobin 27.2 pg (25-34); Mean Corpuscular Hgb Conc 32.1 g/dL (32-36); Mean Platelet Volume 9.1 fL (7.4-10.4); Monocytes # (auto) 1.41 K/uL (0.11-0.59); Monocytes % (auto) 9.2 %; Neutrophils # (auto) 11.83 K/uL (1.4-6.5); Neutrophils % (auto) 77.1 %; Platelet Count 313 K/uL (130-400); RDW Coefficient of Variation 13.3 % (11.5-14.5); RDW Standard Deviation 40.7 fL (36.4-46.3); Red Blood Count 4.59 M/uL (4.2-5.4); White Blood Count 15.34 K/uL (4.8-10.8)
[2020-10-31 07:00] LABS: BUN Creatinine Ratio 13.5 (10-20); Calcium 8.8 mg/dl (8.5-10.1); Creatinine Clr Calc Pharmacy 81.4 ml/min; Est GFR (African American) 101.1 ml/min; Est GFR (Non-African American) 87.2 ml/min; Potassium 3.4 mmol/L (3.5-5.1)
[2020-10-31] MEDS: ASPIRIN 81 MG ECTAB PO SCH (09:17)
[2020-10-31] MEDS: CALCIUM CARBONATE 1250MG TAB PO SCH ×2 (09:17→17:24)
[2020-10-31] MEDS: CITALOPRAM 20 MG TAB PO SCH (09:17)
[2020-10-31] MEDS: amLODIPine BESYLATE 5 MG TAB PO SCH (09:18)
[2020-10-31] MEDS: ENOXAPARIN INJ 40 MG/0.4 ML SYR SQ SCH (09:18)
[2020-10-31] MEDS: MYCOPHENOLATE MOFETIL 250 MG CAP PO SCH ×2 (09:18→20:56)
--- NOTE | 2020-10-31 09:21 | Hospitalist Progress Note ---
Date of Service October 31, 2020 Assessment & Plan (1) Acute calculous cholecystitis: Plan: Sepsis secondary to acute calculus cholecystitis with possible choledocholithiasis Presented with abdominal pain, nausea vomiting and fever Noted to have tachycardia, fever of more than 38 C and white count elevated at 13.23 on admission. Status post ERCP-extraction of choledochal stones and dilation of the sphincter with a stent placement on 10/27 Then underwent lap lamont on 10/28 and is healing well E. coli bacteremia noted on blood cultures. This is likely secondary to passage of stone. Repeat blood cultures are pending, and patient remains febrile with an elevated white count that is improved from 17 K to 15 K today. She was originally on ertapenem for several days then started on ciprofloxacin. She continues on Flagyl. Continue current antibiotics and monitor for continued fevers and for blood culture results. Would prefer she remain fever free for at least 24 hours prior to discharge. This was discussed with the patient. Will need ERCP in 6 weeks to remove stent (2) Ascending cholangitis: Plan: Plan as above (3) E coli bacteremia: Plan: Plan as above, repeat blood cultures are pending. Continue ciprofloxacin. (4) Interstitial lung disease: Plan: Uses 2 L of oxygen at nighttime and states she is at her baseline. However, upon record review, she has been requiring oxygen supplementation 12/09 since her operation. In the setting of fever will repeat chest x-ray to rule out postoperative pneumonia as a cause of fever, persistent white count, and persistent hypoxia. (5) Obstructive sleep apnea syndrome: Plan: Uses oxygen at nighttime (6) Left lower lobe pulmonary nodule: Plan: Is been followed up in the pulmonary clinic (7) Hypertension: Plan: Uncontrolled on home dose of Norvasc 5 mg. We will increase this by 5 mg daily starting today. Of note patient reports pain is controlled, so that appears to not be a variable. (8) Hyperlipidemia: Plan: Continue atorvastatin per home regimen. (9) Hypothyroidism: Plan: Continue Synthroid per home regimen. (10) DVT prophylaxis: Plan: Lovenox Full code Disposition-to home when she is afebrile for at least 24 hours. Rule out postoperative pneumonia with repeat chest x-ray today. Krissy Abraham DO [facility] Hospitalist Admission and Anticipated Discharge Date Admission Date: October 26, 2020 Subjective 75-year-old female admitted for acute choledocholithiasis with ascending cholangitis status post laparoscopic cholecystectomy on 10/[address] Del Castillo. She also underwent an ERCP with stent placement sphincterotomy and stone removal by Dr. Hansen on 10/28. She would denies any pain this morning she is tolerating p.o. She did have 4 elevated recorded temperatures in the last 48 hours with a T-max of 38.0 at 2300 last night. She denies feeling poorly and is ambulating independently. She is having normal bowel movements and tolerating solid food. She denies any nausea. She denies any chest pain, shortness of breath or leg pain. She denies any leg swelling. She denies any other respiratory symptoms or other issues. Repeat blood cultures are pending at this time and she continues on Cipro and Flagyl IV. Review of Systems Review of Systems: At least ten systems were reviewed and negative except as indicated in HPI above. Physical Exam Physical Exam: CONSTITUTIONAL: WNWD, vitals as above, generally well- appearing EYES: normal conjunctivae, no scleral icterus ENT: external ear and nose normal, MMM NECK: trachea midline RESPIRATORY: clear to auscultation bilaterally, no crackles, rales or wheezes, normal respiratory effort CARDIOVASCULAR: regular rate and rhythm, S1 and 2 heard without murmurs, gallops or rubs, no JVD, no peripheral edema GASTROINTESTINAL: normal bowel sounds, soft, nontender, no guarding, multiple laparoscopic incision sites that are covered with dressings that are clean dry and intact. No surrounding erythema or drainage present. MUSCULOSKELETAL: strength 5/5 throughout, head is normocephalic and atraumatic, neck supple, normal palpation of chest wall without tenderness, No calf pain to squeeze bilaterally and no calf swelling noted. SKIN: warm and dry NEUROLOGIC: CN 2-12 grossly intact, normal cognition, normal speech PSYCHIATRIC: alert cooperative and oriented to person, place and time. Euthymic mood, makes good eye contact, language grossly intact, recent and remote memory grossly intact. Results & Data Results & Data ([facility]) Vital Signs (Past 12 Hours) Vital Signs Temp Pulse Pulse Pulse Resp BP Pulse Ox 10/31/20 07:08 37.3 C 82 18 158/85 H 94 10/31/20 03:02 37.1 C 80 19 166/90 H 93 10/31/20 00:16 37.5 C 98 H 91 10/30/20 23:13 38.0 C H 105 H 22 162/81 H 90 10/30/20 22:20 99 H Laboratory Results Short CBC 10/30/20 10/31/20 Range/Units 08:28 06:04 WBC 17.00 H 15.34 H (4.8-10.8) K/uL Hgb 13.5 12.5 (12.0-16.0) g/dL Hct 41.5 39.0 (37-47) % Plt Count 318 313 (130-400) K/uL BMP 10/31/20 06:04 Sodium 141 Potassium 3.4 L Chloride 107 Carbon Dioxide 30 BUN 9 Creatinine 0.67 Glucose 145 H Calcium 8.8 Medications Administered Current Inpatient Medications Albuterol (Albuterol Hfa 8 Gm Inhaler) 2 puffs INH Q6H PRN PRN Reason: Shortness Of Breath Stop: 11/26/20 16:14 Amlodipine Besylate (Amlodipine Besylate 5 Mg Tab) 5 mg PO QAM [facility] Stop: 11/26/20 08:59 Last Admin: 10/30/20 09:01 Dose: 5 mg Documented by: Aspirin (Aspirin 81 Mg Ectab) 81 mg PO QAM [facility] Stop: 11/26/20 08:59 Last Admin: 10/30/20 09:01 Dose: 81 mg Documented by: Atorvastatin Calcium (Atorvastatin 10 Mg Tab) 10 mg PO QPM [facility] Stop: 11/25/20 20:59 Last Admin: 10/30/20 21:15 Dose: 10 mg Documented by: Calcium Carbonate (Calcium Carbonate 1250mg Tab) 1,250 mg PO BIDM [facility] Stop: 11/25/20 16:59 Last Admin: 10/30/20 17:15 Dose: 1,250 mg Documented by: Citalopram Hydrobromide (Citalopram 20 Mg Tab) 10 mg PO DAILY [facility] Stop: 11/26/20 08:59 Last Admin: 10/30/20 09:01 Dose: 10 mg Documented by: Enoxaparin Sodium (Enoxaparin Inj 40 Mg/0.4 Ml Syr) 40 mg SQ QAM [facility] Stop: 11/28/20 08:59 Last Admin: 10/30/20 09:00 Dose: 40 mg Documented by: Hydromorphone HCl (Hydromorphone Inj 0.5 Mg/0.5 Ml Syr) 0.5 mg IV Q4H PRN PRN Reason: Pain Stop: 11/09/20 13:29 Metronidazole (Flagyl) 500 mg in 100 mls @ 100 mls/hr IV Q8H [facility] Stop: 11/01/20 11:29 Last Infusion: 10/31/20 05:58 Dose: Infused Documented by: Ciprofloxacin (Cipro / D5w) 400 mg in 200 mls @ 100 mls/hr IV Q12H [facility]; Protocol Stop: 11/13/20 17:59 Last Infusion: 10/31/20 06:55 Dose: Infused Documented by: Levothyroxine Sodium (Levothyroxine Sodium 25 Mcg Tablet) 25 mcg PO DAILYBB [facility] Stop: 11/26/20 06:29 Last Admin: 10/31/20 04:56 Dose: 25 mcg Documented by: Melatonin (Melatonin 3 Mg Tab) 3 mg PO HSZ PRN PRN Reason: Sleep Stop: 11/25/20 14:57 Last Admin: 10/30/20 21:17 Dose: 3 mg Documented by: Mycophenolate Mofetil (Mycophenolate Mofetil 250 Mg Cap) 500 mg PO BID [facility] Stop: 11/27/20 20:59 Last Admin: 10/30/20 21:15 Dose: 500 mg Documented by: Ondansetron HCl (Ondansetron Inj 2 Mg/Ml 2 Ml Vial) 4 mg IV Q6H PRN PRN Reason: Nausea And Vomiting Stop: 11/25/20 13:44 Oxycodone/Acetaminophen (Oxycodone/Acetaminophen 5mg/325mg Tab) 1 tab PO Q4H PRN PRN Reason: Pain Stop: 11/11/20 13:11 Travoprost (Travoprost Z 0.004% Oph Soln 2.5 Ml Btl) 1 drops OP HS [facility] Stop: 11/25/20 20:59 Last Admin: 10/30/20 21:15 Dose: 1 drops Documented by:
[2020-10-31] MEDS ORDERED: amLODIPine BESYLATE 5 MG TAB PO ONE (10:30)
--- NOTE | 2020-10-31 11:14 | XRay Report ---
XR chest 2V PA/lateral HISTORY: 75 years-old Female post op fever acute fever COMPARISON: CTA chest and chest radiograph 10/26/2020 TECHNIQUE: PA and lateral views of the chest FINDINGS: Cardiac silhouette is normal in size. Suggested chronic interstitial lung disease. Are new patchy abbey ateral airspace opacities, most pronounced within the lateral aspect of the left upper lung and media l right lung base. No pneumothorax. Trace pleural effusions. Bones appear grossly intact. Cholecystec zen. Partially imaged stent of the upper abdomen. IMPRESSION: New patchy bilateral airspace opacities suggestive of multifocal pneumonia on a background of chronic interstitial lung disease. ACT 112: Negative or not required by law. The above report was generated using voice recognition software. It may contain grammatical, syntax o r spelling errors. Electronically signed by: Arnol Gregory M.D. 10/31/2020 11:13 AM
[2020-10-31] MEDS: MELATONIN 3 MG TAB PO PRN (20:56)
[2020-10-31] MEDS: TRAVOPROST Z 0.004% OPH SOLN 2.5 ML BTL OP SCH (20:56)
[2020-10-31] MEDS: ATORVASTATIN 10 MG TAB PO SCH (20:56)
[2020-11-01] MEDS ORDERED: levoFLOXacin/D5W 750 MG/150 ML BAG IV SCH
[2020-11-01] MEDS: metroNIDAZOLE 500 MG/100 ML BAG IV SCH (04:48)
[2020-11-01] MEDS: LEVOTHYROXINE SODIUM 25 MCG TABLET PO SCH (04:49)
--- NOTE | 2020-11-01 05:56 | Surgery Progress Note ---
Date of Service November 01, 2020 Assessment & Plan (1) Acute cholecystitis: Plan: Postoperative day #5 ERCP Postoperative day #4 laparoscopic cholecystectomy Continue analgesics as needed Continue antiemetics as needed No fevers noted in the past 24 hours. Of note, patient did have blood cultures on 10/26/2020 which grew pansensitive E. coli. Repeat blood cultures were sent on 10/30/2020 and showed no growth to date Patient is currently receiving antibiotics in the form of Levaquin and Flagyl. This can be changed to appropriate oral formulation at time of discharge Continue diet as tolerated Ambulate as tolerated Continue use of incentive spirometry Patient is doing well from surgical perspective. As her fevers have resolved discharge home from surgical perspective is acceptable. Lovenox is in place for DVT prevention Admission and Anticipated Discharge Date Admission Date: October 26, 2020 Supervising Physician Co-Signing Physician Notes I personally saw and evaluated the patient with Camron Barrera PA-C and agree with the assessment and plan She is doing well post-operatively, tolerating a diet without N/V She does have a post-op PNA for which I will defer treatment to hospitalist service She should complete a course of 7-10 PO ABX for her bacteremia/cholecystitis Subjective Patient is resting comfortably in bed. She has no complaints this morning. She is tolerating solid food without nausea or vomiting. She denies any abdominal pain. She denies any difficulty urinating. Notes her bowels have moved since her surgery. She is ambulated since her surgery and feels steady on her feet. He denies any fevers last night. Physical Exam Gastrointestinal (Abdomen): Abdomen is soft, nontender, nondistended. Bowel sounds are present. Dressings over her surgical incisions are clean, dry, and intact. Results & Data ([facility]) Vital Signs (Past 12 Hours) Vital Signs Temp Pulse Resp BP Pulse Ox 11/01/20 03:48 36.8 C 10/31/20 22:56 37.4 C 92 H 16 167/76 H 94 PG Care Time/CCT Total # of Minutes Spent Total Time Spent with Patient: Total time spent is greater than 50% in coordination of care (as documented) at patient's floor/unit and/or counseling patient: Coding Level of Care Code None Diagnoses Acute cholecystitis K81.0
[2020-11-01] MEDS: CITALOPRAM 20 MG TAB PO SCH (08:13)
[2020-11-01] MEDS: CALCIUM CARBONATE 1250MG TAB PO SCH (08:14)
[2020-11-01] MEDS: ASPIRIN 81 MG ECTAB PO SCH (08:14)
[2020-11-01] MEDS: ENOXAPARIN INJ 40 MG/0.4 ML SYR SQ SCH (08:15)
[2020-11-01] MEDS: MYCOPHENOLATE MOFETIL 250 MG CAP PO SCH (08:15)
[2020-11-01] MEDS ORDERED: amLODIPine BESYLATE 5 MG TAB PO SCH (09:00)
[2020-11-01 10:34] LABS: Hematocrit (blood only) 38.3 % (37-47); Hemoglobin 12.5 g/dL (12.0-16.0); Mean Corpuscular Hemoglobin 27.5 pg (25-34); Mean Corpuscular Hgb Conc 32.6 g/dL (32-36); Mean Corpuscular Volume 84.4 fL (80-100); Mean Platelet Volume 8.9 fL (7.4-10.4); Platelet Count 385 K/uL (130-400); RDW Coefficient of Variation 13.4 % (11.5-14.5); RDW Standard Deviation 40.6 fL (36.4-46.3); Red Blood Count 4.54 M/uL (4.2-5.4); White Blood Count 16.15 K/uL (4.8-10.8)
[2020-11-01 10:52] LABS: BUN Creatinine Ratio 10.4 (10-20); Calcium 9.2 mg/dl (8.5-10.1); Creatinine Clr Calc Pharmacy 75.8 ml/min; Est GFR (African American) 96.3 ml/min; Est GFR (Non-African American) 83.1 ml/min; Potassium 3.2 mmol/L (3.5-5.1)
[2020-11-01] MEDS ORDERED: POTASSIUM CHLORIDE CRTAB 20 MEQ TABCR PO STA (11:18)
--- NOTE | 2020-11-01 11:55 | Discharge Summary ---
Date of Service November 01, 2020 Admission HPI Per Admitting Provider She is a 75-year-old female with significant past medical history of interstitial lung disease with obstructive sleep apnea on 2 L of oxygen at night, hypertension, hyperlipidemia, hypothyroidism and glaucoma apparently has been complaining of upper abdominal pain with nausea and vomiting since Monday evening. The pain is associated with fever and chills. She denies any chest pain and/or shortness of breath, any diarrhea associated with it. She also complains to have loss of appetite for the last few days but denies any history of bloating of the abdomen after food. She was noted to have cholelithiasis with acute cholecystitis and possible choledocholithiasis in the emergency room and was admitted to the hospital for continuation of care. Admission Exam Per Admitting Provider Physical Exam: Lying in bed without any acute discomfort Constitutional: well developed, well nourished and + obese; not ill appearing Eyes: PERRL, conjunctivae normal, anicteric sclerae ENMT: external ear and nose normal, oropharynx normal Neck: trachea midline, no thyromegaly Respiratory: no respiratory distress and no cough Auscultation: + diminished lung sounds and + crackles (Minimal bibasilar crackles) Cardiovascular: Rate/Rhythm: regular rate, regular rhythm and + tachycardic Heart Sounds: normal S1 and normal S2; no murmur Extremities: no edema Gastrointestinal (Abdomen): Inspection/Auscultation: normal bowel sounds; abdomen not distended Percussion/Palpation: abdomen soft; abdomen nontender (Negative James sign) and no hepatosplenomegaly Musculoskeletal: No acute arthritis in any joint Neurologic: Alert, awake and oriented x3. No focal sensory or motor deficit appreciated Lymphatic: no cervical or axillary lymphadenopathy Principal Diagnosis Acute calculous cholecystitis 2/2 choledocholithiasis s/p stent placement and ascending cholangitis E. Coli bacteremia Post op pneumonia with hypoxia Immunosuppressed patient on cellcept with underlying ILD Discharge Exam CONSTITUTIONAL: WNWD, vitals stable, generally well-appearing EYES: normal conjunctivae, no scleral icterus ENT: external ear and nose normal, MMM NECK: trachea midline RESPIRATORY: clear to auscultation bilaterally, no crackles, rales or wheezes, normal respiratory effort CARDIOVASCULAR: regular rate and rhythm, S1 and 2 heard without murmurs, gallops or rubs, no JVD, no peripheral edema GASTROINTESTINAL: normal bowel sounds, soft, nontender, no guarding, multiple laparoscopic incision sites that are covered with dressings that are clean dry and intact. No surrounding erythema or drainage present. MUSCULOSKELETAL: strength 5/5 throughout, head is normocephalic and atraumatic SKIN: warm and dry NEUROLOGIC: CN 2-12 grossly intact, normal cognition, normal speech PSYCHIATRIC: alert cooperative and oriented to person, place and time. Euthymic mood, makes good eye contact, language grossly intact, recent and remote memory grossly intact. Discharge Data Allergies Allergy/AdvReac Type Severity Reaction Status Date / Time Penicillins Allergy Intermediate FACIAL Verified 10/26/20 08:56 SWELLING povidone-iodine AdvReac Mild SWELLING Verified 10/26/20 08:56 BURNING EYE WITH INJECTION AROUND EYE Consultations 10/26/20 12:10 Consult General Surgery Stat 10/26/20 12:12 ED Decision to Admit Stat 10/26/20 13:10 Consult Gastroenterology Routine Procedures Performed Operation Date: 10/27/20 08:20 Actual Procedures p Endoscopic Retrograde Cholangiopancreatogram with stent, sphincterotomy, stone removal(Not Applicable) - Lazarus Hansen DO Operation Date: 10/28/20 09:30 Actual Procedures p Laparoscopic Cholecystectomy(Not Applicable) - Vernon Del Castillo MD Ordered Studies Laboratory Results WBC 16.15 K/uL (4.8-10.8) H 11/01/20 10:19 RBC 4.54 M/uL (4.2-5.4) 11/01/20 10:19 Hgb 12.5 g/dL (12.0-16.0) 11/01/20 10:19 Hct 38.3 % (37-47) 11/01/20 10:19 MCV 84.4 fL (80-100) 11/01/20 10:19 MCH 27.5 pg (25-34) 11/01/20 10:19 MCHC 32.6 g/dL (32-36) 11/01/20 10:19 RDW Std Deviation 40.6 fL (36.4-46.3) 11/01/20 10:19 RDW Coeff of Julio 13.4 % (11.5-14.5) 11/01/20 10:19 Plt Count 385 K/uL (130-400) 11/01/20 10:19 MPV 8.9 fL (7.4-10.4) 11/01/20 10:19 Immature Gran % (Auto) 0.4 % 10/31/20 06:04 Neut % (Auto) 77.1 % 10/31/20 06:04 Lymph % (Auto) 9.3 % 10/31/20 06:04 [place] % (Auto) 9.2 % 10/31/20 06:04 Eos % (Auto) 3.6 % 10/31/20 06:04 Baso % (Auto) 0.4 % 10/31/20 06:04 Neut # (Auto) 11.83 K/uL (1.4-6.5) H 10/31/20 06:04 Lymph # (Auto) 1.43 K/uL (1.2-3.4) 10/31/20 06:04 [place] # (Auto) 1.41 K/uL (0.11-0.59) H 10/31/20 06:04 Eos # (Auto) 0.55 K/uL (0-0.5) H 10/31/20 06:04 Baso # (Auto) 0.06 K/uL (0-0.2) 10/31/20 06:04 Immature Gran # (Auto) 0.06 K/uL (0.00-0.02) H 10/31/20 06:04 PT 9.8 Seconds (9.0-12.0) 10/26/20 10:13 INR 1.0 (0.9-1.1) 10/26/20 10:13 APTT 22.5 Seconds (21.0-31.0) 10/26/20 10:13 PTT Ratio 0.9 10/26/20 10:13 Sodium 138 mmol/L (136-145) 11/01/20 10:19 Potassium 3.2 mmol/L (3.5-5.1) L 11/01/20 10:19 Chloride 104 mmol/L (98-107) 11/01/20 10:19 Carbon Dioxide 29 mmol/L (21-32) 11/01/20 10:19 Anion Gap 5.0 (3-11) 11/01/20 10:19 BUN 8 mg/dl (7-18) 11/01/20 10:19 Creatinine 0.72 mg/dl (0.6-1.2) 11/01/20 10:19 Est Cr Clr Drug Dosing 75.8 ml/min 11/01/20 10:19 Est GFR ( Amer) 96.3 ml/min 11/01/20 10:19 Est GFR (Non-Af Amer) 83.1 ml/min 11/01/20 10:19 BUN/Creatinine Ratio 10.4 (10-20) 11/01/20 10:19 Glucose 197 mg/dl (70-99) H 11/01/20 10:19 POC Glucose 136 mg/dl (70-99) H 10/26/20 20:15 Lactate 1.3 mmol/L (0.4-2.0) 10/26/20 09: Calcium 9.2 mg/dl (8.5-10.1) 11/01/20 10:19 Magnesium 1.8 mg/dl (1.8-2.4) 10/26/20 09:31 Total Bilirubin 0.4 mg/dl (0.2-1) 10/29/20 07:06 AST 37 U/L (15-37) 10/29/20 07:06 ALT 82 U/L (12-78) H 10/29/20 07:06 Alkaline Phosphatase 88 U/L (45-117) 10/29/20 07:06 Troponin I < 0.015 ng/ml (0-0.045) 10/26/20 09:31 Total Protein 6.1 gm/dl (6.4-8.2) L 10/29/20 07:06 Albumin 2.8 gm/dl (3.4-5.0) L 10/29/20 07:06 Globulin 3.3 gm/dl (2.5-4.0) 10/29/20 07:06 Albumin/Globulin Ratio 0.8 (0.9-2) L 10/29/20 07:06 Procalcitonin 0.49 ng/ml (0-0.5) 10/26/20 09:31 Specimen Hemolysis 10/26/20 09:31 Urine Color Yellow 10/27/20 06:00 Urine Appearance Clear (Clear) 10/27/20 06:00 Urine pH 6.0 (4.5-7.5) 10/27/20 06:00 Ur Specific [place] 1.014 (1.000-1.030) 10/27/20 06:00 Urine Protein Negative (Negative) 10/27/20 06:00 Urine Glucose (UA) Negative (Negative) 10/27/20 06:00 Urine Ketones 1+ (Negative) H 10/27/20 06:00 Urine Blood Negative (Negative) 10/27/20 06:00 Urine Nitrite Negative (Negative) 10/27/20 06:00 Urine Bilirubin Negative (Negative) 10/27/20 06:00 Urine Urobilinogen Negative (Negative) 10/27/20 06:00 Ur Leukocyte Esterase Trace (Negative) H 10/27/20 06:00 Urine WBC (Auto) 5-10 /hpf (0-5) H 10/27/20 06:00 Urine RBC (Auto) 0-4 /hpf (0-4) 10/27/20 06:00 U Hyaline Cast (Auto) 0 /lpf (0-5) 10/27/20 06:00 U Epithel Cells (Auto) 20-30 /lpf (0-5) H 10/27/20 06:00 Urine Bacteria (Auto) Negative (Negative) 10/27/20 06:00 COVID-19 Eval Order Covid19 at [facility] 11/01/20 09:15 SARS-CoV-2 (PCR) NEGATIVE (Negative) 11/01/20 09:15 Impressions Abdomen/Pelvis CT 10/26/20 09:17 CT ANGIOGRAM OF THE CHEST; CT SCAN OF THE ABDOMEN AND PELVIS WITH IV CONTRAST CLINICAL HISTORY: Atypical chest pain. Sepsis. Generalized abdominal pain. COMPARISON STUDY: Chest CT scans dated 04/01/2020 and 09/08/2017. Chest x-ray dated 10/26/2020. TECHNIQUE: Following the IV administration of 120 of Optiray 320, CT angiogram of the chest is performed from the upper abdomen to the thoracic inlet utilizing the pulmonary embolus protocol. Images are reviewed in the axial, sagittal, coronal planes. 3-D MIPS images are created and assessed. Subsequently, CT scan of the abdomen and pelvis was performed from the lung bases to the proximal femora. Images are reviewed in the axial, sagittal, and coronal planes. IV contrast was administered without complication. A dose lowering technique was utilized adhering to the principles of ALARA. CT DOSE: 1330.34 mGy.cm FINDINGS: CHEST: Thyroid: Imaged portions of the thyroid gland are normal in size and attenuation. Thoracic aorta: There is mild atherosclerotic calcification of the thoracic aorta, which is normal in caliber and demonstrates standard 3-vessel arch anatomy. No dissection is seen. Pulmonary vasculature: The pulmonary trunk is normal in caliber. There are no filling defects identified in the main, lobar, or segmental pulmonary arteries to indicate pulmonary embolus. Heart: The heart is normal in size and without pericardial effusion. There are coronary artery calcifications. Lungs and pleural spaces: Postoperative change is seen in the right upper and right middle lobes. There is no airspace consolidation typical for pneumonia or pleural effusion. Groundglass opacities with subpleural reticulation and foci of architectural distortion are again seen throughout both lungs. Mild traction bronchiectasis is seen in the lower lobes, this is consistent with chronic lung disease. The trachea and central airways are clear. Scattered foci of air trapping are seen throughout both lungs. Mediastinum: A mildly enlarged precarinal node measures 14 mm in short axis. Magy: Prominent hilar nodes measure up to 10 mm in short axis. Axillae: There is no axillary lymphadenopathy. Bony thorax: The skeletal structures are osteopenic. No lytic or blastic lesions are identified. ABDOMEN AND PELVIS: Liver: The contrast-enhanced liver is normal in size, contour, and attenuation. There is no intrahepatic or ductal dilatation. The hepatic veins and portal veins are patent. Gallbladder: There are several calcified gallstones which measure up to 2.1 cm. The gallbladder is distended. The gallbladder wall is thickened and edematous with mucosal hyperemia, and there is mild pericholecystic stranding. Findings are typical for acute cholecystitis. Spleen: Normal in size and attenuation. Pancreas: Unremarkable. Adrenal glands: A 12 mm right adrenal adenoma is unchanged. The left adrenal gland is normal as imaged. Kidneys: The contrast enhanced kidneys are normal in size and without hydronephrosis. Numerous renal sinus cysts are seen bilaterally. Scattered s ubcentimeter cortical hypodensities likely represent cysts but are too small for definitive characterization. The kidneys enhance symmetrically. Abdominal vasculature: The abdominal aorta is normal in course and caliber noting moderate atherosclerotic calcification. Stomach and bowel: There is a small hiatal hernia there is no bowel obstruction. A duodenal diverticulum is incidentally noted. The appendix is well-visualized and normal. Peritoneum: There is no intraperitoneal free air or abdominal ascites. Lymphadenopathy: None. Pelvic viscera: The bladder is normal as imaged. The endometrium appears thickened for age measuring up to 11 mm. No adnexal lesion is seen. Skeletal structures: The skeletal structures are osteopenic. There is mild lumbosacral spondylosis. Sclerotic change is noted in the sacroiliac joints and pubic symphysis. No lytic or blastic lesions are seen. Soft tissues: A 1.8 cm sebaceous cyst is noted in the left lower back on image #160. IMPRESSION: 1. Cholelithiasis with evidence of acute cholecystitis. Surgical consultation is advised. 2. There is no evidence of pulmonary embolus in the main, lobar, or segmental pulmonary arteries. 3. There is no airspace consolidation typical for pneumonia or pleural effusion. 4. Chronic parenchymal and postoperative changes as above suggesting chronic interstitial/inflammatory lung disease. This is similar in appearance to prior studies. 5. Mildly enlarged mediastinal and hilar nodes are nonspecific and likely related to chronic lung disease. 6. The endometrium appears thickened for age. This is not well assessed by CT, and nonemergent/outpatient gynecology follow-up and pelvic ultrasound are recommended for further evaluation. 7. Additional findings as above. ACT 112: Positive. There are findings on this exam that require communication between the performing entity and the patient following Patient Test Result Information Act ([place] Act 112) guidelines. Electronically signed by: Hayden Swan M.D. 10/26/2020 10:51 AM Chest CTA 10/26/20 09:17 CT ANGIOGRAM OF THE CHEST; CT SCAN OF THE ABDOMEN AND PELVIS WITH IV CONTRAST CLINICAL HISTORY: Atypical chest pain. Sepsis. Generalized abdominal pain. COMPARISON STUDY: Chest CT scans dated 04/01/2020 and 09/08/2017. Chest x-ray dated 10/26/2020. TECHNIQUE: Following the IV administration of 120 of Optiray 320, CT angiogram of the chest is performed from the upper abdomen to the thoracic inlet utilizing the pulmonary embolus protocol. Images are reviewed in the axial, sagittal, coronal planes. 3-D MIPS images are created and assessed. Subsequently, CT scan of the abdomen and pelvis was performed from the lung bases to the proximal femora. Images are reviewed in the axial, sagittal, and coronal planes. IV contrast was administered without complication. A dose lowering technique was utilized adhering to the principles of ALARA. CT DOSE: 1330.34 mGy.cm FINDINGS: CHEST: Thyroid: Imaged portions of the thyroid gland are normal in size and attenuation. Thoracic aorta: There is mild atherosclerotic calcification of the thoracic aorta, which is normal in caliber and demonstrates standard 3-vessel arch anatomy. No dissection is seen. Pulmonary vasculature: The pulmonary trunk is normal in caliber. There are no filling defects identified in the main, lobar, or segmental pulmonary arteries to indicate pulmonary embolus. Heart: The heart is normal in size and without pericardial effusion. There are coronary artery calcifications. Lungs and pleural spaces: Postoperative change is seen in the right upper and right middle lobes. There is no airspace consolidation typical for pneumonia or pleural effusion. Groundglass opacities with subpleural reticulation and foci of architectural distortion are again seen throughout both lungs. Mild traction bronchiectasis is seen in the lower lobes, this is consistent with chronic lung disease. The trachea and central airways are clear. Scattered foci of air trapping are seen throughout both lungs. Mediastinum: A mildly enlarged precarinal node measures 14 mm in short axis. Magy: Prominent hilar nodes measure up to 10 mm in short axis. Axillae: There is no axillary lymphadenopathy. Bony thorax: The skeletal structures are osteopenic. No lytic or blastic lesions are identified. ABDOMEN AND PELVIS: Liver: The contrast-enhanced liver is normal in size, contour, and attenuation. There is no intrahepatic or ductal dilatation. The hepatic veins and portal veins are patent. Gallbladder: There are several calcified gallstones which measure up to 2.1 cm. The gallbladder is distended. The gallbladder wall is thickened and edematous with mucosal hyperemia, and there is mild pericholecystic stranding. Findings are typical for acute cholecystitis. Spleen: Normal in size and attenuation. Pancreas: Unremarkable. Adrenal glands: A 12 mm right adrenal adenoma is unchanged. The left adrenal gland is normal as imaged. Kidneys: The contrast enhanced kidneys are normal in size and without hydronephrosis. Numerous renal sinus cysts are seen bilaterally. Scattered subcentimeter cortical hypodensities likely represent cysts but are too small for definitive characterization. The kidneys enhance symmetrically. Abdominal vasculature: The abdominal aorta is normal in course and caliber noting moderate atherosclerotic calcification. Stomach and bowel: There is a small hiatal hernia there is no bowel obstruction. A duodenal diverticulum is incidentally noted. The appendix is well-visualized and normal. Peritoneum: There is no intraperitoneal free air or abdominal ascites. Lymphadenopathy: None. Pelvic viscera: The bladder is normal as imaged. The endometrium appears thickened for age measuring up to 11 mm. No adnexal lesion is seen. Skeletal structures: The skeletal structures are osteopenic. There is mild lumbosacral spondylosis. Sclerotic change is noted in the sacroiliac joints and pubic symphysis. No lytic or blastic lesions are seen. Soft tissues: A 1.8 cm sebaceous cyst is noted in the left lower back on image #160. IMPRESSION: 1. Cholelithiasis with evidence of acute cholecystitis. Surgical consultation is advised. 2. There is no evidence of pulmonary embolus in the main, lobar, or segmental pulmonary arteries. 3. There is no airspace consolidation typical for pneumonia or pleural effusion. 4. Chronic parenchymal and postoperative changes as above suggesting chronic interstitial/inflammatory lung disease. This is similar in appearance to prior studies. 5. Mildly enlarged mediastinal and hilar nodes are nonspecific and likely related to chronic lung disease. 6. The endometrium appears thickened for age. This is not well assessed by CT, and nonemergent/outpatient gynecology follow-up and pelvic ultrasound are recommended for further evaluation. 7. Additional findings as above. ACT 112: Positive. There are findings on this exam that require communication between the performing entity and the patient following Patient Test Result Information Act ([place] Act 112) guidelines. Electronically signed by: Hayden Swan M.D. 10/26/2020 10:51 AM Cholangiopancreatography MRI 10/26/20 11:49 MRCP CLINICAL HISTORY: Elevated hepatic transaminases. Cholecystitis. COMPARISON STUDY: Abdominal CT performed the same day 10/26/2020. TECHNIQUE: Abdominal MRCP is performed utilizing various T2-weighted sequences in the axial and coronal planes. 3-D reformats were created and assessed. IV contrast was not administered for this examination. The Examination is modestly degraded by motion artifact. FINDINGS: The gallbladder is distended and contains gallstones. A large stone in the region of the gallbladder neck measures up to 2 cm. The gallbladder wall is thickened and edematous, and there is mild pericholecystic stranding. Findings are consistent with acute cholecystitis. There is no intra or extrahepatic biliary ductal dilatation. The common bile duct measures up to 4 mm in diameter. No intraluminal filling defects identified to suggest choledocholithiasis. The pancreatic duct is normal in caliber. The unenhanced pancreas, spleen, adrenal glands, and liver are grossly normal. The kidneys demonstrate mild cortical atrophy. Cortical and renal sinus cysts are seen bilaterally. The abdominal aorta is normal in caliber. There is no bowel obstruction. No abdominal ascites is seen. There is no pleural effusion. The bony structures are intact as imaged. A sebaceous cyst is incidentally noted in the left lower back. There is a small hiatal hernia. IMPRESSION: 1. Cholelithiasis and acute cholecystitis. 2. Otherwise normal MRCP. There is no evidence of choledocholithiasis. Electronically signed by: Hayden Swan M.D. 10/26/2020 5:10 PM Chest X-Ray 10/31/20 10:16 XR chest 2V PA/lateral HISTORY: 75 years-old Female post op fever acute fever COMPARISON: CTA chest and chest radiograph 10/26/2020 TECHNIQUE: PA and lateral views of the chest FINDINGS: Cardiac silhouette is normal in size. Suggested chronic interstitial lung diseas e. Are new patchy bilateral airspace opacities, most pronounced within the lateral aspect of the left upper lung and medial right lung base. No pneumothorax. Trace pleural effusions. Bones appear grossly intact. Cholecystectomy. Partially imaged stent of the upper abdomen. IMPRESSION: New patchy bilateral airspace opacities suggestive of multifocal pneumonia on a background of chronic interstitial lung disease. ACT 112: Negative or not required by law. The above report was generated using voice recognition software. It may contain grammatical, syntax or spelling errors. Electronically signed by: Arnol Gregory M.D. 10/31/2020 11:13 AM Hospital Course (1) Acute calculous cholecystitis: Sepsis secondary to acute calculus cholecystitis with possible choledocholithiasis Presented with abdominal pain, nausea vomiting and fever Noted to have tachycardia, fever of more than 38 C and white count elevated at 13.23 on admission. Status post ERCP-extraction of choledochal stones and dilation of the sphincter with a stent placement on 10/27 Then underwent lap lamont on 10/28 and is healing well E. coli bacteremia noted on blood cultures. This is likely secondary to passage of stone. Repeat blood cultures are preliminarily negative at time of discharge with final reading pending. She remained afebrile with an elevated white count that is improved from 17 K to 15 K at time of discharge. She was originally on ertapenem for several days then started on ciprofloxacin. She continues on Flagyl. Continue current antibiotics and monitor for continued fevers, likely related to post operative pneumonia. She was switched to levaquin monotherapy for coverage of both her E coli bacteremia and her pneumonia. She was also continued on flagyl for another week with the discovery of ascending cholangitis. Will need ERCP in 6 weeks to remove stent (2) Ascending cholangitis: (3) E coli bacteremia: (4) Interstitial lung disease: (5) Obstructive sleep apnea syndrome: (6) Left lower lobe pulmonary nodule: (7) Hypertension: Total Time Total Time Spent Total Time Spent (In Minutes): 60 Discharge Plan Discharge Items Patient Disposition: Home - Self-Care Reason For Visit: CHOLECYSTITIS Discharge Diagnosis: Acute calculous cholecystitis 2/2 choledocholithiasis s/p stent placement and ascending cholangitis E. Coli bacteremia Post op pneumonia with hypoxia Immunosuppressed patient on cellcept with underlying ILD Condition on Discharge: Good Activity: Resume your previous activity Non-emergency contact: Primary Care Provider Call non-emergency contact if: your symptoms worsen Follow-up/Referrals: Lazarus Hansen DO [Physician] - ([facility] Gastroenterology office will call you for a follow up regarding your stent.) Alan Borrero MD [Primary Care Provider] - (Date & Time 11/02/2020 3:40 PM Provider Julia Alvarez MD Department [facility] ) Vernon Del Castillo MD [Physician] - ([facility] General Surgery office will call you with an appointment for follow up.) Diet: Heart Healthy Addtl Attending Provider Instructions: Please take all medications as instructed on discharge list below. Please follow-up with Dr. Gagan Hansen at [facility] Gastroenterology at the time and date above. You will need to have your biliary duct stent removed in approximately 6 weeks time. On imaging in the hospital a 12 mm adrenal adenoma on the right is unchanged. Also your endometrial uterine lining appears thickened for your age. This is not well assessed by CT scan, and a nonemergent/outpatient gynecology follow-up and pelvic ultrasound are recommended for further evaluation. This may be ordered by your primary care doctor on follow-up. Postoperatively you were found to have new patchy bilateral airspace opacities suggestive of multifocal pneumonia in a setting of chronic interstitial lung disease. You are given a course of antibiotics to complete for treatment of this and for the bacteria in your blood. A repeat chest x-ray is recommended in 4 weeks which may be ordered by your primary care doctor at follow-up. During her stay in the hospital you had a higher than normal blood pressure which should be followed up with a repeat check in 1 week by her primary care doctor. At this time a repeat complete blood count (CBC) is also recommended as you left the hospital with an elevated white blood count of 16 K. If you experience high fever, worsening oxygen needs, shortness of breath or other concerning symptoms, please seek immediate medical attention. Please follow all postoperative surgical instructions including activity restrictions and follow-up. There are no specific dietary restrictions. As instructed above a 1 week follow-up with your primary care doctor is recommended for reasons listed and to ensure you are doing well after going home. Your supplier is being faxed a prescription for your increased oxygen needs which should decrease as you improve from your pneumonia. It was a pleasure taking care of you! Please call if you have any questions or problems. You can reach a [facility] hospitalist on duty at [facility] 24 hours a day by calling [phone]. Take care of yourself. Krissy Abraham DO [facility] Hospitalist Addtl Rest Room Attendant Provider Instructions: Post-Surgical ~Discharge Instructions Activity Recommendations: - lifting limitation: (25 pounds for 4 weeks), - exercise/sex/sports limit: (nonstrenuous for 2 weeks), - driving or machine use limit: (none for 1 week or until pain free), - Shower/bathe limit: (may shower beginning Monday) Diet: - Resume previous diet SPECIAL CARE INSTRUCTIONS: - May shower on Monday. Sponge bath and wash hair in meantime. On Monday, remove outer dressings and shower. Let water run over area and pat dry. - Leave steri strips on for one week and then remove. They may fall off on their own that is okay. - Call the surgeon's office with any questions or concerns - - (ex. temperature higher than 101 degrees F, excessive bleeding or pain). MEDICATIONS: - Resume previous medications unless instructed otherwise by your surgeon. - May take extra strength Tylenol as needed for pain (500-650 mg Tylenol every 6 hours as needed) FOLLOW UP VISIT: - If not already scheduled, please call the office to schedule a two week follow-up appointment. Office number Pending Studies at Discharge: Yes Stand-Alone Forms: [facility] Medications and DC Order Prescriptions: New oxycodone-acetaminophen [Percocet] 5-325 mg Tablet 1 tab PO Q4H PRN (Reason: pain) Qty: 20 RF: 0 metronidazole 500 mg Tablet 500 mg PO Q8 Qty: 21 RF: 0 levofloxacin 750 mg tablet 750 mg PO HS Qty: 7 RF: 0 Continued citalopram [Celexa] 10 mg tablet 10 mg PO DAILY Qty: 30 RF: 0 mycophenolate mofetil 500 mg tablet 500 mg PO BID RF: 0 (DME) Flutter Valve Device See Rx Instructions .ROUTE .MEDSUPPLY Qty: 1 RF: 0 melatonin 3 mg capsule 3 mg PO DAILY PRN (Reason: Sleep) RF: 0 amlodipine 5 mg Tablet 5 mg PO QAM RF: 0 atorvastatin [Lipitor] 10 mg Tablet 10 mg PO QPM RF: 0 travoprost [Travatan Z] 0.004 % Drops 1 drp OPHTHALMIC (EYE) HS RF: 0 calcium carbonate [Calcium 600] 600 mg calcium (1,500 mg) Tablet 600 mg PO BID RF: 0 levothyroxine 25 mcg Capsule 25 mcg PO QAM RF: 0 aspirin [Aspirin Low Dose] 81 mg Tablet,Delayed Release (Dr/Ec) 81 mg PO QAM RF: 0 Discharge Orders: Discharge Order (Routine); Ordered 11/01/20 Ordered By: Krissy Abraham Admission Data Admit Date/Time: 10/26/20 13:11 Attending Provider: Krissy Abraham Admit Provider: Mauro Deshpande Primary Care Provider: Alan Borrero Other Providers: Vernon Del Castillo ; Mauro Deshpande ; Mik Mueller Other Interventions: Discharge Summary Assessment (RN) Last Done: 11/01/20 12:20
[2020-11-01] MEDS ORDERED: metroNIDAZOLE 500 MG TAB PO SCH (13:00)
== END 2020-11-01 14:42 | disposition home or self-care (01) | DRG 872 ==
LOC: ED 08:48 → SUATTDRO 13:11 → 2N 13:11